=== PATIENT | female | born 1975 | race Caucasian/White ===

== ENCOUNTER 2020-02-28 08:18 | Emergency (ER) | payer MEDICARE, SELFPAY ==
[2020-02-28 08:28] VITALS: BP 135/80; PULSE 86; RESP 18; TEMP 36.6; O2SAT 100; BMI 31.0
--- NOTE | 2020-02-28 09:02 | XR_ITS ---
EXAMINATION: XR CHEST CLINICAL INFORMATION: Chest pain COMPARISON: None TECHNIQUE: Portable upright AP view of the chest was obtained. FINDINGS: There is no pneumothorax or pleural reaction. No airspace consolidation or groundglass opacity or effusion. The heart is normal in size. The costophrenic sulci are clear. The hilar and mediastinal contours are normal. No acute bony abnormality demonstrated. XR/XR chest 1V IMPRESSION: Unremarkable examination.
--- NOTE | 2020-02-28 09:02 | ECG_ITS ---
Test Reason : CHEST PAIN Blood Pressure : / mmHG Vent. Rate : 078 BPM Atrial Rate : 078 BPM P-R Int : 136 ms QRS Dur : 072 ms QT Int : 380 ms P-R-T Axes : 054 003 016 degrees QTc Int : 433 ms Normal sinus rhythm Nonspecific T wave abnormality Abnormal ECG When compared with ECG of 24-FEB-2017 15:04, No significant change was found Referred By: Rose Jordan Electronically Signed By:DREA XAVIER MD
--- NOTE | 2020-02-28 09:03 | ED_ITS ---
HPI - Chest Pain General Chief Complaint: Chest Pain Stated Complaint: SHOULDER PAIN, LEFT ARM NUMBNESS Time Seen by Provider: 02/28/20 09:01 Source: patient Mode of arrival: ambulatory Limitations: no limitations History of Present Illness HPI narrative: 44 y/o female with history of DM on insulin, depression who p resents with acute onset of sharp left sided chest pain that woke her from sleep at 3am. She states it is intermittent, worse with deep breaths, and has now improved to 7/10 from 02/01. She denies cardiac history in herself or her family. She denies nausea, SOB, diaphoresis. She states the pain radiates to her left anterior shoulder and she has some slight tingling in her left arm which is improving. MD complaint: chest pain Pertinent past history: asthma Onset (ago): hour(s) (6) Timing of current episode: episodic and still present Prior episodes: Yes Onset: during rest Pain location: left chest Pain radiation: left shoulder Severity: moderate Quality: sharp Relieving factors: rest Exacerbating factors: inspiration Treatment prior to arrival: none Risk Factors Coronary artery disease risk factors: diabetes Thoracic aortic dissection risk factors: none Related Data On Oral Contraceptives: No Previous Rx's Medication Instructions Recorded naproxen 500 mg PO BID PRN #20 tab 02/28/20 Allergies Allergy/AdvReac Type Severity Reaction Status Date / Time No Known Allergies Allergy Verified 02/28/20 08:34 metformin AdvReac Unknown diarrhea Uncoded 01/02/14 00:00 Review of Systems Review of Systems: Constitutional: No Fever, No Chills ENT/Mouth: No sore throat, No Rhinorrhea, No Swallowing Difficulty Eyes: No Eye Pain, No Swelling, No Redness Cardiovascular: + Chest Pain, No SOB, No Orthopnea, No Edema Respiratory: No Cough, No Sputum, No Wheezing, No dyspnea Gastrointestinal: No Nausea, No Vomiting, No Diarrhea, No abdominal Pain, No Hematochezia, No Melena Genitourinary: No Dysuria, No Urinary Frequency, No Hematuria Musculoskeletal: + joint pain, No Myalgias Skin: No Skin Lesions, No rash Neuro: No Weakness, + tingling/numbness, No Dizziness, No Headache Psych: No Anxiety/Panic, No Depression Heme/Lymph: No Bruising, No Lymphadenopathy Endocrine: No Polyuria, No Polydipsia PMFSH Past Medical History Attestation statement: The following information was validated with the patient. Medical History Diabetes Surgical History History of hysterectomy Social History Social History Advance Directives: Yes Advance Directives Information Provided: Yes Advance Directives on File: No Physical Exam Vital Signs: Vital Signs: Vital Signs Temp Pulse Resp BP Pulse Ox 02/28/20 08:28 98 F 86 18 135/80 100 Body Mass Index 31.0 Appearance: Alert. Oriented X3. No acute distress. Non-toxic appearing. Eyes: Pupils equal, round and reactive to light. ENT: Pharynx normal. Neck: Normal inspection. Neck supple. No JVD. CVS: Normal heart rate and rhythm. No murmur appreciapted Pulses normal. Respiratory: No respiratory distress. Slight expiratory wheeze at left base. No rhonchi or rales. Abdomen: Soft and non-tender. +BS x4 Skin: Skin warm and dry. Normal skin color. Normal skin turgor. No rashes. Extremities: No lower extremity edema. Negative Camilo's sign. Neuro: Oriented X 3. No motor deficit. No sensory deficit. Course Course Course Narrative: 44 y/o female with hx DM presenting with intermittent left sided chest pain that radiates to left shoulder. Need to r/o ACS, PE. EKG, labs, IVF and aspirin ordered. Dispo pending results and improvement. Reevaluation(s) Reevaluation #1: Pain continues to improve but it still present with deep inspiration. Lab workup is very reassuring with normal DDIMER, negative troponin, BNP. CXR normal. EKG did not show ischemic changes. Results were discussed with patient. Etiology of her pain is possibly costochondtitis vs atypical chest pain. She is stable for discharge at this time with plan to follow up with PCP. Strict return precautions discussed and patient expressed understanding. MDM - Chest Pain MDM Narrative Medical decision making narrative: possible pneumonia, asthma exercabation, ACS, PE Differential Diagnosis Differential diagnosis: Likely pneumothorax, stable angina, unstable angina pectoris, atypical chest pain, st elevation myocardial infarction, costochondritis, chest pain and biliary colic Medical Records Data Attestation: I reviewed the patient's medical records. Lab Data Attestation: I reviewed the patient's lab results. Result diagrams: 02/28/20 09:13 02/28/20 09:13 Labs: Lab Results 02/28/20 02/28/20 02/28/20 Range/Units 09:13 09:13 09:13 WBC 6.7 (4.8-10.8) X10*3/uL RBC 5.22 (4.20-5.50) X10*6/uL Hgb 15.8 (12.0-16.0) g/dl Hct 46.4 (37-47) % MCV 88.9 (80-98) fL MCH 30.3 (27.0-33.0) pg MCHC 34.1 (31.0-35.0) g/dl RDW 11.9 (11.0-16.0) % Plt Count 268 (160-400) X10*3/uL MPV 10.4 (9.4-12.3) fL Immature Gran % (Auto) 0.3 (0.0-0.4) % Neut % (Auto) 56.3 (45-73) % Lymph % (Auto) 33.7 (20-40) % [place] % (Auto) 7.7 (2-11) % Eos % (Auto) 1.4 (0-4) % Baso % (Auto) 0.6 (0-2) % Lymph # (Auto) 2.2 (1.2-4.9) X10*3/uL [place] # (Auto) 0.5 (0.1-1.2) X10*3/uL Eos # (Auto) 0.1 (0.0-0.4) X10*3/uL Baso # (Auto) 0.0 (0.0-0.2) X10*3/uL Abs Immat Gran (auto) 0.02 (0.00-0.03) X10*3/uL Absolute Neuts (auto) 3.8 (2.0-8.3) X10*3/uL Absolute Nucleated RBC 0.000 (0.0-0.012) X10*3/uL Nucleated RBC % (auto) 0.0 (0.0-0.2) /100WBC D-Dimer 207 NG/ML Sodium 140 (135-145) mmol/L Potassium 4.8 (3.3-5.1) mmol/l Chloride 105 (96-108) mmol/L Carbon Dioxide 25 (22-29) mmol/L Anion Gap 15 (12-20) BUN 9 (9-16) mg/dL Creatinine 0.70 (0.5-1.4) mg/dL Estim Creat Clear Calc 105.1 Estimated GFR > 60 Random Glucose 146 H (60-115) mg/dL Calcium 8.9 (8.4-10.2) mg/dL Magnesium 1.9 (1.6-2.6) mg/dL Troponin I High Sens (<3.5-17.0) ng/L B-Natriuretic Peptide (<100) pg/mL 02/28/20 Range/Units 09:13 WBC (4.8-10.8) X10*3/uL RBC (4.20-5.50) X10*6/uL Hgb (12.0-16.0) g/dl Hct (37-47) % MCV (80-98) fL MCH (27.0-33.0) pg MCHC (31.0-35.0) g/dl RDW (11.0-16.0) % Plt Count (160-400) X10*3/uL MPV (9.4-12.3) fL Immature Gran % (Auto) (0.0-0.4) % Neut % (Auto) (45-73) % Lymph % (Auto) (20-40) % [place] % (Auto) (2-11) % Eos % (Auto) (0-4) % Baso % (Auto) (0-2) % Lymph # (Auto) (1.2-4.9) X10*3/uL [place] # (Auto) (0.1-1.2) X10*3/uL Eos # (Auto) (0.0-0.4) X10*3/uL Baso # (Auto) (0.0-0.2) X10*3/uL Abs Immat Gran (auto) (0.00-0.03) X10*3/uL Absolute Neuts (auto) (2.0-8.3) X10*3/uL Absolute Nucleated RBC (0.0-0.012) X10*3/uL Nucleated RBC % (auto) (0.0-0.2) /100WBC D-Dimer NG/ML Sodium (135-145) mmol/L Potassium (3.3-5.1) mmol/l Chloride (96-108) mmol/L Carbon Dioxide (22-29) mmol/L Anion Gap (12-20) BUN (9-16) mg/dL Creatinine (0.5-1.4) mg/dL Estim Creat Clear Calc Estimated GFR Random Glucose (60-115) mg/dL Calcium (8.4-10.2) mg/dL Magnesium (1.6-2.6) mg/dL Troponin I High Sens < 3.5 (<3.5-17.0) ng/L B-Natriuretic Peptide < 10 (<100) pg/mL ECG Data ECG #1: Attestation: I personally reviewed and interpreted this ECG as follows: ECG interpretation date: 02/28/20 ECG interpretation time: 08:36 Interpretation: normal sinus rhythm, HR 78 bpm, normal WI interval. no ischemic changes Discharge Plan Discharge Clinical Impression: Atypical chest pain Patient Disposition: Home, Self-Care Instructions: Chest Pain (ED), Costochondritis (ED) Additional Instructions: You lab workup today was unremarkable. Life-threatening causes of chest pain were ruled out. It is possible your pain is from inflammation of the muscle between your ribs - we will start you on an anti-inflammatory medication for this. If you have return of worsening chest pain or if you develop change in chest pain or shortness of breath call 911 or come back to the ER for further evaluation. Follow up with your Primary Care doctor next week. Prescriptions: New naproxen 500 mg tablet 500 mg PO BID PRN (Reason: pain) Qty: 20 RF: 0
[2020-02-28] MEDS: 0.9 % Sodium Chloride 1,000 ML 999 ML IVCONT (09:10)
[2020-02-28 09:17] LABS: MANUAL DIFF FLAG NO
[2020-02-28 09:19] LABS: Hematocrit 46.4 % (37-47); Hemoglobin 15.8 g/dl (12.0-16.0); Mean Corpuscular HGB Conc 34.1 g/dl (31.0-35.0); Mean Corpuscular Hemoglobin 30.3 pg (27.0-33.0); Mean Corpuscular Volume 88.9 fL (80-98); Red Blood Count 5.22 X10*6/uL (4.20-5.50); White Blood Count 6.7 X10*3/uL (4.8-10.8)
[2020-02-28 09:20] LABS: Basophils Percent Auto 0.6 % (0-2); Eosinophils Absolute Auto 0.1 X10*3/uL (0.0-0.4); Eosinophils Percent Auto 1.4 % (0-4); Imm Gran Abs Auto 0.02 X10*3/uL (0.00-0.03); Imm Gran Pct Auto 0.3 % (0.0-0.4); Lymphocytes Absolute Auto 2.2 X10*3/uL (1.2-4.9); Lymphocytes Percent Auto 33.7 % (20-40); Mean Platelet Volume 10.4 fL (9.4-12.3); Monocytes Absolute Auto 0.5 X10*3/uL (0.1-1.2); Monocytes Percent Auto 7.7 % (2-11); Neutrophils Absolute Auto 3.8 X10*3/uL (2.0-8.3); Neutrophils Percent Auto 56.3 % (45-73); Platelet Count 268 X10*3/uL (160-400); Red Cell Distribution Width 11.9 % (11.0-16.0)
[2020-02-28] MEDS: Aspirin 325 MG TABLET PO (09:22)
[2020-02-28 09:30] LABS: D Dimer 207 NG/ML
[2020-02-28 09:59] LABS: B Type Natriuretic Peptide < 10 pg/mL (<100); Troponin-I High Sensitivity < 3.5 ng/L (<3.5-17.0)
[2020-02-28 10:00] LABS: Anion Gap 15 (12-20); Blood Urea Nitrogen 9 mg/dL (9-16); Calcium 8.9 mg/dL (8.4-10.2); Carbon Dioxide 25 mmol/L (22-29); Chloride 105 mmol/L (96-108); Creatinine Clr Calc Pharmacy 105.1; Estimated Glomerular Filt Rate > 60; Glucose Random 146 mg/dL (60-115); Magnesium 1.9 mg/dL (1.6-2.6); Potassium 4.8 mmol/l (3.3-5.1); Sodium 140 mmol/L (135-145)
[2020-02-28 11:10] VITALS: BP 130/79; PULSE 81; RESP 18; O2SAT 98
== END 2020-02-28 11:13 | disposition home or self-care (01) ==
PROVIDERS: Physician Assistant; Emergency Provider Emergency Medicine; PCP Internal Medicine
DX: R07.89 Other chest pain (principal); M25.512 Pain in left shoulder; E11.9 Type 2 diabetes mellitus without complications; J45.909 Unspecified asthma, uncomplicated; Z79.4 Long term (current) use of insulin; Z79.899 Other long term (current) drug therapy
CPT/HCPCS: 36415; 71045; 80048; 83735; 83880; 84484; 85025; 85379; 93005; 96360; 99284

== ENCOUNTER 2020-06-20 10:06 | Outpatient (REF) | payer MEDICARE, SELFPAY ==
--- NOTE | ~2020-06-20 | MM_ITS ---
EXAMINATION: MM SCREENING DIGITAL BREAST TOMOSYNTHESIS, BILATERAL CLINICAL INFORMATION: Screening. Asymptomatic. The lifetime risk of breast cancer based on the Tyrer-Cuzick Model is 8%. COMPARISON: Mammography: 10/01/2016, outside exam 08/08/2015 ([facility]). TECHNIQUE: Digital breast tomosynthesis is performed in both the craniocaudal and mediolateral oblique views along with computer-aided detection (CAD). Synthesized 2D images are generated from the tomosynthesis. FINDINGS: There are scattered areas of fibroglandular density (ACR BI-RADS breast composition Category b). There are no significant masses, abnormal calcifications, or other abnormalities. Parenchymal pattern is similar to prior studies. There is no developing density or architectural abnormality. There are scattered benign round and dermal calcifications again seen. No significant changes. MM/MM tomosynthesis screening BI IMPRESSION: No mammographic evidence of malignancy. ASSESSMENT: BI-RADS 2: Benign RECOMMENDATION: Routine annual mammography screening. This patient's information was entered into a reminder system with a target due date for their next mammogram.
== END 2020-06-20 10:07 | disposition home or self-care (01) ==
LOC: HO.MAMMO 10:06
PROVIDERS: Visit Provider Internal Medicine
DX: Z12.31 Encounter for screening mammogram for malignant neoplasm of breast (principal)
CPT/HCPCS: 77063; 77067

== ENCOUNTER 2020-07-07 09:43 | Outpatient (REF) | payer MEDICARE, SELFPAY ==
--- NOTE | ~2020-07-07 | US_ITS ---
EXAMINATION: US ABDOMEN COMPLETE CLINICAL INFORMATION: Abnormal findings of blood chemistry. COMPARISON: CT abdomen pelvis 11/30/2008. TECHNIQUE: Real-time imaging of the abdominal viscera. FINDINGS: PANCREAS: The head and body the pancreas are normal. Tail obscured by gas. ABDOMINAL AORTA: The proximal, mid, and distal segments are normal in caliber. INFERIOR VENA CAVA: Visualized portions are normal. LIVER: Liver echotexture is increased. The liver is normal in size. The liver contour is normal. No focal hepatic lesion. There is no intrahepatic biliary duct dilatation seen. GALLBLADDER: The gallbladder is physiologically distended. There is a 6 mm echogenic density adjacent to the gallbladder wall that does not move or shadow probably representing a polyp. No definite gallstones are seen. The gallbladder wall is otherwise normal. COMMON BILE DUCT: Normal in caliber measuring 0.45 cm in diameter. RIGHT KIDNEY: Normal. No hydronephrosis. No renal calculi or focal parenchymal lesions. The kidney measures 12.4 cm in maximum dimension. LEFT KIDNEY: There is a peripelvic cyst in the midpole that measures 1.5 x 1.3 x 1.5 cm. No hydronephrosis or renal calculi. The kidney measures 11.6 cm in maximum dimension. SPLEEN: Normal. The spleen measures 10.1 cm in maximum dimension. FREE FLUID: None. US/US abdomen complete IMPRESSION: Echogenic liver probably representing fatty infiltration. Probable 6 mm gallbladder wall polyp. Small left renal cyst. Limited visualization of the tail the pancreas.
--- NOTE | ~2020-07-07 | US_ITS ---
EXAMINATION: US THYROID CLINICAL INFORMATION: Nontoxic multinodular goiter. COMPARISON: CT neck with intravenous contrast dated 07/05/2019. Ultrasound soft tissue head/neck thyroid dated 01/15/2014. TECHNIQUE: Linear transducer grayscale and color Doppler examination with attention to the region of the thyroid. FINDINGS: SIZE: Measurements of the thyroid lobes and nodules are given in sagittal, anteroposterior and transverse dimensions respectively. Right Thyroid Lobe: 5.3 x 2.2 x 2.5 cm, volume 15.2 mL. Previously 3.7 x 1.6 x 2.6 cm, volume 8.0 mL. Parenchyma: The gland echotexture is homogeneous. Thyroid vascularity is normal. Left Thyroid Lobe: 4.6 x 1.1 x 1.7 cm, volume 4.5 mL. Previously 3.8 x 1.2 x 1.7 cm, volume 3.5 mL. Parenchyma: The gland echotexture is homogeneous. Thyroid vascularity is normal. Isthmus: 0.9 cm in maximum AP dimension. Previously 0.3 cm. Estimated total number of nodules greater than or equal to 1 cm: 4. News Commentator nodules are described as follows: 1. Location: Right. Size: 2.7 x 2.0 x 2.0 cm, volume 5.6 mL. Previously: 1.9 x 1.9 x 1.8 cm, volume 3.4 mL. Nodule characteristics: Composition: Mixed cystic and solid (1). Echogenicity: Isoechoic (1). Shape: Not taller than wide (0). Margins: Smooth (0). Echogenic Foci: Punctate echogenic foci (3). ACR TI-RADS total points: 5 Previous: n/a ACR TI-RADS category: 4 Previous: n/a Significant change in size (>/= 20% in 2 dimensions and minimal increase of 2 mm or 50% or greater increase in volume): Mild increase in the size of the nodule Change in features: None Change in ACR TI-RADS risk category: n/a 2. Location: Right. Size: 1.2 x 1.1 x 1.5 cm, volume 1.0 mL. Previously: 1.6 x 1.3 x 1.4 cm, volume 1.5 mL. Nodule characteristics: Composition: Solid (2). Echogenicity: Hyperechoic (1). Shape: Not taller than wide (0). Margins: Ill-defined (0). Echogenic Foci: None (0). ACR TI-RADS total points: 3 Previous: n/a ACR TI-RADS category: 3 Previous: n/a Significant change in size (>/= 20% in 2 dimensions and minimal increase of 2 mm or 50% or greater increase in volume): No change in the volume. Change in features: None. Change in ACR TI-RADS risk category: n/a 3. Location: Isthmus. Size: 3.2 x 1.4 x 1.6 cm, volume 3.7 mL. Previously: 1.7 x 0.9 x 1.6 cm, volume 1.3 mL. Nodule characteristics: Composition: Solid/almost completely solid (2). Echogenicity: Hyperechoic (1). Shape: Not taller than wide (0). Margins: Smooth (0). Echogenic Foci: Punctate echogenic foci (3). ACR TI-RADS total points: 6 Previous: n/a ACR TI-RADS category: 4 Previous: n/a Significant change in size (>/= 20% in 2 dimensions and minimal increase of 2 mm or 50% or greater increase in volume): Increase in volume. Change in features: None. Change in ACR TI-RADS risk category: n/a 4. Location: Left. Size: 1.2 x 1.0 x 1.1 cm, volume 0.7 mL. Previously: 1.0 x 1.0 x 1.0 cm, volume 0.5 mL. Nodule characteristics: Composition: Solid (2). Echogenicity: Isoechoic (1). Shape: Not taller than wide (0). Margins: Smooth (0). Echogenic Foci: Peripheral calcifications (2). ACR TI-RADS total points: 5 Previous: n/a ACR TI-RADS category: 4 Previous: n/a Significant change in size (>/= 20% in 2 dimensions and minimal increase of 2 mm or 50% or greater increase in volume): None Change in features: None Change in ACR TI-RADS risk category: n/a 5. Location: Left. Size: 0.5 x 0.5 x 0.6 cm, volume 0.08 mL. Previously: 0.6 x 0.8 x 0.5 cm, volume 0.13 mL. Nodule characteristics: Composition: Solid (2). Echogenicity: Cannot be determined (1). Shape: Not taller than wide (0). Margins: Smooth (0). Echogenic Foci: Peripheral calcifications (2). ACR TI-RADS total points: 5 Previous: n/a ACR TI-RADS category: 4 Previous: n/a Significant change in size (>/= 20% in 2 dimensions and minimal increase of 2 mm or 50% or greater increase in volume): None. Change in features: None. Change in ACR TI-RADS risk category: n/a NODES: No lymphadenopathy is seen in the tissue surrounding the thyroid gland. US/US thyroid IMPRESSION: Recommend fine-needle aspiration biopsy of isthmus nodule and solid and cystic lesion right thyroid nodule measuring 2.7 x 2.0 x 2.0 cm. ACR TI-RADS RECOMMENDATION REFERENCE: Ultrasound-guided fine-needle aspiration, followup ultrasound, no further follow up. * TR1 (0 point) and TR 2 (2 points): No FNA or follow up * TR3 (3 points): FNA if more than or equal to 2.5 cm in maximum dimension, followup ultrasound in 1, 3 and 5 years if 1.5 to 2.4 cm in maximum dimension. * TR4 (4-6 points): FNA if more than or equal to 1.5 cm in maximum dimension, followup ultrasound in 1, 2, 3 and 5 years if 1 to 1.4 cm in maximum dimension. * TR5 (more than or equal to 7 points): FNA if more than or equal to 1 cm in maximum dimension, followup ultrasound every year for 5 years if 0.5 to 0.9 cm in maximum dimension. * TR3, TR4 or TR5 nodules that are below the size threshold for follow up receive no follow up.
== END 2020-07-07 09:44 | disposition home or self-care (01) ==
LOC: HO.US 09:43
PROVIDERS: Visit Provider Internal Medicine
DX: E04.2 Nontoxic multinodular goiter (principal); R79.89 Other specified abnormal findings of blood chemistry
CPT/HCPCS: 76536; 76700

== ENCOUNTER 2020-09-11 14:20 | Outpatient (REF) | payer MEDICARE, SELFPAY ==
[2020-09-11 16:17] LABS: Free T4 (Free Thyroxine) 0.84 ng/dL (0.71-1.85); Thyroid Stimulating Hormone 0.59 uIU/mL (0.32-4.0)
[2020-09-12 15:26] LABS: Thyroglobulin Antibodies <1 IU/mL (< or = 1); Thyroid Peroxidase Antibodies 1 IU/mL (<9)
== END 2020-09-11 14:21 | disposition home or self-care (01) ==
LOC: HO.LAB 14:20
PROVIDERS: PCP Internal Medicine; Visit Provider Internal Medicine Endocrinology, Diabetes & Metabolism
DX: E04.2 Nontoxic multinodular goiter (principal); R13.10 Dysphagia, unspecified
CPT/HCPCS: 36415; 84439; 84443; 86376; 86800; 99202

== ENCOUNTER 2020-09-25 09:32 | Outpatient (REF) | payer MEDICARE, SELFPAY ==
--- NOTE | 2020-09-25 10:14 | PM.OP ---
Brief Operative Note Date of Service: 09/25/20 Pre-op diagnosis: NON TOXIC MULTINODULAR GOITER Post-op diagnosis: same Procedure: This procedure was explained to the patient. Alternatives, risks and benefits were discussed. Written consent was obtained. After sterile preparation of the skin, fine-needle aspiration biopsy of Isthmic thyroid nodule size 3.2 x 1.4 x 1.6 cm was performed under direct ultrasound guidance to confirm accurate needle placement. Three passes were performed with 27 gauge needles. Sample was submitted to cytology, initial cytology reading was adequate. Two passes were dedicated for [employer] genomic sequencing laser beam color scanner operator test. Second fine-needle aspiration biopsy of right mid pole large thyroid nodule cyst 2.7 c 2.0 x 2.0 cm was performed under direct ultrasound guidance to confirm accurate needle placement. First pass was an aspiration with a 25 gauge needle, 4 ml of clear red fluid was aspirated. Three extra passes were performed with 27 gauge needles. Sample was submitted to cytology, initial cytology reading was adequate. Two passes were dedicated for [employer] genomic sequencing laser beam color scanner operator test. Third fine-needle aspiration biopsy of Right lower pole thyroid nodule size 1.5 x 1. 2 x 1.1 cm was performed under direct ultrasound guidance to confirm accurate needle placement. Two passes were performed with 27 gauge needles. Sample was submitted to cytology, initial cytology reading was adequate. One pass was dedicated for [employer] genomic sequencing laser beam color scanner operator test. Patient tolerated procedure well. Aftercare instructions were provided. Impression: uncomplicated fine-needle aspiration biopsy of isthmic, right mid pole and right lower pole thyroid nodules under direct ultrasound guidance. Surgeon: Pau Bartholomew MD FACE Anesthesia: local (Lidocaine 1 %, 2 ml) Was an Ceo [employer] used for this Procedure?: No Estimated blood loss (mL): 0 Condition: stable Disposition: same day
[2020-09-25] MEDS: Lidocaine HCl 1 % MPF 5 ML VIAL SUBCUT (10:23)
== END 2020-09-25 09:33 | disposition home or self-care (01) ==
LOC: HO.US 09:32
PROVIDERS: Visit Provider Internal Medicine Endocrinology, Diabetes & Metabolism
DX: E04.2 Nontoxic multinodular goiter (principal)
CPT/HCPCS: 10005; 10006; 88172; 88173; 88177; 88305

== ENCOUNTER → 2020-10-14 14:31 | Outpatient (BNVA) | payer MEDICARE, SELFPAY | PROVIDERS: PCP Internal Medicine; Visit Provider Internal Medicine Endocrinology, Diabetes & Metabolism | DX: E04.2 Nontoxic multinodular goiter (principal); R89.9 Unspecified abnormal finding in specimens from other organs, systems and tissues | CPT/HCPCS: 99212 ==

== ENCOUNTER → 2021-02-12 14:54 | Outpatient (BNVA) | payer MEDICARE, SELFPAY | PROVIDERS: PCP Internal Medicine; Visit Provider Internal Medicine | DX: C73 Malignant neoplasm of thyroid gland (principal); E04.2 Nontoxic multinodular goiter; E89.0 Postprocedural hypothyroidism; E11.9 Type 2 diabetes mellitus without complications; E55.9 Vitamin D deficiency, unspecified; Z88.8 Allergy status to other drugs, medicaments and biological substances | CPT/HCPCS: 99212 ==

== ENCOUNTER 2021-02-17 18:23 | Emergency (ER) | payer MEDICARE, SELFPAY ==
[2021-02-17 19:02] VITALS: BP 143/81; PULSE 82; RESP 16; TEMP 37; O2SAT 97; BMI 32.2
[2021-02-17 19:56] LABS: Anion Gap 14 (12-20); Blood Urea Nitrogen 9 mg/dL (9-16); Calcium 9.1 mg/dL (8.4-10.2); Carbon Dioxide 21 mmol/L (22-29); Chloride 105 mmol/L (96-108); Creatinine Clr Calc Pharmacy 90.5; Estimated Glomerular Filt Rate > 60; Glucose Random 255 mg/dL (60-115); Sodium 136 mmol/L (135-145)
[2021-02-17 20:03] LABS: MANUAL DIFF FLAG NO
[2021-02-17 20:04] LABS: Basophils Percent Auto 0.4 % (0-2); Eosinophils Absolute Auto 0.2 X10*3/uL (0.0-0.4); Eosinophils Percent Auto 1.7 % (0-4); Hematocrit 41.2 % (37-47); Hemoglobin 14.3 g/dl (12.0-16.0); Imm Gran Abs Auto 0.01 X10*3/uL (0.00-0.03); Imm Gran Pct Auto 0.1 % (0.0-0.4); Lymphocytes Absolute Auto 4.1 X10*3/uL (1.2-4.9); Lymphocytes Percent Auto 42.3 % (20-40); Mean Corpuscular HGB Conc 34.7 g/dl (31.0-35.0); Mean Corpuscular Hemoglobin 30.6 pg (27.0-33.0); Mean Platelet Volume 10.9 fL (9.4-12.3); Monocytes Absolute Auto 0.7 X10*3/uL (0.1-1.2); Monocytes Percent Auto 7.2 % (2-11); Neutrophils Absolute Auto 4.7 X10*3/uL (2.0-8.3); Neutrophils Percent Auto 48.3 % (45-73); Platelet Count 250 X10*3/uL (160-400); Red Blood Count 4.68 X10*6/uL (4.20-5.50); Red Cell Distribution Width 12.3 % (11.0-16.0); White Blood Count 9.6 X10*3/uL (4.8-10.8)
[2021-02-17 20:14] LABS: Lactic Acid 3.3 mmol/L (0.5-2.0)
--- NOTE | 2021-02-17 20:57 | ED.SKABFB ---
HPI - Skin/Abscess/Foreign Bdy General Chief complaint: Skin/Abscess/Foreign Body Stated complaint: Abscess Time Seen by Provider: 02/17/21 20:53 Source: patient Mode of arrival: ambulatory Limitations: no limitations History of Present Illness MD complaint: abscess/boil Onset (ago): day(s) (10) Tetanus up to date: yes Location: generalized (abddomen) Severity: mild Quality: aching Pain Consistency: constant Relieving factors: none Exacerbating factors: palpation Context: other (hx of boils int he pat) Associated symptoms: chills and nausea Treatments prior to arrival: attempted to drain pus at home Related Data Home Medications Medication Instructions Recorded Confirmed alcohol swabs pad TOPICAL BID 09/11/20 10/14/20 gabapentin 300 mg capsule 300 mg PO TID 09/11/20 10/14/20 glipizide 10 mg tablet, extended 10 mg PO DAILY 09/11/20 10/14/20 release 24 hr metformin 1,000 mg tablet 1,000 mg PO 09/11/20 10/14/20 pen needle, diabetic 32 gauge x #50 ea 09/11/20 10/14/20 levothyroxine 125 mcg tablet 125 mcg PO DAILY 02/12/21 Previous Rx's Medication Instructions Recorded hydrocortisone 2.5 % topical cream 1 applic TOPICAL TID PRN #20 g 02/28/20 cephalexin 500 mg capsule 500 mg PO TID 7 Days #21 cap 02/17/21 doxycycline hyclate 100 mg capsule 100 mg PO BID 7 Days #14 cap 02/17/21 ondansetron 4 mg disintegrating 4 mg PO Q8H PRN #20 tab 02/17/21 tablet Allergies Allergy/AdvReac Type Severity Reaction Status Date / Time No Known Allergies Allergy Verified 02/17/21 19:01 metformin AdvReac Unknown diarrhea Uncoded 01/02/14 00:00 Review of Systems Review of Systems: Constitutional : No Fever, pos Chills ENT/Mouth : No sore throat, No Rhinorrhea Eyes: No Eye Pain, No Swelling, No Redness Cardiovascular : No Chest Pain, No SOB Respiratory : No Cough, No Sputum Gastrointestinal : pos Nausea, No Vomiting, No Diarrhea, No abdominal Pain Genitourinary : No Dysuria, No Hematuria Musculoskeletal : No joint pain, No Myalgias, No Joint Swelling Skin : No Skin Lesions, positive skin rash Neuro : No Weakness, No Numbness, No Headache Psych : No Anxiety, No Depression Heme/Lymph: No Bruising, No Bleeding,No Lymphadenopathy Endocrine : No Polyuria, No Polydipsia All other systems reviewed and are negative [facility] Past Medical History Attestation statement: The following information was validated with the patient. Medical History Abnormal thyroid biopsy Diabetes Non-toxic multinodular goiter Postoperative hypothyroidism Thyroid cancer Vitamin D deficiency Surgical History History of hysterectomy Hx of thyroidectomy Family History Family History Father No problems noted. Mother Diabetes mellitus Depression Social History Social History Alcohol intake: current Alcohol intake frequency: does not drink Patient Tobacco Use Status: Never used Tobacco Advance Directives: No Physical Exam Vital Signs: Vital Signs: Last Vital Signs Temp 98.7 F 02/17/21 21:07 Pulse 71 02/17/21 21:07 Resp 18 02/17/21 21:07 BP 133/78 02/17/21 21:07 Pulse Ox 99 02/17/21 21:07 Body Mass Index 32.2 Appearance: Alert. Oriented X3. No acute distress. Eyes: Pupils equal, round and reactive to light. ENT: Pharynx normal. Neck: Normal inspection. Neck supple. CVS: Normal heart rate and rhythm. Pulses normal. Respiratory: No respiratory distress. Breath sounds normal. Abdomen: Soft and nontender. LLQ small 2cm boil with 3 heads and drainage noted, it is very superficial mild surrounding erythema no extension Skin: Skin warm and dry. Normal skin color. Normal skin turgor. Extremities: No lower extremity edema. No calf ttp Neuro: Oriented X 3. No motor deficit. No sensory deficit. Course Course Course Narrative: lactic acidosis due to metformin use and not infection or severe sepsis lactic acid clearing without intervention MDM - Skin/Abscess/Foreign Bdy MDM Narrative Medical decision making narrative: 45 yo female with DM recent parathyroids surgery (calcium normal) here with c/o boil to LLQ x 10 days, she is not toxic appearing it is not large no extending cellulitis - at this time will attempt to drain more here as well as start on dual abx and wound recheck - dispo per results and findings Lab Data Result diagrams: 02/17/21 19:47 02/17/21 19:38 Labs: Lab Results 02/17/21 02/17/21 02/17/21 Range/Units 19:38 19:47 19:47 WBC 9.6 (4.8-10.8) X10*3/uL RBC 4.68 (4.20-5.50) X10*6/uL Hgb 14.3 (12.0-16.0) g/dl Hct 41.2 (37-47) % MCV 88.0 (80-98) fL MCH 30.6 (27.0-33.0) pg MCHC 34.7 (31.0-35.0) g/dl RDW 12.3 (11.0-16.0) % Plt Count 250 (160-400) X10*3/uL MPV 10.9 (9.4-12.3) fL Immature Gran % (Auto) 0.1 (0.0-0.4) % Neut % (Auto) 48.3 (45-73) % Lymph % (Auto) 42.3 H (20-40) % [place] % (Auto) 7.2 (2-11) % Eos % (Auto) 1.7 (0-4) % Baso % (Auto) 0.4 (0-2) % Lymph # (Auto) 4.1 (1.2-4.9) X10*3/uL [place] # (Auto) 0.7 (0.1-1.2) X10*3/uL Eos # (Auto) 0.2 (0.0-0.4) X10*3/uL Baso # (Auto) 0.0 (0.0-0.2) X10*3/uL Abs Immat Gran (auto) 0.01 (0.00-0.03) X10*3/uL Absolute Neuts (auto) 4.7 (2.0-8.3) X10*3/uL Absolute Nucleated RBC 0.000 (0.0-0.012) X10*3/uL Nucleated RBC % (auto) 0.0 (0.0-0.2) /100WBC Sodium 136 (135-145) mmol/L Potassium 4.0 (3.3-5.1) mmol/L Chloride 105 (96-108) mmol/L Carbon Dioxide 21 L (22-29) mmol/L Anion Gap 14 (12-20) BUN 9 (9-16) mg/dL Creatinine 0.82 (0.5-1.4) mg/dL Estim Creat Clear Calc 90.5 Estimated GFR > 60 Random Glucose 255 H (60-115) mg/dL Lactic Acid 3.3 H* (0.5-2.0) mmol/L Calcium 9.1 (8.4-10.2) mg/dL 02/17/21 Range/Units 21:30 WBC (4.8-10.8) X10*3/uL RBC (4.20-5.50) X10*6/uL Hgb (12.0-16.0) g/dl Hct (37-47) % MCV (80-98) fL MCH (27.0-33.0) pg MCHC (31.0-35.0) g/dl RDW (11.0-16.0) % Plt Count (160-400) X10*3/uL MPV (9.4-12.3) fL Immature Gran % (Auto) (0.0-0.4) % Neut % (Auto) (45-73) % Lymph % (Auto) (20-40) % [place] % (Auto) (2-11) % Eos % (Auto) (0-4) % Baso % (Auto) (0-2) % Lymph # (Auto) (1.2-4.9) X10*3/uL [place] # (Auto) (0.1-1.2) X10*3/uL Eos # (Auto) (0.0-0.4) X10*3/uL Baso # (Auto) (0.0-0.2) X10*3/uL Abs Immat Gran (auto) (0.00-0.03) X10*3/uL Absolute Neuts (auto) (2.0-8.3) X10*3/uL Absolute Nucleated RBC (0.0-0.012) X10*3/uL Nucleated RBC % (auto) (0.0-0.2) /100WBC Sodium (135-145) mmol/L Potassium (3.3-5.1) mmol/L Chloride (96-108) mmol/L Carbon Dioxide (22-29) mmol/L Anion Gap (12-20) BUN (9-16) mg/dL Creatinine (0.5-1.4) mg/dL Estim Creat Clear Calc Estimated GFR Random Glucose (60-115) mg/dL Lactic Acid 2.9 H* (0.5-2.0) mmol/L Calcium (8.4-10.2) mg/dL Procedures Abscess I/D Site: abdomen Side (if applicable): left Local Anesthetic: other anesthetic (LET) Amount of anesthesia used (mL): 3 Technique: needle aspiration Sent for culture/gram staining?: No Irrigation: Yes Packing used?: none Discharge Plan Discharge Clinical Impression: Abscess of skin or subcutaneous tissue Qualifiers: Site of cutaneous abscess: trunk Site of cutaneous abscess of trunk: abdominal wall Qualified Code(s): L02.211 - Cutaneous abscess of abdominal wall Patient Disposition: Home, Self-Care Instructions: Abscess (ED) Additional Instructions: return to ED for any worsening symptoms or concerns keep clean dry and covered, allow it to drain Prescriptions: New doxycycline hyclate 100 mg capsule 100 mg PO BID 7 Days Qty: 14 RF: 0 cephalexin 500 mg capsule 500 mg PO TID 7 Days Qty: 21 RF: 0 ondansetron 4 mg tablet,disintegrating 4 mg PO Q8H PRN (Reason: nausea and vomiting) Qty: 20 RF: 0 No Action hydrocortisone 2.5 % cream 1 applic topical TID PRN (Reason: itching) Qty: 20 RF: 0 metformin 1,000 mg tablet 1,000 mg PO RF: 0 glipizide 10 mg tablet extended release 24hr 10 mg PO DAILY RF: 0 gabapentin 300 mg capsule 300 mg PO TID RF: 0 (DME) pen needle, diabetic 32 gauge x 5/32 needle See Rx Instructions ea .ROUTE DAILY Qty: 50 RF: 0 alcohol swabs Pads, Medicated topical BID RF: 0 levothyroxine 125 mcg tablet 125 mcg PO DAILY RF: 0 Stand Alone Forms: Work/School Release
[2021-02-17 21:07] VITALS: BP 133/78; PULSE 71; RESP 18; TEMP 37.1; O2SAT 99
[2021-02-17] MEDS: HYDROcodone Bit/Acetam 5/325 TABLET 1 TAB PO (21:33)
[2021-02-17] MEDS: Ondansetron ODT 4 MG TAB.RAPDIS TRANSLINGU (21:33)
[2021-02-17] MEDS: cephALEXin 500 MG CAPSULE PO (21:33)
[2021-02-17] MEDS: Lidocaine/Epineph/Tetracaine 3 ML GEL.PF.APP TOPICAL (21:34)
[2021-02-17 21:50] LABS: Reflex Lactate? Lactic Acid Added
[2021-02-17 21:58] LABS: Lactic Acid 2.9 mmol/L (0.5-2.0)
== END 2021-02-17 22:18 | disposition home or self-care (01) ==
PROVIDERS: Emergency Provider Emergency Medicine; PCP Internal Medicine
DX: L02.211 Cutaneous abscess of abdominal wall (principal); E11.9 Type 2 diabetes mellitus without complications; Z85.850 Personal history of malignant neoplasm of thyroid
CPT/HCPCS: 10060; 36415; 80048; 83605; 85025; 87040; 99284

== ENCOUNTER 2021-03-23 08:23 | Outpatient (REF) | payer MEDICARE, SELFPAY ==
[2021-03-23 09:13] LABS: Phosphorus 3.3 mg/dL (2.7-4.5)
[2021-03-23 09:39] LABS: Free T4 (Free Thyroxine) 1.56 ng/dL (0.71-1.85); Thyroid Stimulating Hormone 0.06 uIU/mL (0.32-4.0); Vitamin D 25-OH Total 19.4 ng/mL (>30)
[2021-03-24 11:07] LABS: Thyroglobulin 0.1 ng/mL; Thyroglobulin Antibodies <1 IU/mL (< or = 1)
[2021-03-24 14:51] LABS: Calcium (PTHI) 9.3 mg/dL (8.6-10.2); PTHI 53 pg/mL (14-64)
== END 2021-03-23 08:24 | disposition home or self-care (01) ==
LOC: HO.LAB 08:23
PROVIDERS: PCP Internal Medicine; Visit Provider Internal Medicine
DX: C73 Malignant neoplasm of thyroid gland (principal); E55.9 Vitamin D deficiency, unspecified
CPT/HCPCS: 36415; 82306; 83970; 84100; 84432; 84439; 84443; 86800

== ENCOUNTER → 2021-03-30 10:58 | Outpatient (BNVA) | payer MEDICARE, SELFPAY | PROVIDERS: PCP Internal Medicine; Visit Provider Internal Medicine | DX: E89.0 Postprocedural hypothyroidism (principal); E55.9 Vitamin D deficiency, unspecified; Z85.850 Personal history of malignant neoplasm of thyroid | CPT/HCPCS: 99212 ==

== ENCOUNTER 2021-07-07 08:40 | Outpatient (REF) | payer OTHER, SELFPAY ==
[2021-07-07 10:01] LABS: HCG Quantitative < 2 mIU/mL
== END 2021-07-07 08:41 | disposition home or self-care (01) ==
LOC: HO.LAB 08:40
PROVIDERS: PCP Internal Medicine; Visit Provider Internal Medicine
DX: Z85.850 Personal history of malignant neoplasm of thyroid (principal)
CPT/HCPCS: 36415; 84702

== ENCOUNTER 2021-07-08 08:42 | Outpatient (REF) | payer OTHER, SELFPAY ==
[2021-07-08 10:30] LABS: Thyroid Stimulating Hormone 0.53 uIU/mL (0.32-4.0)
[2021-07-09 09:41] LABS: Thyroglobulin 0.1 ng/mL; Thyroglobulin Antibodies <1 IU/mL (< or = 1)
== END 2021-07-08 08:43 | disposition home or self-care (01) ==
LOC: HO.LAB 08:42
PROVIDERS: PCP Internal Medicine; Visit Provider Internal Medicine
DX: Z85.850 Personal history of malignant neoplasm of thyroid (principal)
CPT/HCPCS: 36415; 84432; 84443; 86800

== ENCOUNTER → 2021-07-09 13:08 | Outpatient (BNVA) | payer OTHER, SELFPAY | PROVIDERS: PCP Internal Medicine; Visit Provider Internal Medicine | DX: E89.0 Postprocedural hypothyroidism (principal); E55.9 Vitamin D deficiency, unspecified; Z85.850 Personal history of malignant neoplasm of thyroid | CPT/HCPCS: 99212 ==

== ENCOUNTER → 2021-07-13 10:42 | Outpatient (BNVA) | payer OTHER, SELFPAY | PROVIDERS: PCP Internal Medicine; Referring Provider Internal Medicine; Visit Provider Nurse Practitioner Family | DX: Z12.11 Encounter for screening for malignant neoplasm of colon (principal) | CPT/HCPCS: 99202 ==

== ENCOUNTER 2021-08-04 08:46 | Outpatient (REF) | payer OTHER, SELFPAY ==
[2021-08-04 10:36] LABS: HCG Quantitative < 2 mIU/mL; Thyroid Stimulating Hormone 27.69 uIU/mL (0.32-4.0)
[2021-08-05 21:26] LABS: Thyroglobulin 1.3 ng/mL; Thyroglobulin Antibodies <1 IU/mL (< or = 1)
== END 2021-08-04 08:47 | disposition home or self-care (01) ==
LOC: HO.LAB 08:46
PROVIDERS: PCP Internal Medicine; Visit Provider Internal Medicine
DX: C73 Malignant neoplasm of thyroid gland (principal); Z85.850 Personal history of malignant neoplasm of thyroid
CPT/HCPCS: 36415; 84432; 84443; 84702; 86800

== ENCOUNTER → 2021-08-19 09:54 | Outpatient (BNVA) | payer OTHER, SELFPAY | PROVIDERS: PCP Internal Medicine; Visit Provider Internal Medicine | DX: E89.0 Postprocedural hypothyroidism (principal); E55.9 Vitamin D deficiency, unspecified; Z85.850 Personal history of malignant neoplasm of thyroid | CPT/HCPCS: Q3014 ==

== ENCOUNTER → 2021-08-25 10:39 | Day surgery (SDC) | payer OTHER, SELFPAY ==
[2021-08-20 11:01] VITALS: BMI 32.1
--- NOTE | 2021-08-24 12:01 | HO.ANESPROP2 ---
HPI - Anesthesia Eval Consult details Narrative: 46yo F for Colonoscopy PMFSH Active Problems Active Problems: All Active Problems (Updated 08/20/21 @ 09:39 by Brandy Bhat RN) History of thyroid cancer (Acute) Vitamin D deficiency (Acute) Postoperative hypothyroidism (Acute) Thyroid cancer (Acute) Abnormal thyroid biopsy (Acute) Non-toxic multinodular goiter (Acute) Past Medical History Medical History Abnormal thyroid biopsy Diabetes History of thyroid cancer Non-toxic multinodular goiter Postoperative hypothyroidism Thyroid cancer Vitamin D deficiency Family History Family History Father No problems noted. Mother Diabetes mellitus Depression Surgical History Surgical History History of hysterectomy Hx of thyroidectomy Social History Social History Alcohol intake: current Alcohol intake frequency: does not drink Patient Tobacco Use Status: Never used Tobacco Meds Allergies Allergy/AdvReac Type Severity Reaction Status Date / Time metformin AdvReac Intermediate Diarrhea Verified 08/20/21 11:04 (adverse reaction but is taking metformin) Home Medications Medication Instructions Recorded Confirmed Last Taken Type alcohol swabs pad TOPICAL BID 09/11/20 08/19/21 Unknown History glipizide 10 mg tablet, extended 10 mg PO DAILY 09/11/20 08/20/21 Unknown History release 24 hr pen needle, diabetic 32 gauge x #50 ea 09/11/20 08/19/21 Unknown History glipizide 2.5 mg tablet, extended 2.5 mg PO DAILY 03/30/21 08/20/21 Unknown History release 24 hr insulin glargine 100 unit/mL (3 11 unit SUBCUT QPM 03/30/21 08/20/21 Unknown History mL) subcutaneous pen (Lantus Solostar U-100 Insulin) metformin 1,000 mg tablet 1,000 mg PO BID tab 03/30/21 08/20/21 Unknown History pioglitazone 15 mg tablet 1 tab PO DAILY 08/20/21 08/20/21 Unknown History Exam Exam Date and Time: August 24, 2021 1201 Height,Weight and Vital Signs: Height 5 ft 4 in Weight 84.822 kg Pertinent Lab Results Pertinent Lab Results: Laboratory Tests 02/17/21 02/17/21 19:38 19:47 WBC 9.6 Hgb 14.3 Hct 41.2 Plt Count 250 Sodium 136 Potassium 4.0 Chloride 105 Carbon Dioxide 21 L BUN 9 Creatinine 0.82 Assessment and Plan Assessment Anesthesia Assessment: Chart Reviewed
[2021-08-25 10:58] VITALS: BP 122/86; PULSE 73; RESP 18; TEMP 36.8; O2SAT 100
--- NOTE | 2021-08-25 10:58 | MHC.SHP ---
Pre-Procedural Eval Section A Date of Service: 08/25/21 Section B Chief Complaint: screening Relevant Family History (Specify if Yes): No Relevant Social History: None Present Medications: see Short Stay Collaborative assessment Medical History: Significant History (Abnormal thyroid biopsy Diabetes History of thyroid cancer Non-toxic multinodular goiter Postoperative hypothyroidism Thyroid cancer Vitamin D deficiency) History of Previous Operations: Relevant previous surgery/procedure and date(s) (thyroidectomy, ) Allergies: Allergies Allergy/AdvReac Type Severity Reaction Status Date / Time metformin AdvReac Intermediate Diarrhea Verified 08/20/21 11:04 (adverse reaction but is taking metformin) Review of Systems Sugical H&P ROS: Negative: Constitution, Cardiovascular, Respiratory, Neurological, Psychiatric, Hem-Onc, Allergic/Immunologic, Gastrointestinal, Genitourinary, Musculoskeletal, Integumentary, Endocrine and Eyes/Ears/Nose/Throat Exam Surgical H&P Exam: Normal: HEENT, Normal: Heart, Normal: Lungs, Normal: Extremities, Normal: Abdomen, Normal: Skin and Normal: Neurological Plan Diagnosis/Plan: Unchanged I have reviewed the history and physical and performed a pertinent physical examination on my patient. No changes have occurred unless specified.
[2021-08-25] MEDS: Sodium Phosphate,Mono-Dibasic 133 ML ENEMA PR (11:10)
[2021-08-25 11:12] LABS: Glucose, Whole Blood 178 mg/dL (60-115)
== END ==
PROVIDERS: PCP Internal Medicine; Visit Provider Internal Medicine Gastroenterology
DX: Z12.11 Encounter for screening for malignant neoplasm of colon (principal); Z53.8 Procedure and treatment not carried out for other reasons; E11.9 Type 2 diabetes mellitus without complications; Z79.84 Long term (current) use of oral hypoglycemic drugs; Z85.850 Personal history of malignant neoplasm of thyroid
CPT/HCPCS: 82947

== ENCOUNTER 2021-09-23 12:36 | Outpatient (REF) | payer OTHER, SELFPAY ==
[2021-09-23 14:15] LABS: Free T4 (Free Thyroxine) 0.96 ng/dL (0.71-1.85); Thyroid Stimulating Hormone 6.27 uIU/mL (0.32-4.0)
[2021-09-29 15:41] LABS: Thyroglobulin 0.2 ng/mL
[2021-09-30 12:52] LABS: Thyroglobulin Antibodies <1 IU/mL (< or = 1)
== END 2021-09-23 12:37 | disposition home or self-care (01) ==
LOC: HO.LAB 12:36
PROVIDERS: PCP Internal Medicine; Visit Provider Internal Medicine
DX: Z85.850 Personal history of malignant neoplasm of thyroid (principal)
CPT/HCPCS: 36415; 84432; 84439; 84443; 86800

== ENCOUNTER 2021-10-22 12:38 | Outpatient (REF) | payer OTHER, SELFPAY ==
--- NOTE | ~2021-10-22 | US_ITS ---
EXAMINATION: US SOFT TISSUE HEAD/NECK CLINICAL INFORMATION: Personal history of malignant neoplasm of thyroid. COMPARISON: US thyroid 07/07/2020 and 01/15/2014. TECHNIQUE: Ultrasound of the neck soft tissues is performed with high- frequency salter-scale imaging and color Doppler. FINDINGS: THYROID BED: Prior thyroidectomy. There is a hypoechoic area in left thyroid bed, question residual tissue. Measures 1.0 x 0.5 x 0.3 cm. RIGHT NECK SOFT TISSUES: Scattered architecturally normal nodes are present. The nodes show normal fatty hilus, normal cortical thickness, and no cystic change or calcification. No abnormal color flow. The largest nodes are as follows: Level IB: 0.4 x 0.4 x 0.4 cm. Normal deonte architecture. Level 1B: 1.0 x 1.2 x 0.4 cm. Normal deonte architecture. LEFT NECK SOFT TISSUES: Scattered architecturally normal nodes are present. The nodes show normal fatty hilus, normal cortical thickness, and no cystic change or calcification. No abnormal color flow. The largest nodes are as follows: Level 1B: 0.9 x 0.9 x 0.8 cm. Normal deonte architecture. Level 2: 1.7 x 1.1 x 0.7 cm. Abnormal deonte architecture. Level 2: 1.2 x 1.1 x 0.7 cm. Normal deonte architecture. Level 2: 1.0 x 0.9 x 0.8 cm. Normal deonte architecture. US/US soft tiss head and/or neck IMPRESSION: 1. There is residual thyroid tissue visualized in the left thyroid bed, measuring 1.0 cm. 2. There are bilateral neck lymph nodes which have normal architecture except for level 2 left lymph node measuring 1.7 cm and having abnormal architecture. If clinically indicated this can be biopsied with ultrasound.
== END 2021-10-22 12:39 | disposition home or self-care (01) ==
LOC: HO.US 12:38
PROVIDERS: PCP Internal Medicine; Visit Provider Internal Medicine
DX: Z85.850 Personal history of malignant neoplasm of thyroid (principal)
CPT/HCPCS: 76536

== ENCOUNTER → 2021-11-05 13:21 | Outpatient (BNVA) | payer OTHER, SELFPAY | PROVIDERS: PCP Internal Medicine; Visit Provider Internal Medicine | DX: E89.0 Postprocedural hypothyroidism (principal); E55.9 Vitamin D deficiency, unspecified; Z85.850 Personal history of malignant neoplasm of thyroid; Z79.899 Other long term (current) drug therapy | CPT/HCPCS: Q3014 ==

== ENCOUNTER 2021-11-06 12:15 | Outpatient (REF) | payer OTHER, SELFPAY ==
[2021-11-06 13:36] LABS: Free T4 (Free Thyroxine) 1.23 ng/dL (0.71-1.85); Thyroid Stimulating Hormone 2.02 uIU/mL (0.32-4.0)
[2021-11-09 17:36] LABS: Thyroglobulin <0.1 ng/mL
[2021-11-09 17:42] LABS: Thyroglobulin Antibodies <1 IU/mL (< or = 1)
== END 2021-11-06 12:16 | disposition home or self-care (01) ==
LOC: HO.LAB 12:15
PROVIDERS: PCP Internal Medicine; Visit Provider Internal Medicine
DX: Z85.850 Personal history of malignant neoplasm of thyroid (principal)
CPT/HCPCS: 36415; 84432; 84439; 84443; 86800

== ENCOUNTER 2021-12-29 09:47 | Day surgery (SDC) | payer OTHER, SELFPAY ==
--- NOTE | 2021-12-25 12:35 | HO.ANESPROP2 ---
Documented by User: Kassandra Pimentel NP 12/25/21 12:38 HPI - Anesthesia Eval Consult details Narrative: 46yo F for Colonoscopy PMFSH Active Problems Active Problems: All Active Problems (Updated 08/20/21 @ 09:39 by Brandy Bhat, YULI) History of thyroid cancer (Acute) Vitamin D deficiency (Acute) Postoperative hypothyroidism (Acute) Thyroid cancer (Acute) Abnormal thyroid biopsy (Acute) Non-toxic multinodular goiter (Acute) Past Medical History Medical History Abnormal thyroid biopsy Diabetes History of thyroid cancer Non-toxic multinodular goiter Postoperative hypothyroidism hemorrhage Vitamin D deficiency Family History Family History Father No problems noted. Mother Diabetes mellitus Depression Surgical History Surgical History History of hysterectomy Hx of thyroidectomy Social History Social History Alcohol intake: current Alcohol intake frequency: does not drink Patient Tobacco Use Status: Never used Tobacco Use of substances other than those prescribed or required for medical reasons: No Are you DNR?: No Advance Directives: No Advance Directives Information Provided: Yes Meds Allergies Allergy/AdvReac Type Severity Reaction Status Date / Time metformin AdvReac Intermediate Diarrhea Verified 11/05/21 13:26 (adverse reaction but is taking metformin) Home Medications Medication Instructions Recorded Confirmed Last Taken Type alcohol swabs pad topical BID 09/11/20 11/05/21 Unknown History glipizide 10 mg tablet, extended 10 mg PO DAILY 09/11/20 12/23/21 Unknown History release 24 hr pen needle, diabetic 32 gauge x #50 ea 09/11/20 11/05/21 Unknown History glipizide 2.5 mg tablet, extended 2.5 mg PO DAILY 03/30/21 12/23/21 Unknown History release 24 hr insulin glargine 100 unit/mL (3 11 unit subcut QPM 03/30/21 12/23/21 Unknown History mL) subcutaneous pen (Lantus Solostar U-100 Insulin) metformin 1,000 mg tablet 1,000 mg PO BID 03/30/21 12/23/21 Unknown History pioglitazone 15 mg tablet 1 tab PO DAILY 08/20/21 12/23/21 Unknown History Exam Exam Date and Time: December 25, 2021 1235 Assessment and Plan Assessment Anesthesia Assessment: Chart Reviewed Documented by User: Edgar Gavin MD 12/29/21 10:59 [facility] Past Medical History Medical History Abnormal thyroid biopsy Diabetes History of thyroid cancer Non-toxic multinodular goiter Postoperative hypothyroidism hemorrhage Vitamin D deficiency Patient : No Family History Family History Father No problems noted. Mother Diabetes mellitus Depression Family history of problems with anesthesia: No Surgical History Surgical History History of hysterectomy Hx of thyroidectomy History of Problems with Anesthesia: No Social History Social History Alcohol intake: current Alcohol intake frequency: does not drink Patient Tobacco Use Status: Never used Tobacco Use of substances other than those prescribed or required for medical reasons: No Are you DNR?: No Advance Directives: No Advance Directives Information Provided: Yes Meds Allergies Allergy/AdvReac Type Severity Reaction Status Date / Time metformin AdvReac Intermediate Diarrhea Verified 11/05/21 13:26 (adverse reaction but is taking metformin) Home Medications Medication Instructions Recorded Confirmed Last Taken Type alcohol swabs pad topical BID 09/11/20 11/05/21 Unknown History glipizide 10 mg tablet, extended 10 mg PO DAILY 09/11/20 12/23/21 Unknown History release 24 hr pen needle, diabetic 32 gauge x #50 ea 09/11/20 11/05/21 Unknown History glipizide 2.5 mg tablet, extended 2.5 mg PO DAILY 03/30/21 12/23/21 Unknown History release 24 hr insulin glargine 100 unit/mL (3 11 unit subcut QPM 03/30/21 12/23/21 Unknown History mL) subcutaneous pen (Lantus Solostar U-100 Insulin) metformin 1,000 mg tablet 1,000 mg PO BID 03/30/21 12/23/21 Unknown History pioglitazone 15 mg tablet 1 tab PO DAILY 08/20/21 12/23/21 Unknown History Exam Airway Mallampati Class: II TM Dist: >3cm Neck ROM: Full Loose/Missing/Broken Teeth: No Heart: rrr Lungs: clear Assessment and Plan Final Anesthetic Review Family History of Problems with Anesthesia: No History of Problems with Anesthesia: No NPO: Yes ASA Class: II Final Preanesthetic Review: No Changes in Pt Med Stat, Meds/Allgs Chart Reviewed, Consent Obtained/Reviewed and Anes Risks/Benef Reviewed Patient Risk: Intermediate Procedure Risk: Low Anesthetic Plan Anesthetic Plan: MAC: Disposition: Standard PACU
--- NOTE | 2021-12-29 10:04 | P.HPSUR_ITS ---
Pre-Procedural Eval Section A Date of Service: 12/29/21 Section B Chief Complaint: screening Relevant Family History (Specify if Yes): No Relevant Social History: None Present Medications: see Short Stay Collaborative assessment Medical History: Significant History (Abnormal thyroid biopsy Diabetes History of thyroid cancer Non-toxic multinodular goiter Postoperative hypothyroidism Thyroid cancer Vitamin D deficiency) History of Previous Operations: Relevant previous surgery/procedure and date(s) (History of hysterectomy Hx of thyroidectomy) Allergies: Allergies Allergy/AdvReac Type Severity Reaction Status Date / Time metformin AdvReac Intermediate Diarrhea Verified 11/05/21 13:26 (adverse reaction but is taking metformin) Review of Systems Sugical H&P ROS: Negative: Constitution, Cardiovascular, Respiratory, Neurologi kerri, Psychiatric, Hem-Onc, Allergic/Immunologic, Gastrointestinal, Genitourinary, Musculoskeletal, Integumentary, Endocrine and Eyes/Ears/Nose/Throat Exam Surgical H&P Exam: Normal: HEENT, Normal: Heart, Normal: Lungs, Normal: Extremities, Normal: Abdomen, Normal: Skin and Normal: Neurological Plan Diagnosis/Plan: Unchanged I have reviewed the history and physical and performed a pertinent physical examination on my patient. No changes have occurred unless specified.
[2021-12-29 10:17] VITALS: BP 132/81; PULSE 71; RESP 18; TEMP 36.4; O2SAT 99; BMI 31.9
[2021-12-29] MEDS: Lactated Ringers 1,000 ML 100 ML IVCONT (10:55)
[2021-12-29 11:05] LABS: Glucose, Whole Blood 136 mg/dL (60-115)
--- NOTE | 2021-12-29 11:05 | P.OP_ITS ---
Operative Note Operative Note Date of Service: 12/29/21 Narrative: Operative Information Procedure Description: Colonoscopy Indication: screening Anesthesia: MAC COLONOSCOPY Instrument: Olympus variable stiffness pediatric scope 190L Colonoscopy Monitoring: Vital signs and clinical assessment, continuous EKG monitoring, Pulse oximetry, Carbon Dioxide monitoring and blood pressure monitoring were done throughout the procedure. Colon withdrawal time was 13 minutes. Procedure: The patient was placed in the left lateral decubitis position and pre-procedure medications were administered. After a digital rectal examination of the ano-rectum, the video colonoscope was inserted into the rectum and advanced through the colon to the cecum/TI. The colonoscope was slowly withdrawn in a retrograde panoramic fashion and the colon mucosa was carefully examined including a retroflexed view of the rectum. Findings and interventions are described below. Procedure Difficulty: easy Findings: Terminal Ileum-normal Cecum: 4-5 mm sessile polyp removed with cold forceps Ascending Colon: 6-8 mm sessile polyp removed with cold forceps Transverse Colon -normal Descending Colon: 13-15 mm pedunculated polyp removed with cold snare and x 1 clip applied for hemostasis Sigmoid Colon: normal Rectum: Retroflexion with large internal hemorrhoids, grade II with skin tag Anorectum - normal Colon preparation: [place] Bowel Preparation Scale Right colon; 2 Transverse colon: 3 Left colon; 3 (0 = Unprepared colon segment with mucosa not seen due to solid stool that cannot be cleared. 1 = Portion of mucosa of the colon segment seen, but other areas of the colon segment not well seen due to staining, residual stool and/or opaque liquid. 2 = Minor amount of residual staining, small fragments of stool and/or opaque liquid, but mucosa of colon segment seen well. 3 = Entire mucosa of colon segment seen well with no residual staining, small fragments of stool or opaque liquid) Impression and Post Procedure Diagnosis: polyps internal hemorrhoids Plan: High fiber diet leaflet Avoid straining at stool, epsom salts and sitz bath, anusol supps or cream Repeat Colonoscopy in 1-2 years due to polyps or earlier if clinically indicated Above findings were reviewed with the patient and relevant handouts were provided if indicated.
[2021-12-29 11:38] VITALS: BP 108/52; PULSE 70; RESP 16; TEMP 36.2; O2SAT 97
[2021-12-29 11:53] VITALS: BP 119/62; PULSE 72; RESP 16; O2SAT 99
[2021-12-29 12:08] VITALS: BP 129/80; PULSE 66; RESP 16; O2SAT 99
[2021-12-29 12:23] VITALS: BP 128/71; PULSE 66; RESP 16; TEMP 36.2; O2SAT 98
== END 2021-12-29 12:30 | disposition home or self-care (01) ==
PROVIDERS: PCP Internal Medicine; Visit Provider Internal Medicine Gastroenterology
PROC: 0DJD8ZZ Inspection of Lower Intestinal Tract, Via Natural or Artificial Opening Endoscopic (ICD-10-PCS; CPT 45378; principal; 2021-12-29 11:20)
DX: Z12.11 Encounter for screening for malignant neoplasm of colon (principal); D12.4 Benign neoplasm of descending colon; K63.5 Polyp of colon; K64.1 Second degree hemorrhoids; E89.0 Postprocedural hypothyroidism; E04.2 Nontoxic multinodular goiter; Z85.850 Personal history of malignant neoplasm of thyroid; E55.9 Vitamin D deficiency, unspecified; E11.9 Type 2 diabetes mellitus without complications; Z79.4 Long term (current) use of insulin; Z79.899 Other long term (current) drug therapy; Z88.8 Allergy status to other drugs, medicaments and biological substances
CPT/HCPCS: 45385; 45380; 82947; 88305

== ENCOUNTER 2022-03-08 08:15 | Outpatient (REF) | payer OTHER, SELFPAY ==
[2022-03-08 09:40] LABS: Free T4 (Free Thyroxine) 1.31 ng/dL (0.71-1.85); Thyroid Stimulating Hormone 0.52 uIU/mL (0.32-4.0)
[2022-03-09 09:37] LABS: Thyroglobulin <0.1 ng/mL; Thyroglobulin Antibodies <1 IU/mL (< or = 1)
== END 2022-03-08 08:16 | disposition home or self-care (01) ==
LOC: HO.LAB 08:15
PROVIDERS: PCP Internal Medicine; Visit Provider Internal Medicine
DX: E89.0 Postprocedural hypothyroidism (principal)
CPT/HCPCS: 36415; 84432; 84439; 84443; 86800

== ENCOUNTER → 2022-05-05 10:43 | Outpatient (BNVA) | payer OTHER, SELFPAY | PROVIDERS: PCP Internal Medicine; Visit Provider Internal Medicine | DX: E89.0 Postprocedural hypothyroidism (principal); E55.9 Vitamin D deficiency, unspecified; Z85.850 Personal history of malignant neoplasm of thyroid | CPT/HCPCS: 99212 ==

== ENCOUNTER 2022-05-05 11:39 | Outpatient (REF) | payer OTHER, SELFPAY ==
[2022-05-05 14:48] LABS: Free T4 (Free Thyroxine) 1.18 ng/dL (0.71-1.85)
[2022-05-10 06:38] LABS: Thyroglobulin Antibody <1 IU/mL (<=1); Thyroglobulin Level <0.1 ng/mL
== END 2022-05-05 11:40 | disposition home or self-care (01) ==
LOC: HO.10HDL 11:39
PROVIDERS: Visit Provider Internal Medicine
DX: Z85.850 Personal history of malignant neoplasm of thyroid (principal)
CPT/HCPCS: 36415; 84432; 84439; 84443; 86800

== ENCOUNTER 2022-05-26 16:29 | Outpatient (REF) | payer OTHER, SELFPAY ==
--- NOTE | ~2022-05-26 | US_ITS ---
EXAMINATION: US SOFT TISSUE NECK CLINICAL INFORMATION: Personal history of malignant neoplasm thyroid. COMPARISON: Ultrasound soft tissue head/neck 10/22/2021. Ultrasound soft tissue head/neck thyroid dated 07/07/2020. CT neck 07/05/2019. TECHNIQUE: Ultrasound of the neck soft tissues is performed with high- frequency salter-scale imaging and color Doppler. FINDINGS: THYROID BED: Prior thyroidectomy. No residual thyroid tissue demonstrated in the thyroid bed. No cystic or solid nodules demonstrated in the thyroid bed. RIGHT NECK SOFT TISSUES: Scattered architecturally normal nodes are present. The nodes show normal fatty hilus, normal cortical thickness, and no cystic change or calcification. No abnormal color flow. The largest nodes are as follows: Level 1B: 0.5 x 0.6 x 0.6 cm. Prior: 0.4 x 0.4 x 0.4 cm. Normal deonte architecture. Level 1B: 0.9 x 0.5 x 1.3 cm. Prior: 1.0 x 1.2 x 0.4 cm. Normal deonte architecture. Level 3: 3.7 x 0.7 x 1.6 cm. Prior: Not seen. Normal deonte architecture. LEFT NECK SOFT TISSUES: Scattered architecturally normal nodes are present. The nodes show normal fatty hilus, normal cortical thickness, and no cystic change or calcification. No abnormal color flow. The largest nodes are as follows: Level 1B: 0.7 x 0.8 x 0.7 cm. Prior: 0.9 x 0.9 x 0.8 cm. Normal deonte architecture. Level 2: 0.8 x 0.7 x 1.1 cm. Prior: 0.9 x 0.9 x 0.8 cm. Normal deonte architecture. Level 2: 1.7 x 0.7 x 1.1 cm. Prior: 1.7 x 1.1 x 0.7 cm. There is focal cortical thickening to 4 mm. Level 2: 1.5 x 0.4 x 0.7 cm. Prior: 1.2 x 1.1 x 0.7 cm. Normal deonte architecture. US/US soft tiss head and/or neck IMPRESSION: 1. Multiple bilateral cervical lymph nodes are redemonstrated, as detailed. Several are mildly enlarged. A 1.7 x 0.7 x 1.1 cm left cervical level 2 lymph node shows focal cortical thickening to 4 mm. As well, a 3.7 x 0.7 x 1.6 cm lymph node with normal architectural features is newly appreciated in right cervical level 3. These are nonspecific and should be managed on a clinical basis. Further work-up may be indicated. 2. If clinically indicated further evaluation of the neck soft tissues and nodes may be performed with CT soft tissue neck with intravenous contrast.
== END 2022-05-26 16:30 | disposition home or self-care (01) ==
LOC: HO.US 16:29
PROVIDERS: Visit Provider Internal Medicine
DX: Z85.850 Personal history of malignant neoplasm of thyroid (principal)
CPT/HCPCS: 76536

== ENCOUNTER → 2022-06-23 08:46 | Outpatient (BNVA) | payer OTHER, SELFPAY | PROVIDERS: PCP Internal Medicine; Visit Provider Internal Medicine | DX: E55.9 Vitamin D deficiency, unspecified (principal); E89.0 Postprocedural hypothyroidism; Z85.850 Personal history of malignant neoplasm of thyroid | CPT/HCPCS: 99212 ==

== ENCOUNTER 2022-07-27 08:43 | Outpatient (REF) | payer OTHER, SELFPAY ==
[2022-07-27 10:11] LABS: Thyroid Stimulating Hormone 18.65 uIU/mL (0.32-4.0)
[2022-07-31 06:44] LABS: Thyroglobulin Antibody <1 IU/mL (<=1); Thyroglobulin Level 0.1 ng/mL
== END 2022-07-27 08:44 | disposition home or self-care (01) ==
LOC: HO.LAB 08:43
PROVIDERS: PCP Internal Medicine; Visit Provider Internal Medicine
DX: Z85.850 Personal history of malignant neoplasm of thyroid (principal)
CPT/HCPCS: 36415; 84432; 84443; 86800

== ENCOUNTER 2022-08-03 09:01 | Outpatient (REF) | payer OTHER, SELFPAY ==
[2022-08-03 11:40] LABS: Free T4 (Free Thyroxine) < 0.42 ng/dL (0.71-1.85); HCG Quantitative < 2 mIU/mL; Thyroid Stimulating Hormone 34.12 uIU/mL (0.32-4.0)
[2022-08-08 06:08] LABS: Thyroglobulin Antibody <1 IU/mL (<=1); Thyroglobulin Level 0.1 ng/mL
== END 2022-08-03 09:02 | disposition home or self-care (01) ==
LOC: HO.LAB 09:01
PROVIDERS: PCP Internal Medicine; Visit Provider Internal Medicine
DX: C73 Malignant neoplasm of thyroid gland (principal)
CPT/HCPCS: 84432; 84439; 84443; 84702; 86800

== ENCOUNTER → 2022-08-17 12:42 | Outpatient (BNVA) | payer OTHER, SELFPAY | PROVIDERS: PCP Internal Medicine; Visit Provider Orthopaedic Surgery | DX: M65.321 Trigger finger, right index finger (principal); M65.332 Trigger finger, left middle finger; M72.0 Palmar fascial fibromatosis [Dupuytren]; R20.0 Anesthesia of skin | CPT/HCPCS: 20550; 99202; J1100 ==

== ENCOUNTER → 2022-09-15 12:28 | Outpatient (BNVA) | payer OTHER, SELFPAY | PROVIDERS: PCP Internal Medicine; Visit Provider Orthopaedic Surgery | DX: M65.321 Trigger finger, right index finger (principal); M65.332 Trigger finger, left middle finger; R20.0 Anesthesia of skin; R20.2 Paresthesia of skin; M72.0 Palmar fascial fibromatosis [Dupuytren] | CPT/HCPCS: 99212; J1100 ==

== ENCOUNTER 2022-09-30 09:26 | Outpatient (REF) | payer OTHER, SELFPAY ==
--- NOTE | 2022-09-30 09:29 | EMG_ITS ---
Bilateral median and ulnar motor and sensory studies were performed. Bilateral radial sensory study was performed and paraspinal muscles were tested with a needle. IMPRESSION: 1. [id number] left and mild right median neuropathy across carpal tunnel. 2. Mild left ulnar neuropathy across cubital tunnel. MD NEHEMIAH Miller/FORTUNATO / [id number]
== END 2022-09-30 09:27 | disposition home or self-care (01) ==
LOC: HO.NEURO 09:26
PROVIDERS: PCP Internal Medicine; Visit Provider Orthopaedic Surgery
DX: R20.0 Anesthesia of skin (principal); R20.2 Paresthesia of skin
CPT/HCPCS: 95886; 95911

== ENCOUNTER 2022-11-02 09:55 | Outpatient (REF) | payer OTHER, SELFPAY ==
[2022-11-02 13:28] LABS: Free T4 (Free Thyroxine) 0.82 ng/dL (0.71-1.85); Thyroid Stimulating Hormone 16.25 uIU/mL (0.32-4.0)
== END 2022-11-02 09:56 | disposition home or self-care (01) ==
LOC: HO.LAB 09:55
PROVIDERS: PCP Internal Medicine; Visit Provider Internal Medicine
DX: Z85.850 Personal history of malignant neoplasm of thyroid (principal)
CPT/HCPCS: 36415; 84439; 84443

== ENCOUNTER 2022-11-08 08:17 | Outpatient (AMB) | payer OTHER, SELFPAY ==
--- NOTE | 2022-11-08 08:17 | MHC.OFFVIS ---
Intake Intake Visit Reasons: F/U Thyroid Cancer, DM2 Allergies metformin Adverse Reaction (Intermediate, Verified 11/08/22 08:53) Diarrhea (adverse reaction but is taking metformin) Medication List - Last Reconciled 11/08/22 by Tiffany Ashford, DO alcohol swabs pad topical BID bisacodyl (Dulcolax (bisacodyl)) 10 mg (2 x 5 mg) PO ONCE 1 day cholecalciferol (vitamin D3) 50 mcg PO DAILY 30 days glipizide ER 10 mg PO DAILY glipizide ER 2.5 mg PO DAILY hydrocortisone 2.5% 1 appl topical TID PRN insulin glargine (Lantus Solostar U-100 Insulin) 11 units subcut QPM levothyroxine 137 mcg PO DAILY 30 days liothyronine (Cytomel) 25 mcg PO DAILY 14 days menthol-zinc oxide 0.44-20.6 % (Calmoseptine) 1 appl topical QID PRN metformin 1,000 mg PO BID ondansetron 4 mg PO Q8H PRN pen needle, diabetic As directed pioglitazone 1 tab PO DAILY polyethylene glycol 3350 (Miralax) 238 grams PO ONCE HPI HPI Comments History of Present Illness Details 47 YO Female who is seen in F/U for Thyroid Cancer. She was previously followed by Dr. العراقي. She had fine-needle aspiration on 09/25/2020 of isthmic nodule, right mid pole nodule, both were benign follicular nodules [place] category 2. She also had a biopsy of right lower pole nodule, cytology was consistent with atypia of undetermined significance, [place] category 3. Afirma is suspicious for malignancy.? The risk of malignancy is 50%. She underwent a total thyroidectomy by Dr. Mendez 01/26/2021. 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 There was no extrathyroidal extension. No angioinvasion. No lymphatic invasion, and margins were uninvolved. 0 lymph nodes were examined. This was pT2pNx. Postoperatively she was started on levothryoxine, now taking 137 mcg PO daily. She then underwent I131 ablation with 29.9 mCi I-131 08/05/2021. Labs 08/04/2021 TSH was 27.69 at that time, with TG 1.3, TGAB <1. Post-treatment WBS revealed faint uptake in the left thyroid bed, and avid uptake superior, which on SPECT-CT localizes to the thyroid cartilage. This finding was thought to be nonspecific and may indicate residual thyroid tissue, vs lymph node vs ectopic thyroid. She then had US head and neck 10/22/2021 that revealed a question of residual tissue within the L thyroid bed measuring 1 cm. She was asked to repeat her thyroid US in 3 months but failed to do so. Labs 03/08/2022 with TSH 0.52, TG <0.1 and TGAB <1. US was repeated 05/26/2022 with no significant abnormalities found, though 1 lymph node did reveal cortical thickening. She then underwent a repeat WBS 08/06/2022, which was completed via thyroid hormone withdrawal. Labs 08/03/2022 TSH 34.12, TG 0.1 and TG antibodies negative. WBS 08/06/2022 revealed a faint focus of uptake to the right of midline, decreased from prior. This was located anterolateral to the thyroid cartilage. There was no CT correlate on SPECT CT. This was thought to likely represent trace reisdual tissue along the thyroglossal duct. She does report feeling well today, and has no complaints. US Head and Neck: 05/26/2022 THYROID BED: Prior thyroidectomy. No residual thyroid tissue demonstrated in the thyroid bed. No cystic or solid nodules demonstrated in the thyroid bed. RIGHT NECK SOFT TISSUES: Scattered architecturally normal nodes are present. The nodes show normal fatty hilus, normal cortical thickness, and no cystic change or calcification. No abnormal color flow. The largest nodes are as follows: Level 1B: 0.5 x 0.6 x 0.6 cm. Prior: 0.4 x 0.4 x 0.4 cm. Normal deonte architecture. Level 1B: 0.9 x 0.5 x 1.3 cm. Prior: 1.0 x 1.2 x 0.4 cm. Normal deonte architecture. Level 3: 3.7 x 0.7 x 1.6 cm. Prior: Not seen. Normal deonte architecture. LEFT NECK SOFT TISSUES: Scattered architecturally normal nodes are present. The nodes show normal fatty hilus, normal cortical thickness, and no cystic change or calcification. No abnormal color flow. The largest nodes are as follows: Level 1B: 0.7 x 0.8 x 0.7 cm. Prior: 0.9 x 0.9 x 0.8 cm. Normal deonte architecture. Level 2: 0.8 x 0.7 x 1.1 cm. Prior: 0.9 x 0.9 x 0.8 cm. Normal deonte architecture. Level 2: 1.7 x 0.7 x 1.1 cm. Prior: 1.7 x 1.1 x 0.7 cm. There is focal cortical thickening to 4 mm. Level 2: 1.5 x 0.4 x 0.7 cm. Prior: 1.2 x 1.1 x 0.7 cm. Normal deonte architecture. Labs: Laboratory Tests 08/03/22 08/03/22 11/02/22 09:17 09:17 Unknown TSH 34.12 H 16.25 H Thyroglobulin 0.1 H Thyroglobulin Anti body <1 PFSH Medical History Abnormal thyroid biopsy Diabetes History of thyroid cancer Non-toxic multinodular goiter Postoperative hypothyroidism hemorrhage Vitamin D deficiency Surgical History History of hysterectomy Hx of colonoscopy Hx of thyroidectomy Family History Father No problems noted. 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 She is seen in F/U today. She underwent I131 ablation with 29.9 mCi 08/05/2021. Post-treatment scan did reveal residual uptake in the thyroid bed and possibly the thyroid cartilage. Repeat US Head and neck revealed no abnormal tissue within the thyroid bed. She then underwent a repeat WBS which revealed persistent focus of increased uptake in the thyroid bed to the R of midline. There was no CT correlate. Stimulated TG was 0.1, which is reassuring. We reviewed this in detail today. We reviewed that there may be a microscopic or small focus of tissue remaining within the thyroid bed. We reviewed that this may represent thyroid cancer, or normal thyroid tissue. If this represents thyroid cancer there is a chance that this may grow and spread within her body, which can lead to significant morbidity and mortality. She verbalizes understanding. We did review that this focus is unable to be seen on CT scan, and the proper course of action at this time is to continue to monitor her tumor marker levels as well as serial US of the neck. If any growth or change in this area is seen we can complete FNA biopsy of the area, or send for repeat surgical exploration. She verbalizes understanding. Plan is to increase her levothyroxine to 150 mcg PO daily and repeat labs in 6 weeks time. Goal TSH is 0.1-0.5. We will also repeat an US head and neck in 3 months time. She will F/U thereafter. She will repeat a WBS in 1 years time to follow this area and will also repeat stimulated TG levels at that time as well. All of her questions were answered. She is in agreement with this plan of care. I spent 30 minutes in reviewing the record, seeing the patient and documenting in the medical record, including 8 minutes on the phone with the Patient. (2) Postoperative hypothyroidism: Code(s): E89.0 - Postprocedural hypothyroidism Plan: Management as per above. (3) Vitamin D deficiency: Code(s): E55.9 - Vitamin D deficiency, unspecified Plan: Remains on Vitamin D 2000 IU daily. Will continue. Orders: Orders Free T4 (Free Thyroxine) 6 Weeks E89.0 - Postprocedural hypothyroidism Thyroid Stimulating Hormone 6 Weeks E89.0 - Postprocedural hypothyroidism Thyroglobulin Tumor Marker 6 Weeks E89.0 - Postprocedural hypothyroidism Medications: New levothyroxine 150 mcg PO DAILY 30 days 30 tabs 3RF E89.0 - Postprocedural hypothyroidism Discontinued liothyronine (Cytomel) Discontinued Reason: Doctor's Order 25 mcg PO DAILY 14 days 14 tabs 0RF Z85.850 - Personal history of malignant neoplasm of thyroid levothyroxine Discontinued Reason: Doctor's Order 137 mcg PO DAILY 30 days 30 tabs 11RF Telehealth Telehealth Location of provider rendering services: practice address Location of patient: address on file Patient Identification confirmed using: Name, : Yes Telehealth method: voice only Patient verbally consented to treatment: Yes Patient verbally consented to billing insurance company: Yes Patient informed of any privacy concerns related to visit: Yes Coding Level of Care Code Tele Est Pt Level 3 (23136) Diagnoses History of thyroid cancer Z85.850 Postoperative hypothyroidism E89.0 Vitamin D deficiency E55.9
== END 2022-11-08 16:45 | disposition home or self-care (01) ==
LOC: HO.ENCR 08:17
PROVIDERS: PCP Internal Medicine; Visit Provider Internal Medicine
DX: E89.0 Postprocedural hypothyroidism (principal); Z85.850 Personal history of malignant neoplasm of thyroid; E55.9 Vitamin D deficiency, unspecified
CPT/HCPCS: 99443

== ENCOUNTER → 2022-11-08 08:17 | Outpatient (BNVA) | payer OTHER, SELFPAY | PROVIDERS: PCP Internal Medicine; Visit Provider Internal Medicine ==

== ENCOUNTER 2023-02-08 12:06 | Outpatient (REF) | payer OTHER, SELFPAY ==
--- NOTE | ~2023-02-08 | US_ITS ---
EXAMINATION: US SOFT TISSUE NECK CLINICAL INFORMATION: Status post thyroidectomy for malignancy. COMPARISON: Prior ultrasound examinations, most recently 05/26/2022. TECHNIQUE: Ultrasound of the neck soft tissues is performed with high- frequency salter-scale imaging and color Doppler. FINDINGS: THYROID BED: Prior thyroidectomy. Within the left thyroid bed, a 1.0 x 0.3 x 0.3 cm soft tissue density is seen. This was seen on the ultrasound dated 10/22/2021, measuring 1.0 x 0.5 x 0.3 cm. No cystic or solid nodules demonstrated in the thyroid bed. RIGHT NECK SOFT TISSUES: Scattered architecturally normal nodes are present. The nodes show normal fatty hilus, normal cortical thickness, and no cystic change or calcification. No abnormal color flow. The largest nodes are as follows: Level 1B: 1.2 x 0.4 x 0.5 cm. Prior: 1.2 x 0.9 x 0.5 cm. Normal deonte architecture. Level 3: 1.1 x 0.4 x 0.4 cm. Prior: 2.7 x 1.6 x 0.7 cm. Normal deonte architecture. Level 4: 1.1 x 0.4 x 0.5 cm. Prior: Not seen. There are irregular margins. Level 5A: 0.7 x 0.2 x 0.2 cm. Prior: Not seen. Normal deonte architecture. Level 5A: 0.7 x 0.2 x 0.2 cm. Prior: Not seen. Normal deotne architecture. LEFT NECK SOFT TISSUES: Scattered architecturally normal nodes are present. The nodes show normal fatty hilus, normal cortical thickness, and no cystic change or calcification. No abnormal color flow. The largest nodes are as follows: Level 1B: 0.7 x 0.8 x 0.7 cm. Prior: 0.7 x 0.8 x 0.7 cm. Normal deonte architecture. Level 1B: 1.9 x 0.9 x 1.9 cm. Prior: Newly seen. There is focal cortical thickening. Level 2: 0.8 x 0.7 x 1.1 cm. Prior: 0.9 x 0.6 x 0.6 cm. Normal deonte architecture. Level 5A: 0.6 x 0.4 x 0.6 cm. Prior: Newly seen. Normal deonte architecture. Level 5B: 0.9 x 0.1 x 0.1 cm. Prior: Newly seen. Normal deonte architecture. US/US soft tiss head and/or neck IMPRESSION: 1. Question residual left thyroid tissue again seen measuring 1.0 x 0.3 x 0.3 cm. The interim stability from 10/22/2021 is reassuring. This could be further evaluated with contrast-enhanced CT, if clinically indicated. 2. Multiple bilateral cervical lymph nodes are seen, as detailed. The most concerning of these is a new 1.9 cm in transverse diameter lymph node with focal cortical thickening seen at left level 1B. Further work-up may be indicated.
[2023-02-08 13:32] LABS: Free T4 (Free Thyroxine) 1.41 ng/dL (0.71-1.85); Thyroid Stimulating Hormone 0.05 uIU/mL (0.32-4.0)
[2023-02-11 05:22] LABS: Thyroglobulin Antibody <1 IU/mL (<=1); Thyroglobulin Level <0.1 ng/mL
== END 2023-02-08 12:07 | disposition home or self-care (01) ==
LOC: HO.LAB 12:06
PROVIDERS: Visit Provider Internal Medicine
DX: E89.0 Postprocedural hypothyroidism (principal); Z85.850 Personal history of malignant neoplasm of thyroid
CPT/HCPCS: 36415; 76536; 84432; 84439; 84443; 86800

== ENCOUNTER 2023-02-08 12:34 | Outpatient (REF) | payer OTHER, SELFPAY | END 2023-02-08 12:35 | disposition home or self-care (01) | LOC: HO.US 12:34 | PROVIDERS: PCP Internal Medicine; Visit Provider Internal Medicine | DX: Z13.89 Encounter for screening for other disorder (principal) ==

== ENCOUNTER 2023-02-16 12:40 | Outpatient (AMB) | payer OTHER, SELFPAY ==
[2023-02-16 13:00] VITALS: PULSE 76; BMI 32.0
--- NOTE | 2023-02-16 13:00 | A.OFFVIS_ITS ---
Intake Vital Signs 02/16/23 13:00 Height 5 ft 4 in Weight 186 lb 4.65 oz BMI 32.0 Blood Pressure Location Lt brachial Position Sitting Pulse 76 Pulse Source Pulse Oximeter Intake Visit Reasons: F/U Thyroid Cancer, DM2 Intake Note: Patient present for Thyroid Cancer follow up visit. Previously followed by Dr. Parker. 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 She was previously followed by Dr. العراقي. The patient last saw Dr. Parker on 11/08/2022 She had fine-needle aspiration on 09/25/2020 of isthmic nodule, right mid pole nodule, both were benign follicular nodules [place] category 2. She also had a biopsy of right lower pole nodule, cytology was consistent with atypia of undetermined significance, [place] category 3. Afirma is suspicious for malignancy.? The risk of malignancy is 50%. She underwent a total thyroidectomy by Dr. Mendez 01/26/2021. 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 There was no extrathyroidal extension. No angioinvasion. No lymphatic invasion, and margins were uninvolved. 0 lymph nodes were examined. This was pT2pNx. Postoperatively she was started on levothryoxine, now taking 137 mcg PO daily. She then underwent I131 ablation with 29.9 mCi I-131 08/05/2021. Labs 08/04/2021 TSH was 27.69 at that time, with TG 1.3, TGAB <1. Post-treatment WBS revealed faint uptake in the left thyroid bed, and avid uptake superior, which on SPECT-CT localizes to the thyroid cartilage. This finding was thought to be nonspecific and may indicate residual thyroid tissue, vs lymph node vs ectopic thyroid. She then had US head and neck 10/22/2021 that revealed a question of residual tissue within the L thyroid bed measuring 1 cm. She was asked to repeat her thyroid US in 3 months but failed to do so. Labs 03/08/2022 with TSH 0.52, TG <0.1 and TGAB <1. US was repeated 05/26/2022 with no significant abnormalities found, though 1 lymph node did reveal cortical thickening. She then underwent a repeat WBS 08/06/2022, which was completed via thyroid hormone withdrawal. Labs 08/03/2022 TSH 34.12, TG 0.1 and TG antibodies negative. WBS 08/06/2022 revealed a faint focus of uptake to the right of midline, decreased from prior. This was located anterolateral to the thyroid cartilage. There was no CT correlate on SPECT CT. This was thought to likely represent trace reisdual tissue along the thyroglossal duct. She does report feeling well today, and has no complaints. US Head and Neck: 05/26/2022 THYROID BED: Prior thyroidectomy. No residual thyroid tissue demonstrated in the thyroid bed. No cystic or solid nodules demonstrated in the thyroid bed. RIGHT NECK SOFT TISSUES: Scattered architecturally normal nodes are present. The nodes show normal fatty hilus, normal cortical thickness, and no cystic change or calcification. No abnormal color flow. The largest nodes are as follows: Level 1B: 0.5 x 0.6 x 0.6 cm. Prior: 0.4 x 0.4 x 0.4 cm. Normal deonte architecture. Level 1B: 0.9 x 0.5 x 1.3 cm. Prior: 1.0 x 1.2 x 0.4 cm. Normal deonte architecture. Level 3: 3.7 x 0.7 x 1.6 cm. Prior: Not seen. Normal deonte architecture. LEFT NECK SOFT TISSUES: Scattered architecturally normal nodes are present. The nodes show normal fatty hilus, normal cortical thickness, and no cystic change or calcification. No abnormal color flow. The largest nodes are as follows: Level 1B: 0.7 x 0.8 x 0.7 cm. Prior: 0.9 x 0.9 x 0.8 cm. Normal deonte architecture. Level 2: 0.8 x 0.7 x 1.1 cm. Prior: 0.9 x 0.9 x 0.8 cm. Normal deonte architecture. Level 2: 1.7 x 0.7 x 1.1 cm. Prior: 1.7 x 1.1 x 0.7 cm. There is focal cortical thickening to 4 mm. Level 2: 1.5 x 0.4 x 0.7 cm. Prior: 1.2 x 1.1 x 0.7 cm. Normal deonte architecture. Prior thyroidectomy. Within the left thyroid bed, a 1.0 x 0.3 x 0.3 cm soft tissue density is seen. This was seen on the ultrasound dated 10/22/2021, measuring 1.0 x 0.5 x 0.3 cm . No cystic or solid nodules demonstrated in the thyroid bed. 02/08/2023 RIGHT NECK SOFT TISSUES: Scattered architecturally normal nodes are present. The nodes show normal fatty hilus, normal cortical thickness, and no cystic change or calcification. No abnormal color flow. The largest nodes are as follows: Level 1B: 1.2 x 0.4 x 0.5 cm. Prior: 1.2 x 0.9 x 0.5 cm. Normal deonte architecture. Level 3: 1.1 x 0.4 x 0.4 cm. Prior: 2.7 x 1.6 x 0.7 cm. Normal deonte architecture. Level 4: 1.1 x 0.4 x 0.5 cm. Prior: Not seen. There are irregular margins. Level 5A: 0.7 x 0.2 x 0.2 cm. Prior: Not seen. Normal deonte architecture. Level 5A: 0.7 x 0.2 x 0.2 cm. Prior: Not seen. Normal deonte architecture. LEFT NECK SOFT TISSUES: Scattered architecturally normal nodes are present. The nodes show normal fatty hilus, normal cortical thickness, and no cystic change or calcification. No abnormal color flow. The largest nodes are as follows: Level 1B: 0.7 x 0.8 x 0.7 cm. Prior: 0.7 x 0.8 x 0.7 cm. Normal deonte architecture. Level 1B: 1.9 x 0.9 x 1.9 cm. Prior: Newly seen. There is focal cortical thickening. Level 2: 0.8 x 0.7 x 1.1 cm. Prior: 0.9 x 0.6 x 0.6 cm. Normal deonte architecture. Level 5A: 0.6 x 0.4 x 0.6 cm. Prior: Newly seen. Normal deonte architecture. Level 5B: 0.9 x 0.1 x 0.1 cm. Prior: Newly seen. Normal deonte architecture. US/US soft tiss head and/or neck IMPRESSION: 1. Question residual left thyroid tissue again seen measuring 1.0 x 0.3 x 0.3 cm. The interim stability from 10/22/2021 is reassuring. This could be further evaluated with contrast-enhanced CT, if clinically indicated. 2. Multiple bilateral cervical lymph nod es are seen, as detailed. The most concerning of these is a new 1.9 cm in transverse diameter lymph node with focal cortical thickening seen at left level 1B. Further work-up may be indicated. Laboratory Tests 08/03/22 08/03/22 11/02/22 09:17 09:17 Unknown TSH 34.12 H 16.25 H Thyroglobulin 0.1 H Thyroglobulin Anti body <1 PFSH Medical History Abnormal thyroid biopsy Diabetes History of thyroid cancer Non-toxic multinodular goiter Postoperative hypothyroidism hemorrhage Vitamin D deficiency Surgical History History of hysterectomy Hx of colonoscopy Hx of thyroidectomy Family History Father No problems noted. 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 There is no cervical adenopathy palpated Assessment & Plan Assessment & Plan (1) Thyroid cancer: Code(s): C73 - Malignant neoplasm of thyroid gland Plan: This is a 47-year-old female with a history of 3.0 cm focus of follicular carcinoma within the R lobe, and a 0.6 cm focus of Follicular variant of PTC within the left lobe. There was no extrathyroidal extension. No angioinvasion. No lymphatic invasion, and margins were uninvolved. 0 lymph nodes were examined. This was pT2. Status post total thyroidectomy with iodine 131 ablation 30 mCi.Repeat WBS which revealed persistent focus of increased uptake in the thyroid bed to the R of midline. There was no CT correlate. There is questionable residual left thyroid tissue as well as possible abnormal lymph nodes. However Tg is undetectable Plan is to talk to the patient about sending her for 2nd opinion to Dr. Victoria Lee at [facility] will perform her own neck ultrasound and biopsy any abnormal lymph nodes. This summer reassuring that thyroglobulin is undetected. Would keep her TSH on low side of normal and will reassess TSH in 6 weeks time on 137 mcg levothyroxine Orders: Referrals Endocrinology Referral C73 - Malignant neoplasm of thyroid gland Coding Level of Care Code Est Pt Level 3 (73673) Diagnoses Thyroid cancer C73
== END 2023-02-16 13:33 | disposition home or self-care (01) ==
PROVIDERS: PCP Internal Medicine; Visit Provider Internal Medicine Endocrinology, Diabetes & Metabolism
DX: C73 Malignant neoplasm of thyroid gland (principal)
CPT/HCPCS: 99213

== ENCOUNTER → 2023-02-16 12:40 | Outpatient (BNVA) | payer OTHER, SELFPAY | PROVIDERS: PCP Internal Medicine; Visit Provider Internal Medicine Endocrinology, Diabetes & Metabolism | DX: C73 Malignant neoplasm of thyroid gland (principal) | CPT/HCPCS: 99212 ==

== ENCOUNTER 2023-03-03 13:23 | Outpatient (AMB) | payer OTHER, SELFPAY ==
--- NOTE | 2023-03-03 13:26 | MHC.OFFVIS ---
Intake Vital Signs 03/03/23 13:28 Height 5 ft 4 in Weight 191 lb BMI 32.8 BP 103/53 L Blood Pressure Location Rt brachial Position Sitting Pulse 71 Intake Visit Reasons: Hemorrhoids Intake Note: This patient presents for an assessment for hemorrhoids. Patient c/o; reports bleeding with bowel movements, reports constipation, reports straining with bowel movements, reports rectal pain, reports using OTC cream which are not effective. 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 Accompanied by: Other Relationship Allergies No Known Drug Allergies Allergy (Verified 03/03/23 13:37) None metformin Adverse Reaction (Intermediate, Verified 03/03/23 13:32) Diarrhea (adverse reaction but is taking metformin) Medication List - Last Reconciled 03/03/23 by Ulises Jack MD alcohol swabs pad topical BID bisacodyl (Dulcolax (bisacodyl)) 10 mg (2 x 5 mg) PO ONCE 1 day cholecalciferol (vitamin D3) 50 mcg PO DAILY 30 days glipizide ER 10 mg PO DAILY glipizide ER 2.5 mg PO DAILY insulin glargine (Lantus Solostar U-100 Insulin) 11 units subcut QPM levothyroxine 137 mcg PO DAILY metformin 1,000 mg PO BID pen needle, diabetic As directed pioglitazone 1 tab PO DAILY HPI Hemorrhoids HPI Details 47 year female referred for hemorrhoids. She says that she started to have hemorrhoid issues after she was about 10 years ago. Since that time, she would notice periodic bleeding as well as pain and swelling of her hemorrhoids. Over the years, the seemed to have been worsening. She says that each time she has a bowel movement, she would notice a lot of bleeding which bothers her. She says that these hemorrhoids would frequently swell up as well. She denies being constipated. She does take Metamucil and Dulcolax every day. She does state that she had hemorrhoid surgery about 5 years ago in [place]. [facility] Medical History (Updated 03/03/23 @ 13:47 by Ulises Jack MD) Bleeding hemorrhoids hemorrhage History of thyroid cancer Vitamin D deficiency Postoperative hypothyroidism Abnormal thyroid biopsy Non-toxic multinodular goiter Diabetes Surgical History Hx of colonoscopy Hx of thyroidectomy History of hysterectomy Family History Father No problems noted. 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 Review of Systems Const Denies chills and Denies fever(s) Card Denies chest pain, Denies dyspnea and Denies dyspnea on exertion Resp Denies cough, Denies dyspnea and Denies dyspnea on exertion GI Reports hematochezia and Denies change in bowel habits Denies hematuria Musc Denies back pain and Denies limited range of motion Neuro Denies focal weakness and Denies convulsions Psych Denies depression and Denies mood swings Physical Exam Const General: comfortable and no acute distress Orientation/consciousness: patient oriented x3 Neck Neck: Yes no lymphadenopathy Resp Auscultation: clear to auscultation bilaterally Cardio Rhythm: regular rhythm GI Other: rectal exam shows large hemorrhoidal columns, mix of external with prolapse of internal component on both the left and right side Palpation (GI): Soft to palpation, nontender and no guarding Neuro General: patient oriented x3 Office Procedures Anoscopy She was in randall-knife position. The anoscope was gently inserted. A full examination of the entire anal canal was done. There was note of 3 large hemorrhoidal columns, mix of internal external, anterior, posterior as well as on the right side. No other lesions. There was no bleeding. There was no fissure or induration. She has good sphincter tone. [id number] Assessment & Plan Assessment & Plan (1) Bleeding hemorrhoids: Code(s): K64.9 - Unspecified hemorrhoids Plan: She has significant bleeding as well as frequent swelling of her hemorrhoids. She wants to proceed with hemorrhoidectomy. I explained to the technique of exam under anesthesia, hemorrhoidectomy. I reviewed the risks including but not limited to bleeding, infections, postop pain, as well as the benefits and alternatives. I explained to her what to expect postoperatively. She understands and wants to proceed . She has large hemorrhoidal columns. I also told her therefore that we may not be able to remove all hemorrhoidal columns in one setting due to the risk of stenosis. Coding Level of Care Code New Pt Level 3 (18990) Diagnoses Bleeding hemorrhoids K64.9 CPT Codes Details - CPT: 29395-[id number] ([id number])
[2023-03-03 13:28] VITALS: BP 103/53; PULSE 71; BMI 32.8
== END 2023-03-03 13:52 | disposition home or self-care (01) ==
PROVIDERS: PCP Internal Medicine; Referring Provider Internal Medicine; Visit Provider Surgery
DX: K64.9 Unspecified hemorrhoids (principal)
CPT/HCPCS: 46600; 99203

== ENCOUNTER → 2023-03-03 13:23 | Outpatient (BNVA) | payer OTHER, SELFPAY | PROVIDERS: PCP Internal Medicine; Referring Provider Internal Medicine; Visit Provider Surgery | DX: K64.9 Unspecified hemorrhoids (principal) | CPT/HCPCS: 46600; 99202 ==

== ENCOUNTER 2023-04-01 08:02 | Day surgery (SDC) | payer OTHER, SELFPAY ==
--- NOTE | 2023-03-30 14:06 | HO.ANESPROP2 ---
HPI - Anesthesia Eval Consult details Narrative: 47yo F for EUA,Hemorrhoidectomy PMFSH Active Problems Active Problems: All Active Problems (Updated 03/03/23 @ 13:47 by Ulises Jack MD) Bleeding hemorrhoids (Acute) Dupuytren's disease of palm with nodules without contracture (Acute) Bilateral hand numbness (Acute) Trigger finger, left middle finger (Acute) Trigger finger, right index finger (Acute) Thyroid cancer (Acute) History of thyroid cancer (Acute) Vitamin D deficiency (Acute) Postoperative hypothyroidism (Acute) Abnormal thyroid biopsy (Acute) Non-toxic multinodular goiter (Acute) Past Medical History Medical History (Updated 03/03/23 @ 13:47 by Ulises Jack MD) Bleeding hemorrhoids hemorrhage History of thyroid cancer Vitamin D deficiency Postoperative hypothyroidism Abnormal thyroid biopsy Non-toxic multinodular goiter Diabetes Family History Family History Father No problems noted. 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 Meds Allergies Allergy/AdvReac Type Severity Reaction Status Date / Time metformin AdvReac Intermediate Diarrhea Verified 03/03/23 13:32 (adverse reaction but is taking metformin) Home Medications Medication Instructions Recorded Confirmed Last Taken Type alcohol swabs pad topical BID 09/11/20 03/03/23 Unknown History glipizide 10 mg tablet, extended 10 mg PO DAILY 09/11/20 03/23/23 Unknown History release 24 hr pen needle, diabetic 32 gauge x #50 ea 09/11/20 03/03/23 Unknown History glipizide 2.5 mg tablet, extended 2.5 mg PO DAILY 03/30/21 03/23/23 Unknown History release 24 hr insulin glargine 100 unit/mL (3 11 unit subcut QPM 03/30/21 03/23/23 Unknown History mL) subcutaneous pen (Lantus Solostar U-100 Insulin) metformin 1,000 mg tablet 1,000 mg PO BID 03/30/21 03/23/23 Unknown History pioglitazone 15 mg tablet 1 tab PO DAILY 08/20/21 03/23/23 Unknown History Assessment and Plan Assessment Anesthesia Assessment: Chart Reviewed Final Anesthetic Review Family History of Problems with Anesthesia: No History of Problems with Anesthesia: No
[2023-04-01] VITALS (16 sets, daily range): BP systolic 133–158; BP diastolic 76–93; PULSE 70–92; RESP 12–18; TEMP 36.1–36.5; O2SAT 94–100; BMI 32.0
--- NOTE | 2023-04-01 08:27 | HO.ANESPROP2 ---
[facility] Active Problems Active Problems: All Active Problems (Updated 03/03/23 @ 13:47 by Ulises Jack MD) Bleeding hemorrhoids (Acute) Dupuytren's disease of palm with nodules without contracture (Acute) Bilateral hand numbness (Acute) Trigger finger, left middle finger (Acute) Trigger finger, right index finger (Acute) Thyroid cancer (Acute) History of thyroid cancer (Acute) Vitamin D deficiency (Acute) Postoperative hypothyroidism (Acute) Abnormal thyroid biopsy (Acute) Non-toxic multinodular goiter (Acute) Past Medical History Medical History (Updated 03/03/23 @ 13:47 by Ulises Jack MD) Bleeding hemorrhoids hemorrhage History of thyroid cancer Vitamin D deficiency Postoperative hypothyroidism Abnormal thyroid biopsy Non-toxic multinodular goiter Diabetes Functional capacity: independent ambulation Patient : No Family History Family History Father No problems noted. 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 Meds Allergies Allergy/AdvReac Type Severity Reaction Status Date / Time No Known Allergies Allergy Verified 04/01/23 09:49 Home Medications Medication Instructions Recorded Confirmed Last Taken Type alcohol swabs pad topical BID 09/11/20 03/03/23 Unknown History glipizide 10 mg tablet, extended 10 mg PO DAILY 09/11/20 03/23/23 Unknown History release 24 hr pen needle, diabetic 32 gauge x #50 ea 09/11/20 03/03/23 Unknown History glipizide 2.5 mg tablet, extended 2.5 mg PO DAILY 03/30/21 03/23/23 Unknown History release 24 hr insulin glargine 100 unit/mL (3 11 unit subcut QPM 03/30/21 03/23/23 Unknown History mL) subcutaneous pen (Lantus Solostar U-100 Insulin) metformin 1,000 mg tablet 1,000 mg PO BID 03/30/21 03/23/23 Unknown History pioglitazone 15 mg tablet 1 tab PO DAILY 08/20/21 03/23/23 Unknown History Exam Airway Mallampati Class: III TM Dist: >3cm Neck ROM: Full Heart: RRR Lungs: CTA Assessment and Plan Assessment Anesthesia Assessment: Anesthesia Plan Discussed Final Anesthetic Review Family History of Problems with Anesthesia: No History of Problems with Anesthesia: No NPO: Yes ASA Class: III Final Preanesthetic Review: Meds/Allgs Chart Reviewed, Consent Obtained/Reviewed and Anes Risks/Benef Reviewed Patient Risk: Intermediate Procedure Risk: Low Anesthetic Plan Anesthetic Plan: GA Disposition: Standard PACU
[2023-04-01 09:47] LABS: Glucose, Whole Blood 269 mg/dL (60-115)
[2023-04-01] MEDS: Lactated Ringers 1,000 ML 100 ML IVCONT (10:01)
--- NOTE | 2023-04-01 10:05 | MHC.SHP ---
Pre-Procedural Eval Section A Date of Service: 04/01/23 The patient is an INPATIENT: No Changes since office visit: No Cold of Flu in the past 2 weeks, No New Medical Problems, No Changes in Medication and No Patient answered all questions The History & Physical has been completed within 30 days and I have reviewed it.: Yes Section B Chief Complaint: Unspecified hemorrhoids Allergies: Allergies Allergy/AdvReac Type Severity Reaction Status Date / Time No Known Allergies Allergy Verified 04/01/23 09:49 Plan I have reviewed the history and physical and performed a pertinent physical examination on my patient. No changes have occurred unless specified. Time Spent With Patient Time: Total time managing care of this patient today ____ minutes.
[2023-04-01] MEDS: Insulin Regular, Human 100 UNIT/ML 3 ML VIAL IVPUSH (10:16)
--- NOTE | 2023-04-01 11:43 | W.PM.OPN ---
Operative Note Operative Note Date of Service: 04/01/23 Narrative: preop diagnosis: Bleeding hemorrhoids Postop diagnosis: Bleeding hemorrhoids, internal external Procedure: Exam under anesthesia, had ectomy x2 columns Surgeon: Ulises Jack MD the patient is a 47 year female with a long history of bleeding and prolapse of hemorrhoids. She wanted to proceed with hemorrhoidectomy. She understood the technique of the procedure as well as the risks, benefits, and alternatives She was brought to the operating room. She was placed in prone randall-knife position under general seizure via endotracheal tube. The buttocks were retracted with wide tape laterally. The perianal area was prepped day. A sterile fashion. A surgical time-out was done. The patient received Cefotan 2 g IV preoperatively Examination of the anal orifice revealed bulky hemorrhoidal columns on the left and right side and another 1 more posteriorly. I inserted abuse better tractor. I examined the anal canal circumferentially. Examination of the anal canal revealed this mixed hemorrhoidal columns on both sides as well as posteriorly. There were no other lesions I applied a Acosta grasper at the hemorrhoidal column on the left. I made a [id number] stitch at the pedicle using a chromic 3-0. I made an incision around this hemorrhoidal column the perianal skin with a blade 15. I excised this hemorrhoidal column above the plane the sphincters along this incision using Metzenbaum scissors. I closed this incision with a running chromic 3-0 stitch. Additional hemostatic sutures with [id number] chromic 3-0 were placed The same procedure was duplicated on the bulky hemorrhoidal column the right. This was retracted with a Acosta grasper. I made a figure of 8 stitch at the pedicle. I made an incision around this column to the perianal skin using blade 15. I excised this above the plane of sphincters using scissors. I closed the incision with full-thickness nylon chromic 3-0 stitch with additional [id number] hemostatic sutures placed I left the posterior hemorrhoidal column in place because of the risk of stenosis I observed for was stasis. Once hemostasis was confirmed, I infiltrated the perianal area with Marcaine 0.5% for postop low TALIB The procedure was completed The patient tolerated procedure well. There were no immediate complications. Initial final counts of sponges and instruments were correct. Estimated blood loss about 25 cc The patient was extubated without difficulty and transferred to the recovery room with stable vital signs.
[2023-04-01 11:58] LABS: Glucose, Whole Blood 172 mg/dL (60-115)
--- NOTE | 2023-04-01 11:59 | HO.POSTANES ---
Post Anesthesia Evaluation Post Anesthesia Evaluation Date of Service: 04/01/23 Vital Signs: Vital Signs Temp Pulse Resp BP Pulse Ox O2 Del Method 04/01/23 09:59 97.7 F 70 16 136/76 95 Room Air Anesthesia: General Endotracheal-GETA Mental Status: Awake Pain Control: Satisfactory Nausea/Vomiting: None Hydration: Adequate Anesthesia-Related Issues: No Anes. Related Issues
[2023-04-01] MEDS: ondansetron HCL 4 MG/2 ML VIAL IVPUSH (12:39)
[2023-04-01] MEDS: oxyCODONE HCl Immed Release 5 MG TABLET PO (13:07)
[2023-04-01] MEDS: fentaNYL citrate/PF 100 MCG/2 ML VIAL 25 MCG IVPUSH ×2 (13:10→13:20)
== END 2023-04-01 15:00 | disposition home or self-care (01) ==
PROVIDERS: Visit Provider Surgery
PROC: (CPT 46260; principal; 2023-04-01 10:40)
DX: K64.8 Other hemorrhoids (principal); K64.4 Residual hemorrhoidal skin tags; E89.0 Postprocedural hypothyroidism; Z85.850 Personal history of malignant neoplasm of thyroid; E04.2 Nontoxic multinodular goiter; E55.9 Vitamin D deficiency, unspecified; E11.9 Type 2 diabetes mellitus without complications; Z79.4 Long term (current) use of insulin; Z79.84 Long term (current) use of oral hypoglycemic drugs
CPT/HCPCS: 46260; 82947; 88304; J0665; J1100; J2250; J2405; J2550; J2704; J3010

== ENCOUNTER → 2023-04-01 08:02 | Outpatient (BNV) | payer OTHER, SELFPAY | PROVIDERS: Visit Provider Surgery | DX: K64.8 Other hemorrhoids (principal) | CPT/HCPCS: 46260 ==

== ENCOUNTER 2023-04-14 10:08 | Outpatient (AMB) | payer OTHER, SELFPAY ==
--- NOTE | 2023-04-14 10:09 | MHC.OFFVIS ---
Intake Vital Signs 04/14/23 10:21 Weight 176 lb BP 127/77 Blood Pressure Location Rt brachial Position Sitting Pulse 92 Intake Visit Reasons: S/p hemorrhoidectomy Intake Note: This patient presents for a post-op assessment status post hemorrhoidectomy. Patient c/o; reports foul odor, reports pain. 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 She tolerated procedure well. He had complained of significant constipation for several days. She was prescribed stool softeners but she finally had good BMs after doing Fleet enemas. She still has some pain on the hemorrhoidectomy site although this seems to be improving. [facility] Medical History Bleeding hemorrhoids hemorrhage History of thyroid cancer Vitamin D deficiency Postoperative hypothyroidism Abnormal thyroid biopsy Non-toxic multinodular goiter Diabetes Surgical History History of hemorrhoidectomy Hx of colonoscopy Hx of thyroidectomy History of hysterectomy Family History Father No problems noted. 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 Her incisions are actually healing well. Her constipation postop have improved I will prescribe her Calmoseptine for her perianal skin irritation. I have instructed her to continue to do warm soaks. I will see her for another wound check in about a month. Coding Level of Care Code Global (62742) Diagnoses Bleeding hemorrhoids K64.9
[2023-04-14 10:21] VITALS: BP 127/77; PULSE 92
== END 2023-04-14 10:24 | disposition home or self-care (01) ==
PROVIDERS: Visit Provider Surgery
DX: K64.9 Unspecified hemorrhoids (principal)
CPT/HCPCS: 99024

== ENCOUNTER → 2023-04-14 10:08 | Outpatient (BNVA) | payer OTHER, SELFPAY | PROVIDERS: Visit Provider Surgery | DX: Z48.815 Encounter for surgical aftercare following surgery on the digestive system (principal); Z98.890 Other specified postprocedural states | CPT/HCPCS: 99212 ==

== ENCOUNTER 2023-05-12 10:45 | Outpatient (AMB) | payer OTHER, SELFPAY ==
--- NOTE | 2023-05-12 11:03 | MHC.OFFVIS ---
Intake Vital Signs 05/12/23 11:08 Weight 179 lb BP 130/77 Blood Pressure Location Rt brachial Position Sitting Pulse 73 Intake Visit Reasons: S/p hemorrhoidectomy Intake Note: This patient presents for a follow-up post-up assessment status post EUA, hemorrhoidectomy x2 columns. Patient c/o; reports constipation, reports straining with bowel movements, reports notices blood in stool when strains with bowel movements. Syrup Filterer Required: No Accompanied by: Self / Same As Patient Allergies No Known Allergies Allergy (Verified 05/12/23 11:09) HPI S/p hemorrhoidectomy HPI Details She is here for follow-up after hemorrhoidectomy last March,. I had seen her last April 14 for postop visit and she had complaints with regards to pruritus. I had prescribed her Calmoseptine at that time. She says that this has helped. Her itching has improved significantly. She denies any significant pain. [facility] Medical History Bleeding hemorrhoids hemorrhage History of thyroid cancer Vitamin D deficiency Postoperative hypothyroidism Abnormal thyroid biopsy Non-toxic multinodular goiter Diabetes Surgical History History of hemorrhoidectomy (~04/01/23) Hx of colonoscopy Hx of thyroidectomy History of hysterectomy Family History Father No problems noted. 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 She says that her bleeding has improved significantly. Her pruritus seems to be much better controlled I advised her to avoid any straining and constipation as much as possible. She seems to be doing much better after hemorrhoidectomy. She can therefore follow up on a p.r.n. basis. Coding Level of Care Code Global (67658) Diagnoses Bleeding hemorrhoids K64.9
[2023-05-12 11:08] VITALS: BP 130/77; PULSE 73
== END 2023-05-12 11:17 | disposition home or self-care (01) ==
PROVIDERS: Visit Provider Surgery
DX: K64.9 Unspecified hemorrhoids (principal)
CPT/HCPCS: 99024

== ENCOUNTER → 2023-05-12 10:45 | Outpatient (BNVA) | payer OTHER, SELFPAY | PROVIDERS: Visit Provider Surgery | DX: K64.9 Unspecified hemorrhoids (principal) | CPT/HCPCS: 99212 ==

== ENCOUNTER 2023-06-14 11:06 | Outpatient (REF) | payer OTHER, SELFPAY | END 2023-06-14 11:07 | disposition home or self-care (01) | LOC: HO.MAMMO 11:06 | PROVIDERS: PCP Internal Medicine; Visit Provider Internal Medicine | DX: Z12.31 Encounter for screening mammogram for malignant neoplasm of breast (principal) | CPT/HCPCS: 77063; 77067 ==

== ENCOUNTER → 2023-06-14 11:15 | Outpatient (BNV) | payer OTHER, SELFPAY | PROVIDERS: PCP Internal Medicine; Visit Provider Radiology Diagnostic Radiology | DX: Z12.31 Encounter for screening mammogram for malignant neoplasm of breast (principal) | CPT/HCPCS: 77063; 77067 ==

== ENCOUNTER 2023-07-27 09:27 | Outpatient (REF) | payer OTHER, SELFPAY ==
[2023-07-27 11:25] LABS: Thyroid Stimulating Hormone 7.34 uIU/mL (0.32-4.0)
== END 2023-07-27 09:28 | disposition home or self-care (01) ==
LOC: HO.10HDL 09:27
PROVIDERS: Visit Provider Internal Medicine Endocrinology, Diabetes & Metabolism
DX: Z85.850 Personal history of malignant neoplasm of thyroid (principal)
CPT/HCPCS: 36415; 84439; 84443

== ENCOUNTER 2023-08-16 08:42 | Outpatient (REF) | payer OTHER, SELFPAY ==
[2023-08-16 12:24] LABS: Free T4 (Free Thyroxine) 1.08 ng/dL (0.71-1.85); Thyroid Stimulating Hormone 1.38 uIU/mL (0.32-4.0)
[2023-08-19 06:09] LABS: Thyroglobulin Antibody <1 IU/mL (<=1); Thyroglobulin Level <0.1 ng/mL
== END 2023-08-16 08:43 | disposition home or self-care (01) ==
LOC: HO.10HDL 08:42
PROVIDERS: Visit Provider Internal Medicine Endocrinology, Diabetes & Metabolism
DX: Z85.850 Personal history of malignant neoplasm of thyroid (principal)
CPT/HCPCS: 36415; 84432; 84439; 84443; 86800

== ENCOUNTER 2023-08-18 12:35 | Outpatient (AMB) | payer OTHER, SELFPAY ==
--- NOTE | 2023-08-18 12:54 | MHC.OFFVIS ---
Vital Signs 08/18/23 12:55 Height 5 ft 4 in Weight 185 lb 3.013 oz BMI 31.8 BP 118/72 Blood Pressure Location Lt brachial Position Sitting Pulse 75 Pulse Source Pulse Oximeter Intake Visit Reasons: F/U Thyroid Cancer-confirmed Intake Note: Patient presents today for Thyroid cancer follow up. Branch Specialist Required: No Accompanied by: Spouse Allergies No Known Allergies Allergy (Verified 08/18/23 13:05) HPI Comments Details: 48 YO Female who is seen in F/U for Thyroid Cancer. She was previously followed by Dr. العراقي. The patient last saw Dr. Parker on 11/08/2022 She had fine-needle aspiration on 09/25/2020 of isthmic nodule, right mid pole nodule, both were benign follicular nodules [place] category 2. She also had a biopsy of right lower pole nodule, cytology was consistent with atypia of undetermined significance, [place] category 3. Afirma is suspicious for malignancy.? The risk of malignancy is 50%. She underwent a total thyroidectomy by Dr. Mendez 01/26/2021. 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 There was no extrathyroidal extension. No angioinvasion. No lymphatic invasion, and margins were uninvolved. 0 lymph nodes were examined. This was pT2pNx. Postoperatively she was started on levothryoxine, now taking 137 mcg PO daily. She then underwent I131 ablation with 29.9 mCi I-131 08/05/2021. Labs 08/04/2021 TSH was 27.69 at that time, with TG 1.3, TGAB <1. Post-treatment WBS revealed faint uptake in the left thyroid bed, and avid uptake superior, which on SPECT-CT localizes to the thyroid cartilage. This finding was thought to be nonspecific and may indicate residual thyroid tissue, vs lymph node vs ectopic thyroid. She then had US head and neck 10/22/2021 that revealed a question of residual tissue within the L thyroid bed measuring 1 cm. She was asked to repeat her thyroid US in 3 months but failed to do so. Labs 03/08/2022 with TSH 0.52, TG <0.1 and TGAB <1. US was repeated 05/26/2022 with no significant abnormalities found, though 1 lymph node did reveal cortical thickening. She then underwent a repeat WBS 08/06/2022, which was completed via thyroid hormone withdrawal. Labs 08/03/2022 TSH 34.12, TG 0.1 and TG antibodies negative. WBS 08/06/2022 revealed a faint focus of uptake to the right of midline, decreased from prior. This was located anterolateral to the thyroid cartilage. There was no CT correlate on SPECT CT. This was thought to likely represent trace reisdual tissue along the thyroglossal duct. She does report feeling well today, and has no complaints. US Head and Neck: 05/26/2022 THYROID BED: Prior thyroidectomy. No residual thyroid tissue demonstrated in the thyroid bed. No cystic or solid nodules demonstrated in the thyroid bed. RIGHT NECK SOFT TISSUES: Scattered architecturally normal nodes are present. The nodes show normal fatty hilus, normal cortical thickness, and no cystic change or calcification. No abnormal color flow. The largest nodes are as follows: Level 1B: 0.5 x 0.6 x 0.6 cm. Prior: 0.4 x 0.4 x 0.4 cm. Normal deonte architecture. Level 1B: 0.9 x 0.5 x 1.3 cm. Prior: 1.0 x 1.2 x 0.4 cm. Normal deonte architecture. Level 3: 3.7 x 0.7 x 1.6 cm. Prior: Not seen. Normal deonte architecture. LEFT NECK SOFT TISSUES: Scattered architecturally normal nodes are present. The nodes show normal fatty hilus, normal cortical thickness, and no cystic change or calcification. No abnormal color flow. The largest nodes are as follows: Level 1B: 0.7 x 0.8 x 0.7 cm. Prior: 0.9 x 0.9 x 0.8 cm. Normal deonte architecture. Level 2: 0.8 x 0.7 x 1.1 cm. Prior: 0.9 x 0.9 x 0.8 cm. Normal deonte architecture. Level 2: 1.7 x 0.7 x 1.1 cm. Prior: 1.7 x 1.1 x 0.7 cm. There is focal cortical thickening to 4 mm. Level 2: 1.5 x 0.4 x 0.7 cm. Prior: 1.2 x 1.1 x 0.7 cm. Normal deonte architecture. Prior thyroidectomy. Within the left thyroid bed, a 1.0 x 0.3 x 0.3 cm soft tissue density is seen. This was seen on the ultrasound dated 10/22/2021, measuring 1.0 x 0.5 x 0.3 cm. No cystic or solid nodules demonstrated in the thyroid bed. 02/08/2023 RIGHT NECK SOFT TISSUES: Scattered architecturally normal nodes are present. The nodes show normal fatty hilus, normal cortical thickness, and no cystic change or calcification. No abnormal color flow. The largest nodes are as follows: Level 1B: 1.2 x 0.4 x 0.5 cm. Prior: 1.2 x 0.9 x 0.5 cm. Normal deonte architecture. Level 3: 1.1 x 0.4 x 0.4 cm. Prior: 2.7 x 1.6 x 0.7 cm. Normal deonte architecture. Level 4: 1.1 x 0.4 x 0.5 cm. Prior: Not seen. There are irregular margins. Level 5A: 0.7 x 0.2 x 0.2 cm. Prior: Not seen. Normal deonte architecture. Level 5A: 0.7 x 0.2 x 0.2 cm. Prior: Not seen. Normal deonte architecture. LEFT NECK SOFT TISSUES: Scattered architecturally normal nodes are present. The nodes show normal fatty hilus, normal cortical thickness, and no cystic change or calcification. No abnormal color flow. The largest nodes are as follows: Level 1B: 0.7 x 0.8 x 0.7 cm. Prior: 0.7 x 0.8 x 0.7 cm. Normal deonte architecture. Level 1B: 1.9 x 0.9 x 1.9 cm. Prior: Newly seen. There is focal cortical thickening. Level 2: 0.8 x 0.7 x 1.1 cm. Prior: 0.9 x 0.6 x 0.6 cm. Normal deonte architecture. Level 5A: 0.6 x 0.4 x 0.6 cm. Prior: Newly seen. Normal deonte architecture. Level 5B: 0.9 x 0.1 x 0.1 cm. Prior: Newly seen. Normal deonte architecture. US/US soft tiss head and/or neck IMPRESSION: 1. Question residual left thyroid tissue again seen measuring 1.0 x 0.3 x 0.3 cm. The interim stability from 10/22/2021 is reassuring. This could be further evaluated with contrast-enhanced CT, if clinically indicated. 2. Multiple bilateral cervical lymph nodes are seen, as detailed. The most concerning of these is a new 1.9 cm in transverse diameter lymph node with focal cortical thickening seen at left level 1B. Further work-up may be indicated. Laboratory Tests 08/03/22 08/03/22 11/02/22 09:17 09:17 Unknown TSH 34.12 H 16.25 H Thyroglobulin 0.1 H Thyroglobulin Antibody <1 Currently on levothyroxine 137 mcg. No symptoms of hypothyroidism or hyperthyroidism. Has abnormal lymph nodes on ultrasound [facility] Medical History Bleeding hemorrhoids hemorrhage History of thyroid cancer Vitamin D deficiency Postoperative hypothyroidism Abnormal thyroid biopsy Non-toxic multinodular goiter Diabetes Surgical History History of hemorrhoidectomy (~04/01/23) Hx of colonoscopy Hx of thyroidectomy History of hysterectomy Family History Father No problems noted. 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 There was no extrathyroidal extension. No angioinvasion. No lymphatic invasion, and margins were uninvolved. 0 lymph nodes were examined. This was pT2. Status post total thyroidectomy with iodine 131 ablation 30 mCi.Repeat WBS which revealed persistent focus of increased uptake in the thyroid bed to the R of midline. There was no CT correlate. There is questionable residual left thyroid tissue as well as possible abnormal lymph nodes. However Tg is undetectable. She is clinically and biochemically euthyroid on levothyroxine 137 mcg. Thyroglobulin level is pending Plan is to talk to the patient about sending her for 2nd opinion to Dr. Victoria Lee at [facility] will perform her own neck ultrasound and biopsy any abnormal lymph nodes. It is somewhat reassuring that thyroglobulin is undetected. We did talk about the necessity of further evaluating these abnormal lymph nodes and she is trying to arrange for insurance coverage to get a 2nd opinion with . Coding Level of Care Code Est Pt Level 3 (91112) Diagnoses Thyroid cancer C73
[2023-08-18 12:55] VITALS: BP 118/72; PULSE 75; BMI 31.8
[2023-08-18 13:12] LABS: Glucose, Whole Blood 188 mg/dL (60-115)
== END 2023-08-18 13:19 | disposition home or self-care (01) ==
PROVIDERS: PCP Internal Medicine; Visit Provider Internal Medicine Endocrinology, Diabetes & Metabolism
DX: C73 Malignant neoplasm of thyroid gland (principal)
CPT/HCPCS: 99213

== ENCOUNTER → 2023-08-18 12:35 | Outpatient (BNVA) | payer OTHER, SELFPAY | PROVIDERS: PCP Internal Medicine; Visit Provider Internal Medicine Endocrinology, Diabetes & Metabolism | DX: C73 Malignant neoplasm of thyroid gland (principal); E11.9 Type 2 diabetes mellitus without complications | CPT/HCPCS: 82947; 99212 ==

== ENCOUNTER 2023-11-25 11:59 | Outpatient (REF) | payer OTHER, SELFPAY ==
[2023-11-25 13:34] LABS: Cholesterol 207 mg/dL (<200); HDL Cholesterol 58 mg/dL (>40); LDL Cholesterol Calculated 122 mg/dL (<100); Triglycerides 139 mg/dL (<150)
[2023-11-25 14:16] LABS: Reflex LDLD? No
[2023-11-25 14:42] LABS: Creatinine Urine 160.13 mg/dL; Microalbum/Creatinine Ratio Ur 11.2 ug/mg cr (<30)
== END 2023-11-25 12:00 | disposition home or self-care (01) ==
LOC: HO.HHCL 11:59
PROVIDERS: Visit Provider Internal Medicine
DX: E11.65 Type 2 diabetes mellitus with hyperglycemia (principal); Z79.4 Long term (current) use of insulin
CPT/HCPCS: 36415; 80061; 82043; 82570

== ENCOUNTER 2024-02-23 13:45 | Outpatient (AMB) | payer OTHER, SELFPAY ==
[2024-02-23 13:52] VITALS: BP 124/78; PULSE 70; BMI 33.5
--- NOTE | 2024-02-23 13:52 | A.OFFVIS_ITS ---
Vital Signs 3 02/23/24 13:52 Height 5 ft 4 in Weight 195 lb 5.273 oz BMI 33.5 BP 124/78 Blood Pressure Location Lt brachial Position Sitting Pulse 70 Pulse Source Pulse Oximeter Intake Visit Reasons: f/u thyroid cancer-conf Intake Note: Patient present today for thyroid cancer follow up visit. 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 Accompanied by: Spouse Allergies No Known Allergies Allergy (Verified 02/23/24 13:56) Medication List - Last Reconciled 02/23/24 by Rahel Keys MD alcohol swabs pad topical BID bisacodyl (Dulcolax (bisacodyl)) 10 mg (2 x 5 mg) PO ONCE 1 day cholecalciferol (vitamin D3) 50 mcg PO DAILY 30 days docusate sodium (Colace) 100 mg PO BID glipizide ER 10 mg PO DAILY glipizide ER 2.5 mg PO DAILY ibuprofen 600 mg PO Q6H PRN insulin glargine (Lantus Solostar U-100 Insulin) 11 units subcut QPM levothyroxine 137 mcg PO DAILY menthol-zinc oxide 0.44-20.6 % (Calmoseptine) 1 appl topical QID PRN metformin 1,000 mg PO BID pen needle, diabetic As directed pioglitazone 1 tab PO DAILY polyethylene glycol 3350 (Miralax) 17 grams PO DAILY HPI Comments Details: 48 YO Female who is seen in F/U for Thyroid Cancer status post total thyroidectomy in January 2021 with 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 She is currently classified as JAMA indeterminate response to therapy based on suspicious lymph nodes on ultrasound. HPI of thyroid cancer 09/25/2020 : FNA of isthmic nodule, right mid pole nodule, both were benign follicular nodules [place] category 2. She also had a biopsy of right lower pole nodule, cytology was consistent with atypia of undetermined significance, [place] category 3. Afirma is suspicious for malignancy.? The risk of malignancy is 50%. 01/26/2021: underwent a total thyroidectomy by Dr. Jabiev Official surgical path revealed a 3.0 cm focus of follicular carcinoma within the R lobe, and a 0.6 cm focus of Follicular variant of PTC within the left lobe. There was no extrathyroidal extension. No angioinvasion. No lymphatic invasion, and margins were uninvolved. 0 lymph nodes were examined. This was pT2pNx. Postoperatively she was started on levothryoxine. 08/05/2021: underwent I131 ablation with 29.9 mCi I-131 08/04/2021 : labs TSH was 27.69 at that time, with TG 1.3, TGAB <1. Post-treatment WBS revealed faint uptake in the left thyroid bed, and avid uptake superior, which on SPECT-CT localizes to the thyroid cartilage. This finding was thought to be nonspecific and may indicate residual thyroid tissue, vs lymph node vs ectopic thyroid. 10/22/2021: Ultrasound neck normal-appearing right-sided lymph nodes, on the left side, level 2, 1.7 cm of normal-appearing lymph node reported. Other normal-appearing lymph nodes noted. Residual thyroid tissue visualized in the left thyroid bed measuring 1 cm 03/08/2022 labs with TSH 0.52, TG <0.1 and TGAB <1. 05/26/2022: Ultrasound of the neck showed normal-appearing right-sided lymph nodes. One of them was enlarged up to 3.7 cm at level 3 not seen previously. However this has normal deonte architecture. Again on the left side normal- appearing lymph node seed but a abnormal lymph node at level 2 measuring 1.7 cm with focal cortical thickening noted. 08/06/2022: WBS , which was completed via thyroid hormone withdrawal. revealed a faint focus of uptake to the right of midline, decreased from prior. This was located anterolateral to the thyroid cartilage. There was no CT correlate on SPECT CT. This was thought to likely represent trace reisdual tissue along the thyroglossal duct. 08/03/2022 labs TSH 34.12, TG 0.1 and TG antibodies negative. 02/08/2023: Ultrasound of the neck showed normal right-sided lymph nodes. On the left side 1.9 cm lymph node this time labeled at level 1B noted with cortical thickening. Residual left thyroid tissue measuring 1 cm noted. Interval history Patient denies any compressive symptoms. She remains on levothyroxine 137 mcg daily but for the past 2 weeks she has been out of her refills. She has been feeling tired, fatigued, agitated. Sleep is disturbed. She is complaining of weight gain. Complaining of cold intolerance as well as constipation. Last set of blood work was from July 2023 when her TSH was 1.38, free T4 1.08, thyroglobulin less than 0.1, thyroglobulin antibody less than 1 Physical exam General: sitting comfortably in no acute distress HEENT: normocephalic/atraumatic, EOM intact, moist oral mucosa Neck: supple, symmetrical, no palpable masses , no dorsocervical or supraclavicular fat pads Cardiac: normal heart sounds Pulm: normal breath sounds B/L, no added breath sounds Abd: not distended, no tenderness Extremities: no edema, no signs of myxedema Neuro: AAO x3, Speech: normal, no facial droop, moving all 4 extremities Laboratory Tests 09/11/20 03/23/21 07/08/21 15:18 08:38 09:12 TSH 0.59 0.06 L 0.53 Free T4 Thyroglobulin 0.1 L 0.1 L Thyroglobulin Antibody <1 <1 <1 08/04/21 09/23/21 11/06/21 09:05 13:05 12:26 TSH 27.69 H 6.27 H 2.02 Free T4 1.23 Thyroglobulin 1.3 L 0.2 L <0.1 L Thyroglobulin Antibody <1 <1 <1 03/08/22 05/05/22 07/27/22 08:26 11:45 08:57 TSH 0.52 0.20 L 18.65 H Free T4 1.31 1.18 Thyroglobulin <0.1 L <0.1 0.1 H Thyroglobulin Antibody <1 <1 <1 08/03/22 11/02/22 02/08/23 09:17 Unknown 12:30 TSH 34.12 H 16.25 H 0.05 L Free T4 < 0.42 L 0.82 1.41 Thyroglobulin 0.1 H <0.1 Thyroglobulin Antibody <1 <1 07/27/23 08/16/23 09:30 08:45 TSH 7.34 H 1.38 Free T4 0.90 1.08 Thyroglobulin <0.1 Thyroglobulin Antibody <1 Imaging US SOFT TISSUE NECK 02/14 CLINICAL INFORMATION: Status post thyroidectomy for malignancy. COMPARISON: Prior ultrasound examinations, most recently 05/26/2022. TECHNIQUE: Ultrasound of the neck soft tissues is performed with high- frequency salter-scale imaging and color Doppler. FINDINGS: THYROID BED: Prior thyroidectomy. Within the left thyroid bed, a 1.0 x 0.3 x 0.3 cm soft tissue density is seen. This was seen on the ultrasound dated 10/22/2021, measuring 1.0 x 0.5 x 0.3 cm. No cystic or solid nodules demonstrated in the thyroid bed. RIGHT NECK SOFT TISSUES: Scattered architecturally normal nodes are present. The nodes show normal fatty hilus, normal cortical thickness, and no cystic change or calcification. No abnormal color flow. The largest nodes are as follows: Level 1B: 1.2 x 0.4 x 0.5 cm. Prior: 1.2 x 0.9 x 0.5 cm. Normal deonte architecture. Level 3: 1.1 x 0.4 x 0.4 cm. Prior: 2.7 x 1.6 x 0.7 cm. Normal deonte architecture. Level 4: 1.1 x 0.4 x 0.5 cm. Prior: Not seen. There are irregular margins. Level 5A: 0.7 x 0.2 x 0.2 cm. Prior: Not seen. Normal deonte architecture. Level 5A: 0.7 x 0.2 x 0.2 cm. Prior: Not seen. Normal deonte architecture. LEFT NECK SOFT TISSUES: Scattered architecturally normal nodes are present. The nodes show normal fatty hilus, normal cortical thickness, and no cystic change or calcification. No abnormal color flow. The largest nodes are as follows: Level 1B: 0.7 x 0.8 x 0.7 cm. Prior: 0.7 x 0.8 x 0.7 cm. Normal deonte architecture. Level 1B: 1.9 x 0.9 x 1.9 cm. Prior: Newly seen. There is focal cortical thickening. Level 2: 0.8 x 0.7 x 1.1 cm. Prior: 0.9 x 0.6 x 0.6 cm. Normal deonte architecture. Level 5A: 0.6 x 0.4 x 0.6 cm. Prior: Newly seen. Normal deonte architecture. Level 5B: 0.9 x 0.1 x 0.1 cm. Prior: Newly seen. Normal deonte architecture. US/US soft tiss head and/or neck IMPRESSION: 1. Question residual left thyroid tissue again seen measuring 1.0 x 0.3 x 0.3 cm. The interim stability from 10/22/2021 is reassuring. This could be further evaluated with contrast-enhanced CT, if clinically indicated. 2. Multiple bilateral cervical lymph nodes are seen, as detailed. The most concerning of these is a new 1.9 cm in transverse diameter lymph node with focal cortical thickening seen at left level 1B. Further work-up may be indicated. US Head and Neck: 05/26/2022 THYROID BED: Prior thyroidectomy. No residual thyroid tissue demonstrated in the thyroid bed. No cystic or solid nodules demonstrated in the thyroid bed. RIGHT NECK SOFT TISSUES: Scattered architecturally normal nodes are present. The nodes show normal fatty hilus, normal cortical thickness, and no cystic change or calcification. No abnormal color flow. The largest nodes are as follows: Level 1B: 0.5 x 0.6 x 0.6 cm. Prior: 0.4 x 0.4 x 0.4 cm. Normal deonte architecture. Level 1B: 0.9 x 0.5 x 1.3 cm. Prior: 1.0 x 1.2 x 0.4 cm. Normal deonte architecture. Level 3: 3.7 x 0.7 x 1.6 cm. Prior: Not seen. Normal deonte architecture. LEFT NECK SOFT TISSUES: Scattered architecturally normal nodes are present. The nodes show normal fatty hilus, normal cortical thickness, and no cystic change or calcification. No abnormal color flow. The largest nodes are as follows: Level 1B: 0.7 x 0.8 x 0.7 cm. Prior: 0.9 x 0.9 x 0.8 cm. Normal deonte architecture. Level 2: 0.8 x 0.7 x 1.1 cm. Prior: 0.9 x 0.9 x 0.8 cm. Normal deonte architecture. Level 2: 1.7 x 0.7 x 1.1 cm. Prior: 1.7 x 1.1 x 0.7 cm. There is focal cortical thickening to 4 mm. Level 2: 1.5 x 0.4 x 0.7 cm. Prior: 1.2 x 1.1 x 0.7 cm. Normal deonte architecture. Prior thyroidectomy. Within the left thyroid bed, a 1.0 x 0.3 x 0.3 cm soft tissue density is seen. This was seen on the ultrasound dated 10/22/2021, measuring 1.0 x 0.5 x 0.3 cm. No cystic or solid nodules demonstrated in the thyroid bed. 02/08/2023 RIGHT NECK SOFT TISSUES: Scattered architecturally normal nodes are present. The nodes show normal fatty hilus, normal cortical thickness, and no cystic change or calcification. No abnormal color flow. The largest nodes are as follows: Level 1B: 1.2 x 0.4 x 0.5 cm. Prior: 1.2 x 0.9 x 0.5 cm. Normal deonte architecture. Level 3: 1.1 x 0.4 x 0.4 cm. Prior: 2.7 x 1.6 x 0.7 cm. Normal deonte architecture. Level 4: 1.1 x 0.4 x 0.5 cm. Prior: Not seen. There are irregular margins. Level 5A: 0.7 x 0.2 x 0.2 cm. Prior: Not seen. Normal deonte architecture. Level 5A: 0.7 x 0.2 x 0.2 cm. Prior: Not seen. Normal deonte architecture. LEFT NECK SOFT TISSUES: Scattered architecturally normal nodes are present. The nodes show normal fatty hilus, normal cortical thickness, and no cystic change or calcification. No abnormal color flow. The largest nodes are as follows: Level 1B: 0.7 x 0.8 x 0.7 cm. Prior: 0.7 x 0.8 x 0.7 cm. Normal deonte architecture. Level 1B: 1.9 x 0.9 x 1.9 cm. Prior: Newly seen. There is focal cortical thickening. Level 2: 0.8 x 0.7 x 1.1 cm. Prior: 0.9 x 0.6 x 0.6 cm. Normal deonte architecture. Level 5A: 0.6 x 0.4 x 0.6 cm. Prior: Newly seen. Normal deonte architecture. Level 5B: 0.9 x 0.1 x 0.1 cm. Prior: Newly seen. Normal deonte architecture. US/US soft tiss head and/or neck IMPRESSION: 1. Question residual left thyroid tissue again seen measuring 1.0 x 0.3 x 0.3 cm. The interim stability from 10/22/2021 is reassuring. This could be further evaluated with contrast-enhanced CT, if clinically indicated. 2. Multiple bilateral cervical lymph nodes are seen, as detailed. The most concerning of these is a new 1.9 cm in transverse diameter lymph node with focal cortical thickening seen at left level 1B. Further work-up may be indicated. US SOFT TISSUE HEAD/ [facility] [place] CLINICAL INFORMATION: Personal history of malignant neoplasm of thyroid. COMPARISON: US thyroid 07/07/2020 and 01/15/2014. TECHNIQUE: Ultrasound of the neck soft tissues is performed with high- frequency salter-scale imaging and color Doppler. FINDINGS: THYROID BED: Prior thyroidectomy. There is a hypoechoic area in left thyroid bed, question residual tissue. Measures 1.0 x 0.5 x 0.3 cm. RIGHT NECK SOFT TISSUES: Scattered architecturally normal nodes are present. The nodes show normal fatty hilus, normal cortical thickness, and no cystic change or calcification. No abnormal color flow. The largest nodes are as follows: Level IB: 0.4 x 0.4 x 0.4 cm. Normal deonte architecture. Level 1B: 1.0 x 1.2 x 0.4 cm. Normal deonte architecture. LEFT NECK SOFT TISSUES: Scattered architecturally normal nodes are present. The nodes show normal fatty hilus, normal cortical thickness, and no cystic change or calcification. No abnormal color flow. The largest nodes are as follows: Level 1B: 0.9 x 0.9 x 0.8 cm. Normal deonte architecture. Level 2: 1.7 x 1.1 x 0.7 cm. Abnormal deonte architecture. Level 2: 1.2 x 1.1 x 0.7 cm. Normal deonte architecture. Level 2: 1.0 x 0.9 x 0.8 cm. Normal deonte architecture. US/US soft tiss head and/or neck IMPRESSION: 1. There is residual thyroid tissue visualized in the left thyroid bed, measuring 1.0 cm. 2. There are bilateral neck lymph nodes which have normal architecture except for level 2 left lymph node measuring 1.7 cm and having abnormal architecture. If clinically indicated this can be biopsied with ultrasound. [facility] Medical History Bleeding hemorrhoids hemorrhage History of thyroid cancer Vitamin D deficiency Postoperative hypothyroidism Abnormal thyroid biopsy Non-toxic multinodular goiter Diabetes Surgical History History of hemorrhoidectomy (~04/01/23) Hx of colonoscopy Hx of thyroidectomy History of hysterectomy Family History Father No problems noted. 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 Physical Exam Vital Signs: Last Vital Signs Pulse 70 02/23/24 13:52 BP 124/78 02/23/24 13:52 BMI result Body Mass Index 33.5 Assessment & Plan Assessment & Plan (1) History of thyroid cancer: Code(s): Z85.850 - Personal history of malignant neoplasm of thyroid Category: Medical Plan: 48-year-old female seen today for follow up of thyroid cancer status post total thyroidectomy in January 2021 with 3 cm focus follicular carcinoma within the right lobe and 0.6 cm focus of follicular variant PTC within the left lobe with a no ETE/AI/LI, margins were negative, AJCC stage 1 (pT2 pNX), JAMA intermediate risk of recurrence based on type of thyroid cancer, status post QUINTERO I 131 remnant ablation with 29.9 mCi in July 2021. She has had ultrasounds over the last few years that have shown suspicious lymph nodes most recently her last ultrasound was from January 2023 which showed a left level 1B, 1.9 cm lymph node with cortical thickening. Previously she was noted to have a 1.7 cm level 2 lymph node that was of normal-appearing. Her non stimulated TG levels have remained less than 0.1, and stimulated TG levels has been 1.3 in July 2021 after remnant ablation dose, and then in July 2022 stimulated TG level came down to 0.1. These are very reassuring. However given prior suspicious looking lymph nodes, I will repeat an ultrasound myself to look for any abnormal lymph nodes. Based on these lymph nodes from her past ultrasound she is currently JAMA indeterminate response to therapy. In indeterminate response, 15% to 20% we will have structural disease identified during follow-up, however in the remainder of the nonspecific changes are either stable or resolved, less than 1% have disease specific Given indeterminate response to therapy her TSH goal as 0.1-0.5. Currently she has been off levothyroxine 137 mcg daily for the past 2 weeks due to being out of refills. I have refilled this today and I asked her to started immediately from tomorrow. We will also draw blood work today given that her TSH might be high, it is a good time to check her TG markers as well. She will also need read repeat labs in 6 weeks. Plan: -schedule ultrasound of the neck with me at the next available opening -continue levothyroxine 137 mcg daily -check TSH, free T4, thyroglobulin markers -we will need repeat TSH, free T4 to be done in 6 weeks which would be around 04/05/2024 (2) Postoperative hypothyroidism: Code(s): E89.0 - Postprocedural hypothyroidism Category: Medical Plan: Given indeterminate response to therapy her TSH goal as 0.1-0.5. Currently she has been off levothyroxine 137 mcg daily for the past 2 weeks due to being out of refills. I have refilled this today and I asked her to started immediately from tomorrow. We will also draw blood work today given that her TSH might be high, it is a good time to check her TG markers as well. She will also need read repeat labs in 6 weeks. Plan: -continue levothyroxine 137 mcg daily -check TSH, free T4, thyroglobulin markers -we will need repeat TSH, free T4 to be done in 6 weeks which would be around 04/05/2024 Plan I spent 45 minutes in reviewing the record, seeing the patient and documenting in the medical record. Orders: Orders 2 Thyroglobulin Today C73 - Malignant neoplasm of thyroid gland, E89.0 - Postprocedural hypothyroidism, Z85.850 - Personal history of malignant neoplasm of thyroid Thyroglobulin Antibodies Today C73 - Malignant neoplasm of thyroid gland, E89.0 - Postprocedural hypothyroidism, Z85.850 - Personal history of malignant neoplasm of thyroid Thyroid Stimulating Hormone Today C73 - Malignant neoplasm of thyroid gland, E89.0 - Postprocedural hypothyroidism, Z85.850 - Personal history of malignant neoplasm of thyroid Free T4 (Free Thyroxine) Today C73 - Malignant neoplasm of thyroid gland, E89.0 - Postprocedural hypothyroidism, Z85.850 - Personal history of malignant neoplasm of thyroid Thyroglobulin Tumor Marker Today C73 - Malignant neoplasm of thyroid gland, E89.0 - Postprocedural hypothyroidism, Z85.850 - Personal history of malignant neoplasm of thyroid US soft tiss head and/or neck 03/07/24 Z85.850 - Personal history of malignant neoplasm of thyroid Medications: Refilled 2 levothyroxine 137 mcg PO DAILY 30 tabs 7RF Coding Level of Care Code Est Pt Level 5 (70675) Complex EM visit Add On G2211 Diagnoses History of thyroid cancer Z85.850 Postoperative hypothyroidism E89.0 Time Spent (min) 45
== END 2024-02-23 14:47 | disposition home or self-care (01) ==
LOC: HO.ENCR 13:46
PROVIDERS: PCP Internal Medicine; Visit Provider Student in an Organized Health Care Education/Training Program
DX: E89.0 Postprocedural hypothyroidism (principal); Z85.850 Personal history of malignant neoplasm of thyroid
CPT/HCPCS: 99215; G2211

== ENCOUNTER 2024-02-23 13:45 | Outpatient (REF) | payer OTHER, SELFPAY ==
[2024-02-23 16:32] LABS: Free T4 (Free Thyroxine) < 0.42 ng/dL (0.71-1.85); Thyroid Stimulating Hormone 43.32 uIU/mL (0.32-4.0)
[2024-02-24 08:03] LABS: Thyroglobulin 0.2 ng/mL; Thyroglobulin Antibodies <1 IU/mL (< or = 1)
[2024-03-04 22:33] LABS: Thyroglobulin Antibody 3 IU/mL (<=1); Thyroglobulin LC/MS/MS <0.4 ng/mL (Athyrotic: <0)
== END 2024-02-23 13:46 | disposition home or self-care (01) ==
LOC: HO.LAB 13:45
PROVIDERS: PCP Internal Medicine; Visit Provider Student in an Organized Health Care Education/Training Program
DX: C73 Malignant neoplasm of thyroid gland (principal); Z85.850 Personal history of malignant neoplasm of thyroid; E89.0 Postprocedural hypothyroidism; Z79.890 Hormone replacement therapy
CPT/HCPCS: 36415; 84432; 84439; 84443; 86800; 99212

== ENCOUNTER 2024-03-07 09:40 | Outpatient (REF) | payer OTHER, SELFPAY ==
--- NOTE | 2024-03-07 10:29 | PM.PROC ---
Brief Operative Note Date of procedure: 03/07/24 Pre-op diagnosis: history of malignant neoplasm of thyroid Procedure: EXAMINATION: US SOFT TISSUE NECK CLINICAL INFORMATION: Personal history of malignant neoplasm of thyroid COMPARISON: Ultrasound soft tissue head/neck thyroid dated 02/08/23 TECHNIQUE: Ultrasound of the neck soft tissues is performed with high- frequency salter-scale imaging and color Doppler. All measurements are given as sagittal X AP X transverse. FINDINGS: Within the left thyroid bed, a 0.7 X 0.5 X 0.7 cm soft tissue density seen. This was seen on the ultrasound dated 02/08/2023, measuring 1.0 X 0.3 X 0.3 cm. No cystic or solid nodules demonstrated in the thyroid bed. RIGHT NECK SOFT TISSUES: Scattered architecturally normal nodes are present. The nodes show normal fatty hilus, normal cortical thickness, and no cystic change or calcification. No abnormal color flow. The largest nodes are as follows: Level 1B: 1.8 X 0.3 X 1.2 cm. Prior: Not seen. Normal deonte architecture. LEFT NECK SOFT TISSUES: Scattered architecturally normal nodes are present. The nodes show normal fatty hilus, normal cortical thickness, and no cystic change or calcification. No abnormal color flow. The largest nodes are as follows: Level 1B: 1.3 X 0.5 X 0.8 cm, prior: Not seen. Normal deonte architecture. Level 5A: 1.6 X 0.7 X 1.1 cm, prior: Not seen. Normal deonte architecture. IMPRESSION: 1. Question residual left thyroid tissue again seen measuring 0.7 X 0.5 X 0.7 cm. The interim stability from 02/08/23 is reassuring. 2. Bilateral normal-appearing oval lymph nodes seen as detailed above. The concerning 1.9 cm in transverse diameter left level 1B lymph node with focal cortical thickening seen on ultrasound dated 02/08/2023 is not seen on my ultrasound today. Rahel Keys MD Endocrinology Attending
== END 2024-03-07 09:41 | disposition home or self-care (01) ==
LOC: HO.US 09:40
PROVIDERS: PCP Internal Medicine; Visit Provider Student in an Organized Health Care Education/Training Program
DX: Z85.850 Personal history of malignant neoplasm of thyroid (principal)
CPT/HCPCS: 76536

== ENCOUNTER → 2024-03-07 09:40 | Outpatient (BNV) | payer OTHER, SELFPAY | PROVIDERS: PCP Internal Medicine; Visit Provider Student in an Organized Health Care Education/Training Program | DX: E04.2 Nontoxic multinodular goiter (principal); Z85.850 Personal history of malignant neoplasm of thyroid | CPT/HCPCS: 76536 ==

== ENCOUNTER → 2024-03-21 13:37 | Outpatient (AMB) | payer OTHER, SELFPAY ==
--- NOTE | 2024-03-21 13:39 | A.OFFVIS_ITS ---
Vital Signs 3 03/21/24 13:43 Height 5 ft 4 in Weight 186 lb 11.704 oz BMI 32.0 BP 126/74 Blood Pressure Location Lt brachial Position Sitting Pulse 64 Pulse Source Pulse Oximeter Intake Visit Reasons: Biopsy f/u-confirmed Intake Note: Patient present today for biopsy follow up visit. 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 She is now classified as JAMA excellent response to therapy. HPI of thyroid cancer 09/25/2020 : FNA of isthmic nodule, right mid pole nodule, both were benign follicular nodules [place] category 2. She also had a biopsy of right lower pole nodule, cytology was consistent with atypia of undetermined significance, [place] category 3. Afirma is suspicious for malignancy.? The risk of malignancy is 50%. 01/26/2021: underwent a total thyroidectomy by Dr. Mendez Official surgical path revealed a 3.0 cm focus of follicular carcinoma within the R lobe, and a 0.6 cm focus of Follicular variant of PTC within the left lobe. There was no extrathyroidal extension. No angioinvasion. No lymphatic invasion, and margins were uninvolved. 0 lymph nodes were examined. This was pT2pNx. Postoperatively she was started on levothryoxine. 08/05/2021: underwent I131 ablation with 29.9 mCi I-131 08/04/2021 : labs TSH was 27.69 at that time, with TG 1.3, TGAB <1. Post-treatment WBS revealed faint uptake in the left thyroid bed, and avid uptake superior, which on SPECT-CT localizes to the thyroid cartilage. This finding was thought to be nonspecific and may indicate residual thyroid tissue, vs lymph node vs ectopic thyroid. 10/22/2021: Ultrasound neck normal-appearing right-sided lymph nodes, on the left side, level 2, 1.7 cm of normal-appearing lymph node reported. Other normal-appearing lymph nodes noted. Residual thyroid tissue visualized in the left thyroid bed measuring 1 cm 03/08/2022 labs with TSH 0.52, TG <0.1 and TGAB <1. 05/26/2022: Ultrasound of the neck showed normal-appearing right-sided lymph nodes. One of them was enlarged up to 3.7 cm at level 3 not seen previously. However this has normal deonte architecture. Again on the left side normal- appearing lymph node seed but a abnormal lymph node at level 2 measuring 1.7 cm with focal cortical thickening noted. 08/06/2022: WBS , which was completed via thyroid hormone withdrawal. revealed a faint focus of uptake to the right of midline, decreased from prior. This was located anterolateral to the thyroid cartilage. There was no CT correlate on SPECT CT. This was thought to likely represent trace reisdual tissue along the thyroglossal duct. 08/03/2022 labs TSH 34.12, TG 0.1 and TG antibodies negative. 02/08/2023: Ultrasound of the neck showed normal right-sided lymph nodes. On the left side 1.9 cm lymph node this time labeled at level 1B noted with cortical thickening. Residual left thyroid tissue measuring 1 cm noted. 07/2023 when her TSH was 1.38, free T4 1.08, thyroglobulin less than 0.1, thyroglobulin antibody less than 1 Interval history 03/07/2024: Ultrasound neck done by myself did not show any abnormal lymph nodes. Showed normal-appearing lymph nodes. 02/23/2024: Labs TSH 43.32, she had run out of refills on the levothyroxine, free T4 less than 0.42, thyroglobulin 0.2, TG antibody 3 Patient denies any compressive symptoms. She has restarted taking the levothyroxine 137 mcg daily. now that she have her refills. fatigue has improved. Physical exam General: sitting comfortably in no acute distress HEENT: normocephalic/atraumatic, moist oral mucosa Neck: supple, symmetrical, no palpable masses , no dorsocervical or supraclavicular fat pads Cardiac: normal heart sounds Pulm: normal breath sounds B/L, no added breath sounds Abd: not distended, no tenderness Extremities: no edema, no signs of myxedema Neuro: AAO x3, Speech: normal, no facial droop, moving all 4 extremities Laboratory Tests 09/11/20 03/23/21 07/08/21 15:18 08:38 09:12 TSH 0.59 0.06 L 0.53 Free T4 Thyroglobulin 0.1 L 0.1 L Thyroglobulin Antibody <1 <1 <1 08/04/21 09/23/21 11/06/21 09:05 13:05 12:26 TSH 27.69 H 6.27 H 2.02 Free T4 1.23 Thyroglobulin 1.3 L 0.2 L <0.1 L Thyroglobulin Antibody <1 <1 <1 03/08/22 05/05/22 07/27/22 08:26 11:45 08:57 TSH 0.52 0.20 L 18.65 H Free T4 1.31 1.18 Thyroglobulin <0.1 L <0.1 0.1 H Thyroglobulin Antibody <1 <1 <1 08/03/22 11/02/22 02/08/23 09:17 Unknown 12:30 TSH 34.12 H 16.25 H 0.05 L Free T4 < 0.42 L 0.82 1.41 Thyroglobulin 0.1 H <0.1 Thyroglobulin Antibody <1 <1 07/27/23 08/16/23 09:30 08:45 TSH 7.34 H 1.38 Free T4 0.90 1.08 Thyroglobulin <0.1 Thyroglobulin Antibody <1 Laboratory Tests 02/23/24 15:12 TSH 43.32 H Free T4 < 0.42 L Thyroglobulin 0.2 L Thyroglobulin LC-MS/MS <0.4 Laboratory Tests 02/23/24 15:12 Thyroglobulin Antibody 3 H Imaging US SOFT TISSUE NECK 02/14 CLINICAL INFORMATION: Status post thyroidectomy for malignancy. COMPARISON: Prior ultrasound examinations, most recently 05/26/2022. TECHNIQUE: Ultrasound of the neck soft tissues is performed with high- frequency salter-scale imaging and color Doppler. FINDINGS: THYROID BED: Prior thyroidectomy. Within the left thyroid bed, a 1.0 x 0.3 x 0.3 cm soft tissue density is seen. This was seen on the ultrasound dated 10/22/2021, measuring 1.0 x 0.5 x 0.3 cm. No cystic or solid nodules demonstrated in the thyroid bed. RIGHT NECK SOFT TISSUES: Scattered architecturally normal nodes are present. The nodes show normal fatty hilus, normal cortical thickness, and no cystic change or calcification. No abnormal color flow. The largest nodes are as follows: Level 1B: 1.2 x 0.4 x 0.5 cm. Prior: 1.2 x 0.9 x 0.5 cm. Normal deonte architecture. Level 3: 1.1 x 0.4 x 0.4 cm. Prior: 2.7 x 1.6 x 0.7 cm. Normal deonte architecture. Level 4: 1.1 x 0.4 x 0.5 cm. Prior: Not seen. There are irregular margins. Level 5A: 0.7 x 0.2 x 0.2 cm. Prior: Not seen. Normal deonte architecture. Level 5A: 0.7 x 0.2 x 0.2 cm. Prior: Not seen. Normal deonte architecture. LEFT NECK SOFT TISSUES: Scattered architecturally normal nodes are present. The nodes show normal fatty hilus, normal cortical thickness, and no cystic change or calcification. No abnormal color flow. The largest nodes are as follows: Level 1B: 0.7 x 0.8 x 0.7 cm. Prior: 0.7 x 0.8 x 0.7 cm. Normal deonte architecture. Level 1B: 1.9 x 0.9 x 1.9 cm. Prior: Newly seen. There is focal cortical thickening. Level 2: 0.8 x 0.7 x 1.1 cm. Prior: 0.9 x 0.6 x 0.6 cm. Normal deonte architecture. Level 5A: 0.6 x 0.4 x 0.6 cm. Prior: Newly seen. Normal deonte architecture. Level 5B: 0.9 x 0.1 x 0.1 cm. Prior: Newly seen. Normal deonte architecture. US/US soft tiss head and/or neck IMPRESSION: 1. Question residual left thyroid tissue again seen measuring 1.0 x 0.3 x 0.3 cm. The interim stability from 10/22/2021 is reassuring. This could be further evaluated with contrast-enhanced CT, if clinically indicated. 2. Multiple bilateral cervical lymph nodes are seen, as detailed. The most concerning of these is a new 1.9 cm in transverse diameter lymph node with focal cortical thickening seen at left level 1B. Further work-up may be indicated. US Head and Neck: 05/26/2022 THYROID BED: Prior thyroidectomy. No residual thyroid tissue demonstrated in the thyroid bed. No cystic or solid nodules demonstrated in the thyroid bed. RIGHT NECK SOFT TISSUES: Scattered architecturally normal nodes are present. The nodes show normal fatty hilus, normal cortical thickness, and no cystic change or calcification. No abnormal color flow. The largest nodes are as follows: Level 1B: 0.5 x 0.6 x 0.6 cm. Prior: 0.4 x 0.4 x 0.4 cm. Normal deonte architecture. Level 1B: 0.9 x 0.5 x 1.3 cm. Prior: 1.0 x 1.2 x 0.4 cm. Normal deonte architecture. Level 3: 3.7 x 0.7 x 1.6 cm. Prior: Not seen. Normal deonte architecture. LEFT NECK SOFT TISSUES: Scattered architecturally normal nodes are present. The nodes show normal fatty hilus, normal cortical thickness, and no cystic change or calcification. No abnormal color flow. The largest nodes are as follows: Level 1B: 0.7 x 0.8 x 0.7 cm. Prior: 0.9 x 0.9 x 0.8 cm. Normal deonte architecture. Level 2: 0.8 x 0.7 x 1.1 cm. Prior: 0.9 x 0.9 x 0.8 cm. Normal deonte architecture. Level 2: 1.7 x 0.7 x 1.1 cm. Prior: 1.7 x 1.1 x 0.7 cm. There is focal cortical thickening to 4 mm. Level 2: 1.5 x 0.4 x 0.7 cm. Prior: 1.2 x 1.1 x 0.7 cm. Normal deonte architecture. Prior thyroidectomy. Within the left thyroid bed, a 1.0 x 0.3 x 0.3 cm soft tissue density is seen. This was seen on the ultrasound dated 10/22/2021, measuring 1.0 x 0.5 x 0.3 cm. No cystic or solid nodules demonstrated in the thyroid bed. 02/08/2023 RIGHT NECK SOFT TISSUES: Scattered architecturally normal nodes are present. The nodes show normal fatty hilus, normal cortical thickness, and no cystic change or calcification. No abnormal color flow. The largest nodes are as follows: Level 1B: 1.2 x 0.4 x 0.5 cm. Prior: 1.2 x 0.9 x 0.5 cm. Normal deonte architecture. Level 3: 1.1 x 0.4 x 0.4 cm. Prior: 2.7 x 1.6 x 0.7 cm. Normal deonte architecture. Level 4: 1.1 x 0.4 x 0.5 cm. Prior: Not seen. There are irregular margins. Level 5A: 0.7 x 0.2 x 0.2 cm. Prior: Not seen. Normal deonte architecture. Level 5A: 0.7 x 0.2 x 0.2 cm. Prior: Not seen. Normal deonte architecture. LEFT NECK SOFT TISSUES: Scattered architecturally normal nodes are present. The nodes show normal fatty hilus, normal cortical thickness, and no cystic change or calcification. No abnormal color flow. The largest nodes are as follows: Level 1B: 0.7 x 0.8 x 0.7 cm. Prior: 0.7 x 0.8 x 0.7 cm. Normal deonte architecture. Level 1B: 1.9 x 0.9 x 1.9 cm. Prior: Newly seen. There is focal cortical thickening. Level 2: 0.8 x 0.7 x 1.1 cm. Prior: 0.9 x 0.6 x 0.6 cm. Normal deonte architecture. Level 5A: 0.6 x 0.4 x 0.6 cm. Prior: Newly seen. Normal deonte architecture. Level 5B: 0.9 x 0.1 x 0.1 cm. Prior: Newly seen. Normal deonte architecture. US/US soft tiss head and/or neck IMPRESSION: 1. Question residual left thyroid tissue again seen measuring 1.0 x 0.3 x 0.3 cm. The interim stability from 10/22/2021 is reassuring. This could be further evaluated with contrast-enhanced CT, if clinically indicated. 2. Multiple bilateral cervical lymph nodes are seen, as detailed. The most concerning of these is a new 1.9 cm in transverse diameter lymph node with focal cortical thickening seen at left level 1B. Further work-up may be indicated. US SOFT TISSUE HEAD/ 10/14[facility] CLINICAL INFORMATION: Personal history of malignant neoplasm of thyroid. COMPARISON: US thyroid 07/07/2020 and 01/15/2014. TECHNIQUE: Ultrasound of the neck soft tissues is performed with high- frequency salter-scale imaging and color Doppler. FINDINGS: THYROID BED: Prior thyroidectomy. There is a hypoechoic area in left thyroid bed, question residual tissue. Measures 1.0 x 0.5 x 0.3 cm. RIGHT NECK SOFT TISSUES: Scattered architecturally normal nodes are present. The nodes show normal fatty hilus, normal cortical thickness, and no cystic change or calcification. No abnormal color flow. The largest nodes are as follows: Level IB: 0.4 x 0.4 x 0.4 cm. Normal deonte architecture. Level 1B: 1.0 x 1.2 x 0.4 cm. Normal deonte architecture. LEFT NECK SOFT TISSUES: Scattered architecturally normal nodes are present. The nodes show normal fatty hilus, normal cortical thickness, and no cystic change or calcification. No abnormal color flow. The largest nodes are as follows: Level 1B: 0.9 x 0.9 x 0.8 cm. Normal deonte architecture. Level 2: 1.7 x 1.1 x 0.7 cm. Abnormal deonte architecture. Level 2: 1.2 x 1.1 x 0.7 cm. Normal deonte architecture. Level 2: 1.0 x 0.9 x 0.8 cm. Normal deonte architecture. US/US soft tiss head and/or neck IMPRESSION: 1. There is residual thyroid tissue visualized in the left thyroid bed, measuring 1.0 cm. 2. There are bilateral neck lymph nodes which have normal architecture except for level 2 left lymph node measuring 1.7 cm and having abnormal architecture. If clinically indicated this can be biopsied with ultrasound. US SOFT TISSUE NECK 03/07/24 CLINICAL INFORMATION: Personal history of malignant neoplasm of thyroid COMPARISON: Ultrasound soft tissue head/neck thyroid dated 02/08/23 TECHNIQUE: Ultrasound of the neck soft tissues is performed with high- frequency salter-scale imaging and color Doppler. All measurements are given as sagittal X AP X transverse. FINDINGS: Within the left thyroid bed, a 0.7 X 0.5 X 0.7 cm soft tissue density seen. This was seen on the ultrasound dated 02/08/2023, measuring 1.0 X 0.3 X 0.3 cm. No cystic or solid nodules demonstrated in the thyroid bed. RIGHT NECK SOFT TISSUES: Scattered architecturally normal nodes are present. The nodes show normal fatty hilus, normal cortical thickness, and no cystic change or calcification. No abnormal color flow. The largest nodes are as follows: Level 1B: 1.8 X 0.3 X 1.2 cm. Prior: Not seen. Normal deonte architecture. LEFT NECK SOFT TISSUES: Scattered architecturally normal nodes are present. The nodes show normal fatty hilus, normal cortical thickness, and no cystic change or calcification. No abnormal color flow. The largest nodes are as follows: Level 1B: 1.3 X 0.5 X 0.8 cm, prior: Not seen. Normal deonte architecture. Level 5A: 1.6 X 0.7 X 1.1 cm, prior: Not seen. Normal deonte architecture. IMPRESSION: 1. Question residual left thyroid tissue again seen measuring 0.7 X 0.5 X 0.7 cm. The interim stability from 02/08/23 is reassuring. 2. Bilateral normal-appearing oval lymph nodes seen as detailed above. The concerning 1.9 cm in transverse diameter left level 1B lymph node with focal cortical thickening seen on ultrasound dated 02/08/2023 is not seen on my ultrasound today. Rahel Keys MD Endocrinology Attending [facility] Medical History Bleeding hemorrhoids hemorrhage History of thyroid cancer Vitamin D deficiency Postoperative hypothyroidism Abnormal thyroid biopsy Non-toxic multinodular goiter Diabetes Surgical History History of hemorrhoidectomy (~04/01/23) Hx of colonoscopy Hx of thyroidectomy History of hysterectomy Family History Father No problems noted. 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 Assessment & Plan Assessment & Plan (1) History of thyroid cancer: Code(s): Z85.850 - Personal history of malignant neoplasm of thyroid Category: Medical Plan: 48-year-old female seen today for follow up of thyroid cancer status post total thyroidectomy in January 2021 with 3 cm focus follicular carcinoma within the right lobe and 0.6 cm focus of follicular variant PTC within the left lobe with a no ETE/AI/LI, margins were negative, AJCC stage 1 (pT2 pNX), JAMA intermediate risk of recurrence based on type of thyroid cancer, status post QUINTERO I 131 remnant ablation with 29.9 mCi in July 2021. She has had ultrasounds over the last few years that have shown suspicious lymph nodes most recently her last ultrasound was from January 2023 which showed a left level 1B, 1.9 cm lymph node with cortical thickening. Previously she was noted to have a 1.7 cm level 2 lymph node that was of normal-appearing. Her non stimulated TG levels have remained less than 0.1, and stimulated TG levels has been 1.3 in July 2021 after remnant ablation dose, and then in July 2022 stimulated TG level came down to 0.1. These are very reassuring. However given prior suspicious looking lymph nodes, on 03/07/2024 I repeated an ultrasound myself he did not show any abnormal lymph nodes. Showed benign appearing lymph nodes. She was out of her refills of levothyroxine for the past couple of weeks so we also had her repeat labs on 02/23/2024: Labs TSH 43.32, free T4 less than 0.42, thyroglobulin 0.2, TG antibody 3. Both her stimulated and unstimulated thyroglobulin are very reassuring consistent with excellent response to therapy. The most recently we noted a TG antibody elevation of 3, the skin possibly point towards thyroglobulin being unreliable for monitoring, however I will have her repeat labs in another 6 months. We will plan for an yearly follow up. Given excellent response to therapy her TSH goal as 0.5-2. Currently on levothyroxine 137 mcg daily. Plan: -continue levothyroxine 137 mcg daily -check TSH, free T4, in 2 weeks which would be 6 weeks since she restarted taking the levothyroxine to ensure TSH is within goal range -plan to repeat thyroglobulin, TG antibody, TSH, free T4 in 6 months which would be in August 2024 -follow up in February 2025 (2) Postoperative hypothyroidism: Code(s): E89.0 - Postprocedural hypothyroidism Category: Medical Plan: Given excellent response to therapy her TSH goal as 0.5-2. Currently on levothyroxine 137 mcg daily. Plan: -continue levothyroxine 137 mcg daily -check TSH, free T4, in 2 weeks which would be 6 weeks since she restarted taking the levothyroxine to ensure TSH is within goal range Plan I spent 30 minutes in reviewing the record, seeing the patient and documenting in the medical record. Orders: Orders 2 Thyroid Stimulating Hormone 6 Months E89.0 - Postprocedural hypothyroidism, Z85.850 - Personal history of malignant neoplasm of thyroid Thyroglobulin Antibodies 6 Months E89.0 - Postprocedural hypothyroidism, Z85.850 - Personal history of malignant neoplasm of thyroid Thyroglobulin 6 Months E89.0 - Postprocedural hypothyroidism, Z85.850 - Personal history of malignant neoplasm of thyroid Thyroglobulin Tumor Marker 6 Months E89.0 - Postprocedural hypothyroidism, Z85.850 - Personal history of malignant neoplasm of thyroid Free T4 (Free Thyroxine) 6 Months E89.0 - Postprocedural hypothyroidism, Z85.850 - Personal history of malignant neoplasm of thyroid Patient Instructions: Do labs in 2 weeks Continue levothyroxine 137 mcg daily , we will reach out with blood work results to see if any adjustements need to be made Next set of tumor markers blood work ordered for August 2024 I will see you back in office in 1 year, we will also get blood work before that appointment Coding Level of Care Code Est Pt Level 4 (78693) Complex EM visit Add On G2211 Diagnoses History of thyroid cancer Z85.850 Postoperative hypothyroidism E89.0 Time Spent (min) 30
[2024-03-21 13:43] VITALS: BP 126/74; PULSE 64; BMI 32.0
== END ==
PROVIDERS: PCP Internal Medicine; Visit Provider Student in an Organized Health Care Education/Training Program
DX: Z85.850 Personal history of malignant neoplasm of thyroid (principal); E89.0 Postprocedural hypothyroidism
CPT/HCPCS: 99214; G2211

== ENCOUNTER → 2024-03-21 13:37 | Outpatient (BNVA) | payer OTHER, SELFPAY | PROVIDERS: PCP Internal Medicine; Visit Provider Student in an Organized Health Care Education/Training Program | DX: E89.0 Postprocedural hypothyroidism (principal); Z85.850 Personal history of malignant neoplasm of thyroid | CPT/HCPCS: 99212 ==

== ENCOUNTER 2024-04-23 10:42 | Outpatient (REF) | payer OTHER, SELFPAY ==
[2024-04-23 12:26] LABS: Free T4 (Free Thyroxine) 1.34 ng/dL (0.71-1.85); Thyroid Stimulating Hormone < 0.01 uIU/mL (0.32-4.0)
[2024-04-23 12:28] LABS: Vitamin B12 380 pg/mL (200-900)
== END 2024-04-23 10:43 | disposition home or self-care (01) ==
LOC: HO.LAB 10:42
PROVIDERS: PCP Internal Medicine; Referring Provider Student in an Organized Health Care Education/Training Program; Visit Provider Student in an Organized Health Care Education/Training Program
DX: Z85.850 Personal history of malignant neoplasm of thyroid (principal); E89.0 Postprocedural hypothyroidism; E11.65 Type 2 diabetes mellitus with hyperglycemia; E53.8 Deficiency of other specified B group vitamins
CPT/HCPCS: 36415; 82607; 84439; 84443

== ENCOUNTER 2024-06-19 10:32 | Outpatient (REF) | payer OTHER, SELFPAY ==
--- OUTSIDE RECORDS SUMMARY | 2024-06-19 12:32 | XMS_ITS | Encounter Summary ---
Author Organization [employer] Address [address] [facility] [address] [place] [address] Care Team Providers Care Cardiology Consultant Name Role Phone Yandy Perdomo MD Primary Care Provide r Encounter Details Date Type Department Care Team ([facility] Contact Info) Description 11/22/2023 Orders Only [facility] MEDICINE [address] [place] [address] Yandy Perdomo MD [address] [place] [address] Social History Tobacco Use Types Packs/Day Years Used Date Smoking Tobacco: Never Passive Smoke Exposure: Never Smokeless Tobacco: Never Alcohol Use Standard Drinks/Week Comments Never 0 (1 standard drink = 0.6 oz pur e alcohol) Depression Answer Date Recorded Patient Health Questionnaire-9 Score 0 02/15/2023 Patient Health Questionnaire-9 Score 0 02/15/2023 Last PHQ-9: Questionnaire Data Not on file 1 Housing Stability Answer Date Recorded What is your housing situation today? I have ruma lares 07/26/[address] you li ve. Do you have problems with any of the following? None of the above 07/26/2023 Food Insecurity Answer Date Recorded Within the past 12 months, y ou worried that your food would run out before you got money to buy more: Never True 07/26/2023 Within the past 12 months,th e food you bought just didn't last and you didn't have enough money to get more: Never True 05/2023 Transportation Answer Date Recorded In the past 12 months, has l ack of transportation kept you from medical appts, meetings, work or from getting things needed for daily living? No 07/26/2023 Utilities Answer Date Recorded In the past 12 months, has t he electric, gas, oil or water company threatened to shut off services in your home? No 07/26/2023 Depression Answer Date Recorded Patient Health Questionnaire-2 Score 0 02/15/2023 Comments Unknown Sex and Gender Information Value Date Recorded Sex Assigned at Female 02/22/2022 10:17 AM EDT Legal Sex Female 10:17 AM EDT Gender Identity Female 02/22/2022 10:17 AM EDT Sexual Orientation Straight 02/22/2022 10 :17 AM EDT documented as of this encounter Plan of Treatment Not on file documented as of this encounter Visit Diagnoses Not on filedocumented in this encounter Additional Health Concerns Assessment Noted Time PHQ-9 Depression Total Score: 0 02/16/20 23 2:03 PM EDT documented as of this encounter Care Teams Cardiology Consultant Relationship Specialty Start Date End Date Yandy Perdomo MD [address] [place] [id number] PCP - General Family Medicine 12/08/18 documented as of this encounter
--- OUTSIDE RECORDS SUMMARY | 2024-06-19 12:32 | XMS_ITS | Encounter Summary ---
Author Organization [employer] Address [address] [place] [address] [address] [place] [address] Care Team Providers Care Nurse Quality Name Role Phone Yandy Perdomo MD Primary Care Provide r Reason for Visit * Reason Comments Med Refill Encounter Details Date Type Department Care Team ([facility] st Contact Info) Description 12/14/2022 Refill [facility] [address] [place], [place] [phone] Ada Perera DO [address] [place] [address] Type 2 diabetes mellitus with other specified complication, unspecified whether terminal operator insulin use (CMS/HCC) Social History Tobacco Use Types Packs/Day Years Used Date Smoking Tobacco: Never Passive Smoke Exposure: Never Smokeless Tobacco: Never Alcohol Use Standard Drinks/Week Comments Never 0 (1 standard drink = 0.6 oz pur e alcohol) Comments Unknown Sex and Gender Information Value Date Recorded Sex Assigned at Female 02/22/2022 10:17 AM EDT Legal Sex Female 10:17 AM EDT Gender Identity Female 02/22/2022 10:17 AM EDT Sexual Orientation Straight 02/22/2022 10 :17 AM EDT documented as of this encounter Plan of Treatment Not on file documented as of this encounter Visit Diagnoses Diagnosis Type 2 diabetes mellitus with other specified complication, unspecified whether terminal operator insulin use (CMS/HCC) documented in this encounter Care Teams Nurse Quality Relationship Specialty Start Date End Date Yandy Perdomo MD [address] [place] [address] PCP - General Family Medicine 12/08/18 documented as of this encounter
--- OUTSIDE RECORDS SUMMARY | 2024-06-19 12:32 | XMS_ITS | Encounter Summary ---
Author Organization [employer] Address [address] [facility] [address] [place] [address] Care Team Providers Care Block Handler Name Role Phone Yandy Perdomo MD Primary Care Provide r Encounter Details Date Type Department Care Team ([facility] st Contact Info) Description 12/15/2022 Orders Only [facility] [address] [place] [address] Ada Wise LPN Social History Tobacco Use Types Packs/Day Years [...] Diagnoses Not on filedocumented in this encounter Care Teams Block Handler Relationship Specialty Start Date End Date Yandy Perdomo MD [address] [place] [id number] PCP - General Family Medicine 12/08/18 documented as of this encounter
--- OUTSIDE RECORDS SUMMARY | 2024-06-19 12:32 | XMS_ITS | Encounter Summary ---
Author Organization [employer] Address [address] [place] [address] [address] [place] [address] Care Team Providers Care Application Spec Name Role Phone Yandy Perdomo MD Primary Care Provide r Reason for Visit * Reason Comments Med Refill Encounter Details Date Type Department Care Team ([facility] st Contact Info) Description 10/19/2022 Refill [facility] DIABETES/NUTRITION [address] [place] [address] Yandy Perdomo MD [address] [place] [address] Social History Tobacco Use Types Packs/Day Years [...] Orientation Straight 02/22/2022 10 :17 AM EDT COVID-19 Exposure Response Date Recorded In the last 10 days, have yo u been in contact with someone who was confirmed or suspected to have Coronavirus/COVID-19? No / Unsure 10/15/2022 8:52 AM EDT documented as of this encounter Plan of Treatment Not on file documented as of this encounter Visit Diagnoses Not on filedocumented in this encounter Care Teams Application Spec Relationship Specialty Start Date End Date Yandy Perdomo MD [address] [place] [address] PCP - General Family Medicine 12/08/18 documented as of this encounter
--- OUTSIDE RECORDS SUMMARY | 2024-06-19 12:32 | XMS_ITS | Clinical Summary ---
Author Organization [employer] Address [address] [place] [address] [address] [place] [address] Care Team Providers Care Design Intern Name Role Phone Yandy Perdomo MD Primary Care Provide r Allergies No known active allergies Medications * This document contains information received from the source organization and may not represent a complete record from that organization. ASPIRIN 81 PO take 1 tablet (81MG) by oral route every day 012 Active lisinopril 2.5 MG tablet Take 1 tablet by mouth at bed time. 012 Active docusate sodium (Colace) 100 MG capsule Take 1 capsule by mouth every 12 (twelve) hours. 019 Active glucose blood (FREESTYLE LITE) test strip every 12 (twelve) hours. 019 Active glucose blood (FREESTYLE LITE) test strip 010 Active ibuprofen 800 MG tablet Take 1 tablet by mouth every 8 (eight) hours. 021 Active levothyroxine (Tirosint) 137 MCG capsule Take by mouth before breakfast. Active fluconazole (Diflucan) 150 MG tabletIndicati ons:Yeast infection Take one tablet then after 72 hrs take another tablet 2 tablet 023 Active fluconazole (Diflucan) 150 MG tabletIndicati ons:Yeast infection Take one tablet then after 72hrs take another tablet 2 tablet 024 Active insulin glargine (Lantus SoloStar) 100 UNIT/ML penIndications :Type 2 diabetes mellitus with other specified complication, unspecified whether senior living insulin use (CMS/[facility]) INJECT 10 UNITS SUBCUTANEOUSLY EVERY EVENING 15 mL 3 024 Active dulaglutide (Trulicity) 1.5 MG/0.5ML solution pen-injectorIn dications:Type 2 diabetes mellitus with hyperglycemia, with long-term current use of insulin ([facility]) Inject 1.5 mg under the skin 1 (one) time per week. 4 each 11 024 Active metFORMIN (Glucophage) 1000 MG tablet TAKE 1 TABLET BY MOUTH TWICE A DAY WITH BREAKFAST AND DINNER 180 tablet 1 025 Active pioglitazone (Actos) 15 MG tabletIndicati ons:Type 2 diabetes mellitus with other specified complication, unspecified whether senior living insulin use ([facility]) TAKE 1 TABLET BY MOUTH EVERY DAY 90 tablet 1 025 Active metFORMIN (Glucophage) 1000 MG tablet TAKE 1 TABLET BY MOUTH TWICE A DAY WITH BREAKFAST AND DINNER 180 tablet 1 024 2024 Discontinued pioglitazone (Actos) 15 MG tabletIndicati ons:Type 2 diabetes mellitus with other specified complication, unspecified whether senior living insulin use ([facility]) TAKE 1 TABLET BY MOUTH EVERY DAY 90 tablet 1 024 2024 Discontinued Active Problems Problem Noted Date Diagnosed Date Herpes zoster without complication 02/08/2024 Hemorrhoids 02/15/2023 Assessment & Plan (07/26/2023 1:36 PM EDT): S/p hemorrhoidectomy now getting better Encounter for preventative adult health care exa mination 07/14/2022 Assessment & Plan (07/14/2022 11:46 AM EDT): Concerns for today's visit: Occupation: disability Lives with: lives with her 2 kids Social Hx: denies drinking EtOH, smoking cigarettes and recreational drug use. Diet: diabetic diet, low Na diet for her thyroid studies, avoids sugar Exercise: sedentary LMP: hysterectomy (2 years ago) Pap Smear: not necessary Colonoscopy: Patient had a colonoscopy done a year ago and she is schedule for f/u soon DEXA Scan: not due yet Mammogram: order today Hospitalizations/Surgeries: Eye Care: she has an appointment for August 2022 Dental Care: also has upcoming appointment Immunizations: COVID booster recent Influenza Recently done Neuroma of hand 07/14/2022 Assessment & Plan (07/14/2022 12:06 PM EDT): I will order an XRAY and send patient to hand specialist for further evaluation Type 2 diabetes mellitus wit h hyperglycemia, with long-term current use of insulin 07/14/2022 Assessment & Plan (01/31/2024 3:44 PM EDT): Diabetes is: not controlled but improved - Lab Results Component Value Date HGBA1C 8.3 (A) 01/31/2024 HGBA1C 8.6 (A) 11/02/2023 HGBA1C 9.3 (A) 07/26/2023 - Lab Results Component Value Date MICROALBUR 18.0 11/25/2023 CREATININE 0.65 10/15/2022 -Changes: none - Diabetic eye exam:has upcoming appointment - Diabetic foot exam:pending - Continue lifestyle modifications - Continue current medications - Follow up: 3 months Assessment & Plan (11/03/2023 2:43 PM EDT): Diabetes is: not controlled but improved - Lab Results Component Value Date HGBA1C 8.6 (A) 11/02/2023 HGBA1C 9.3 (A) 07/26/2023 HGBA1C 11.3 (A) 02/15/2023 - Lab Results Component Value Date MICROALBUR 1.6 03/23/2021 CREATININE 0.65 10/15/2022 -Changes: Patient wishes to no longer follow with endocrinology, today I increase her Trulicity to 1.5mg weekly - Diabetic eye exam:pending - Diabetic foot exam:pending - Continue lifestyle modifications - Continue current medications - Follow up: 3 months Assessment & Plan (07/26/2023 1:17 PM EDT): Diabetes is: not controlled but improved - Lab Results Component Value Date HGBA1C 9.3 (A) 07/26/2023 HGBA1C 11.3 (A) 02/15/2023 HGBA1C 11.1 (A) 10/15/2022 - Lab Results Component Value Date MICROALBUR 1.6 03/23/2021 CREATININE 0.65 10/15/2022 -Changes: none - Diabetic eye exam: - Diabetic foot exam: - Continue lifestyle modifications - Continue current medications - Follow up: 3 months Assessment & Plan (04/26/2023 4:47 PM EST): Patient is now being follow by endocrinology, tells me she has being going through a rough time at home and is making her glucose go up - Lab Results Component Value Date HGBA1C 11.3 (A) 02/15/2023 HGBA1C 11.1 (A) 10/15/2022 HGBA1C 10.5 (A) 07/14/2022 - Lab Results Component Value Date MICROALBUR 1.6 03/23/2021 CREATININE 0.65 10/15/2022 - Continue lifestyle modifications - Continue current medications Assessment & Plan (02/15/2023 2:31 PM EDT): I will refer this case to endocrinology Patient with thyrid cancer with A1c 11.3 on lantus metformin and glipizide I trulicity is contraindicated, patient with recurrent yeast infections could not tolerate invokana, patient already refer to industrial equipment wirer Assessment & Plan (10/15/2022 10:11 AM EDT): Extensive counseling marlin A1c went up to 11.1 she reports her injection made her glucose go higher I will increase her lantus to 20U at bed time I will increase glipizide to 10mg BID Referral to industrial equipment wirer and possible referral to endocrinology after this (Patient is already a complicated case with h/o thyroid cancer not a candidate for GLP-1 agonist) Assessment & Plan (07/14/2022 12:20 PM EDT): - Lab Results Component Value Date HGBA1C 10.5 (A) 07/14/2022 HGBA1C 10.8 (H) 03/23/2021 - Lab Results Component Value Date CREATININE 0.82 02/17/2021 - Diabetic eye exam: Patient has upcoming appointment - Diabetic foot exam: done today - Continue lifestyle modifications - increase lantus to 17 U at bed time continue to increase every 4 days 2 units if above FS 140 AM (fasting) -endocrinology referral done today Breast cancer screening by mammogram 07/14/2022 Right hand pain 07/14/2022 Right knee pain 07/14/2022 Elevated LFTs 03/27/2022 Follicular thyroid carcinoma 03/27/2022 Assessment & Plan (11/03/2023 2:44 PM EDT): Patient continues to follow with specialist conversation done about patient to be referred to [place] for further management, arrangements with insurance are being done Assessment & Plan (04/26/2023 4:48 PM EST): Awaiting for new referral for second opinion to [place] Onychomycosis 09/25/2019 Depression with anxiety 09/16/2011 Assessment & Plan (07/26/2023 1:36 PM EDT): Controlled c/w same interventions Assessment & Plan (10/15/2022 10:12 AM EDT): Patient declines for now medications I will refer for therapist, she declines telephone appointments if she is seen she requests in person appointments Elevated blood pressure read ing without diagnosis of hypertension 09/16/2011 Assessment & Plan (10/15/2022 10:13 AM EDT): Patient reports her BP always goes up when she comes in person to her appointments otherwise at home is always good I advise low Na diet and weight reduction C/w lisinopril 2.5mg Obesity 09/16/2011 Type 2 diabetes mellitus without complication Resolved Problems Problem Noted Date Diagnosed Date Resolved Date Type 2 diabetes mellitus wit h hyperglycemia, without long-term current use of insulin 07/14/2022 07/14/2022 Assessment & Plan (07/14/2022 11:21 AM EDT): - Lab Results Component Value Date HGBA1C 10.8 (H) 03/23/2021 - Lab Results Component Value Date CREATININE 0.82 02/17/2021 - Diabetic eye exam: - Diabetic foot exam: - Continue lifestyle modifications - Continue current medications - Personal history of malignan t neoplasm of thyroid 06/23/2022 07/11/2022 Overview (06/23/2022): Followed by endo: last notes 06/23/2022: Postprocedural hypothyroidism Remains on levothyroxine 137 mcg PO daily. TSH is at goal of 0.1-0.5. Abnormal thyroid biopsy 03/27/202206/23 Acute otitis media 03/27/2022 Thyroid nodule 03/27/2022 07/11/2022 Vaginal discharge 03/27/2022 07/11/2022 Vaginitis and vulvovaginitis 09/16/2011 07/11/2022 Encounters Date Type Department Care Team Description 06/10/2024 Refill [facility] [address] [place] [address] [phone] Yandy Perdomo MD Type 2 diabetes mellitus with other specified complication, unspecified whether intermediate manager insulin use ([facility]) 04/23/2024 Orders Only GENERIC EXTERNAL DATA DEPARTMENT Provider, Generic External Data from Last 3 Months Immunizations Name Administration Dates Next Due Influenza injectable quadriv alent preservative free 02/15/2023,03/24/2021,03/18/2020 Influenza, IIV3, injectable 03/18/2020 Influenza, seasonal, injecta ble, preservative free 01/31/2024 Cesar SARS-CoV-2 Vaccination 07/16/2020 Pfizer Covid-19 Vaccine 12+ Bivalent 04/09/2022 Pneumococcal Conjugate PCV 20 11/02/2023 Td (adult), 5 Lf tetanus tox oid, preservative free, adsorbed 12/26/2013 Tdap 12/26/2013 Social History Tobacco Use Types Packs/Day Years Used Date Smoking Tobacco: Never Passive Smoke Exposure: Never Smokeless Tobacco: Never Tobacco Cessation:Counseling Given: Not Answered Alcohol Use Standard Drinks/Week Comments Never 0 (1 standard drink = 0.6 oz pur e alcohol) Depression Answer Date Recorded Patient Health Questionnaire-9 Score 0 01/31/2024 Patient Health Questionnaire-9 Score 0 01/31/2024 Last PHQ-9: Questionnaire Data Not on file [...] Date Recorded Patient Health Questionnaire-2 Score 0 01/31/2024 Comments No Sex and Gender Information Value Date Recorded Sex Assigned at Female 02/22/2022 10:17 AM EDT Legal Sex Female 10:17 AM EDT Gender Identity Female 02/22/2022 10:17 AM EDT Sexual Orientation Straight 02/22/2022 10 :17 AM EDT Last Filed Vital Signs Vital Sign Reading Time Taken Comments Blood Pressure 119/80 02/08/2024 3:09 PM EDT Pulse 76 02/08/2024 3:09 PM EDT Temperature 35.9 ??C (96.6 ??F) 02/08/2024 3:09 PM ED T Respiratory Rate 16 02/08/2024 3:09 PM EDT Oxygen Saturation 98% 02/08/2024 3:09 PM EDT Inhaled Oxygen Concentration - - Weight 89.1 kg (196 lb 6 oz) 02/08/2024 3:09 PM EDT Height 162.6 cm (5' 4 ) 02/08/2024 3:09 PM EDT Body Mass Index 33.71 02/08/2024 3:09 PM EDT Plan of Treatment Health Maintenance Due Date Last Done Comments CT Colonography 1974 FIT DNA/Cologuard 1974 FIT 1974 FOBT 1975 HIV Screening 1975 Sigmoidoscopy 1974 Eye Exam 1984 Alcohol/Substance Use Screening 1986 Family Planning (PISQ) 1989 Hepatitis B Vaccines (1 of 3 - 19+ 3-dose series) 1993 Colonoscopy 12/29/2022 Colorectal Cancer Screening 12/29/2022 Diabetes: Foot Exam 07/15/2023 07/14/2022, COVID-19 Vaccine (3 - 2023- season) 2023 04/09/2022, 07/16/2020 DTaP/Tdap/Td Vaccines (2 - Td or Tdap) 12/27/2023 12/26/2013, 12/26/2013 Diabetes: Hemoglobin A1C 05/02/2024 024, 11/02/2023, 07/26/2023, Additional history exists Mammogram 06/14/2024 06/14/2023, 05/27, 06/20/2020 SDOH Screening 07/25/2024 07/26/2023 Zoster Vaccines (1 of 2) 2024 Diabetes: Urine Protein Screening 11/24/2024 11/25/2023, 10/15/2022, 03/23/2021 Lipid Panel 11/24/2024 11/25/2023, 09/24, 03/23/2021 Depression Screening 01/30/2025 01/31/2024, 01/31/20 24 Tobacco Screening 02/07/2025 02/08/2024 RSV Patients and Patients Aged 60 years or older (1 - 1-dose 75+ series) 2049 Hepatitis C Screening Completed 06/27/2019 Pneumococcal Vaccine: Pediatrics (0 to 5 Years) and At-Risk Patients (6 to 49) Years) Completed 11/02/2023 Influenza Vaccine Completed 01/31/2024, , 03/24/2021, Additional history exists HIB Vaccines Aged Out No longer eligi ble based on patient's age to complete this topic HPV Vaccines Aged Out No longer eligi ble based on patient's age to complete this topic Hepatitis A Vaccines Aged Out No long er eligible based on patient's age to complete this topic IPV Vaccines Aged Out No longer eligi ble based on patient's age to complete this topic Meningococcal Vaccine Aged Out No edison [place] eligible based on patient's age to complete this topic RSV under 20 months Aged Out No longe r eligible based on patient's age to complete this topic Rotavirus Vaccines Aged Out No longer eligible based on patient's age to complete this topic Procedures Procedure Name Priority Date/Time Associated Diagnosis Comments TSH Routine 04/23/2024 11:08 AM EST T4, FREE Routine 04/23/2024 11:08 AM EST POCT GLYCATED HEMOGLOBIN, TOTAL Routine 01/31/2024 11:10 AM EDT Type 2 diabetes mellitus with hyperglycemia, with long-term current use of insulin (CMS/HCC) ALBUMIN, RANDOM URINE W/CREATININE Routine 11/25/2023 12:01 PM EDT Type 2 diabetes mellitus with hyperglycemia, with long-term current use of insulin (CMS/HCC) LIPID PANEL WITH REFLEX TO DIRECT LDL Routine 11/25/2023 12:01 PM EDT Type 2 diabetes mellitus with hyperglycemia, with long-term current use of insulin (CMS/HCC) BI MAMMOGRAM SCREENING TOMOSYNTHESIS BILATERAL Routine 06/14/2023 11:23 AM EST ZZZ HISTORICAL HEPATITIS C ANTIBODY RFLX Routine 06/27/2019 12:05 PM EST from Last 3 Months or Most Recently Relevant to Health Maintenance Results * (ABNORMAL) TSH (04/23/2024 11:08 AM EST) Thyroid Stimulating Hormone <0.01(L) 0.32 - 4.0 uIU/mL [facility] Comment:TSH 3rd Generation ( [facility]) 04/23/2024 11:0 8 AM EST 04/23/2024 11:08 AM EST us Generic External Data Provider LAB BLOOD ORDERAB LES Final Result [facility] [address] [place] [phone] * T4, Free (04/23/2024 11:08 AM EST) Free T4 (Free Thyroxine) 1.34 0.71 - 1.85 ng/dL [facility] 04/23/2024 11:0 8 AM EST 04/23/2024 11:08 AM EST us Generic External Data Provider LAB BLOOD ORDERAB LES Final Result [facility] [address] [place] [address] [phone] * (ABNORMAL) POCT HGB A1C (01/31/2024 11:10 AM EDT) Hemoglobin A1C 8.3(A) 4.0 - 6.0 % QC Media Lot # [id number] Lot# Expiration Date Blood 01/31/2024 11:1 0 AM EDT us Yandy Lopez MD POINT OF CARE TEST EN TER/EDIT ORDERABLES Final Result * (ABNORMAL) Lipid Panel with Reflex to Direct LDL (11/25/2023 12:01 PM EDT) Triglycerides 139 <150 mg/dL [facility] Comment:Desirable Triglyceri de: less than 150 mg/dLBorderline High Triglyceride 150-199 mg/dLHigh Triglyceride: 200-499 mg/dLVery High Triglyceride: greater than or equal to 5OO mg/dL Cholesterol 207(H) <200 mg/dL [facility] Comment:Desirable Cholestero l: less than 200 mg/dLBorderline High Cholesterol: 200-239 mg/dLHigh Cholesterol: greater than 239 mg/dL LDL Cholesterol Calculated 122(H) <100 mg/dL [facility] Comment:Desirable LDL: less than 100 mg/dLNear Optimal/Above Optimal LDL: 110- 129 mg/dLBorderline High LDL: 130-159 mg/dLHigh LDL: 160-189 mg/dLVery High LDL: greater than or equal to 190 mg/dL HDL Cholesterol 58 >40 mg/dL [facility] Comment:Desirable HDL: great er than 40 mg/dL Note: This HDL assay may give artificially low results in patients with liver disease. Blood 11/25/2023 12:0 1 PM EDT 11/25/2023 12:59 PM EDT Yandy Lopez MD LAB BLOOD ORDERABLES Final Result Performing Organization Address [facility] [place]/[facility] de Phone Number [facility] [address] [place] [address] [phone] * Albumin, Random Urine W/Creatinine (11/25/2023 12:01 PM EDT) Creatinine, Urine 160.13 mg/dL [facility] Microalbumin Urine 18.0 mg/L [facility] Microalbum Creatinine Ratio Ur 11.2 <30 ug/mg cr [facility] Comment:Albumin/Creatinine R atio Reference Ranges: Normal: < 30 ug/mg creatinine Microalbuminuria: 30 - 300 ug/mg creatinineClinical Albuminuria: > 300 ug/mg creatinine Urine (Urine, Random) 11/25/2023 12:01 PM EDT 11/25/2023 12:59 PM EDT us Yandy Lopez MD LAB URINE ORDERABLES Final Result Performing Organization Address [facility] [place]/[facility] Co de Phone Number [facility] [address] [place] [address] [phone] * BI Mammogram Screening Tomosynthesis Bilateral (06/14/2023 11:23 AM EST) Anatomical Region Laterality Modality Breast Bilateral Mammography 06/14/2023 11:2 3 AM EST Narrative 07/05/2023 12:48 PM EDT ? [facility] ? [address] ?[place] [address] ? Mammography Report ? Signed ? Patient: Heath,Smiley ?MR#: [id number] ? : 1975 ?Acct:[id number] ? Age/Sex: 47 / F ?ADM Date: 06/14/23 ? Loc: HO.MAMMO ? Attending Dr: Yandy Lopez MD ? Ordering Physician: Yandy Perdomo MD ?Results: ?? 1Negative ? Date of Service: 06/14/23 ?Follow Up: 1 Year From Orig ?? inal Mammogram ? Procedure(s): MM tomosynthesis screening BI ?? Accession Number(s): [id number] ? cc: Yandy Perdomo MD ? EXAMINATION: ?? MM SCREENING DIGITAL BREAST TOMOSYNTHESIS, BILATERAL ? CLINICAL INFORMATION: ? Screening. Asymptomatic. ? COMPARISON: ?? Mammography: This study is compared with prior exams dating back to ?? 2017. ? TECHNIQUE: ?? Digital breast tomosynthesis is performed in both the craniocaudal and ?? mediolateral oblique views along with computer-aided detection (CAD). ?? Synthesized 2D images are generated from the tomosynthesis. ? FINDINGS: ?? There are scattered areas of fibroglandular density (ACR BI-RADS breast ?? composition Category b). ? There are no significant masses, abnormal calcifications, or other ?? abnormalities. ? MM/MM tomosynthesis screening BI ?? IMPRESSION: ?? No mammographic evidence of malignancy. ? ASSESSMENT: ? BI-RADS BI-RADS 1 - Negative ? RECOMMENDATION: ?? Routine annual mammography screening. ? 1 year F/U ? This examination should not preclude the clinical evaluation of a ?? suspicious palpable abnormality. ? This patient's information was entered into a reminder system with a ?? target due date for their next mammogram. ? Dictated By: ?Libby Causey MD ? Signed By: ?<Electronically signed by Libby Causey MD in OV> ? 07/05/23 1244 ? DD/ 1123 ? TD/TT: ? Commercial Fisher: ? Procedure Note Donmarleylaarmandoter, Image - 07/05/2023 Becky [facility] [address] [place] [address] Mammography Report Signed Patient: Smiley JoeMR#: [id number] : 1975Acct:[id number] Age/Sex: 47 / FADM Date: 06/14/23 Loc: HO.MAMMO Attending Dr: Yandy Lopez MD Ordering Physician: Yandy Perdomo MDResults: 1Negative Date of Service: 06/14/23Follow Up: 1 Year From Orig ina Mammogram Procedure(s): MM tomosynthesis screening BI Accession Number(s): [id number] cc: Yandy Perdomo MD EXAMINATION: MM SCREENING DIGITAL BREAST TOMOSYNTHESIS, BILATERAL CLINICAL INFORMATION: Screening. Asymptomatic. COMPARISON: Mammography: This study is compared with prior exams dating back to 2017. TECHNIQUE: Digital breast tomosynthesis is performed in both the craniocaudal and mediolateral oblique views along with computer-aided detection (CAD). Synthesized 2D images are generated from the tomosynthesis. FINDINGS: There are scattered areas of fibroglandular density (ACR BI-RADS breast composition Category b). There are no significant masses, abnormal calcifications, or other abnormalities. MM/MM tomosynthesis screening BI IMPRESSION: No mammographic evidence of malignancy. ASSESSMENT: BI-RADS BI-RADS 1 - Negative RECOMMENDATION: Routine annual mammography screening. 1 year F/U This examination should not preclude the clinical evaluation of a suspicious palpable abnormality. This patient's information was entered into a reminder system with a target due date for their next mammogram. Dictated By: Libby Causey MD Signed By: <Electronically signed by Libby Causey MD in OV> 07/05/23 1244 DD/ 1123 TD/TT: Commercial Fisher: us Yandy Lopez MD IMG BI PROCEDURES Fin al Result * (ABNORMAL) HEPATITIS C ANTIBODY RFLX (06/27/2019 12:05 PM EST) HEPATITIS C ANTIBODY REACTIVE( AA) NONREACTIVE [facility] Comment:Presumptive evidence of antibodies to HCV. 06/27/2019 12:0 5 PM EST us Yandy Lopez MD HISTORICAL/NON ORDERA BLE LABS Final Result Performing Organization Address City/State/[facility] Co de Phone Number [facility] [address] from Last 3 Months or Most Recently Relevant to Health Maintenance Insurance [facility] Care Teams Design Intern Relationship Specialty Start Date End Date Yandy Perdomo MD [address] [place] [phone] PCP - General Family Medicine 12/08/18
--- OUTSIDE RECORDS SUMMARY | 2024-06-19 12:32 | XMS_ITS | Encounter Summary ---
Author Organization [employer] Address [address] [facility] 7 [place] [address] Care Team Providers Care Sketch Artist Name Role Phone Yandy Perdomo MD Primary Care Provide r Reason for Visit * Reason Comments Med Refill Encounter Details Date Type Department Care Team ([facility] st Contact Info) Description 01/11/2024 Refill [facility] [address] [place] [address] Yandy Perdomo MD [address] [place] [address] Social History Tobacco Use Types Packs/Day Years [...] documented as of this encounter Care Teams Sketch Artist Relationship Specialty Start Date End Date Yandy Perdomo MD [address] [place] [address] PCP - General Family Medicine 12/08/18 documented as of this encounter
--- OUTSIDE RECORDS SUMMARY | 2024-06-19 12:32 | XMS_ITS | Encounter Summary ---
Author Organization [employer] Address [address] [facility] 7 [place] [address] Care Team Providers Care Natural Resource Economist Name Role Phone Yandy Perdomo MD Primary Care Provide r Reason for Visit * Reason Comments Med Refill Encounter Details Date Type Department Care Team ([facility] st Contact Info) Description 06/10/2024 Refill [facility] MEDICINE [address] [place] [address] Yandy Perdomo MD [address] [place] [address] Type 2 diabetes mellitus with other specified complication, unspecified whether oil heaterman insulin use ([facility]) Social History Tobacco Use Types Packs/Day Years [...] mellitus with other specified complication, unspecified whether oil heaterman insulin use ([facility]) documented in this encounter Additional Health Concerns Assessment Noted Time PHQ-9 Depression Total Score: 0 01/31/20 24 11:09 AM EDT documented as of this encounter Care Teams Natural Resource Economist Relationship Specialty Start Date End Date Yandy Perdomo MD [address] [place] [address] PCP - General Family Medicine 12/08/18 documented as of this encounter
== END 2024-06-19 10:33 | disposition home or self-care (01) ==
LOC: HO.MAMMO 10:32
PROVIDERS: PCP Internal Medicine; Visit Provider Internal Medicine
DX: Z12.31 Encounter for screening mammogram for malignant neoplasm of breast (principal)
CPT/HCPCS: 77063; 77067

== ENCOUNTER → 2024-06-19 11:00 | Outpatient (BNV) | payer OTHER, SELFPAY | PROVIDERS: PCP Internal Medicine; Visit Provider Internal Medicine | DX: Z12.31 Encounter for screening mammogram for malignant neoplasm of breast (principal) | CPT/HCPCS: 77063; 77067 ==

== ENCOUNTER 2024-08-27 10:45 | Outpatient (REF) | payer OTHER, SELFPAY ==
--- OUTSIDE RECORDS SUMMARY | 2024-08-27 12:14 | XMS_ITS | Encounter Summary ---
Author Organization [employer] Address [address] [place] [address] 7 [place] [address] Care Team Providers Care Natural Gas Inspector Name Role Phone Yandy Perdomo MD Primary Care Provide r Reason for Visit * Reason Comments Med Refill Encounter Details Date Type Department Care Team ([facility] Contact Info) Description 10/19/2022 Refill [facility] DIABETES/NUTRITION 230 [place] [address] Yandy Perdomo MD [address] [place] [address] Social History Tobacco Use Types Packs/Day Years [...] as of this encounter Plan of Treatment Upcoming Encounters Date Type Department Care Team ([facility] Contact Info) Description 10/08/2024 11:30 AM EDT Office Visit [facility] MEDICINE [address] [place] [address] Yandy Perdomo MD [address] [place], [place] [phone] documented as of this encounter Visit Diagnoses Not on filedocumented in this encounter Care Teams Natural Gas Inspector Relationship Specialty Start Date End Date Yandy Perdomo MD [address] [place] [address] PCP - General Family Medicine 12/08/18 documented as of this encounter
--- OUTSIDE RECORDS SUMMARY | 2024-08-27 12:14 | XMS_ITS | Encounter Summary ---
Author Organization [employer] Address [address] [facility] 7t [place] [address] Care Team Providers Care Bread Wrapping Machine Feeder Name Role Phone Yandy Perdomo MD Primary Care Provide r Encounter Details Date Type Department Care Team ([facility] Contact Info) Description 11/22/2023 Orders Only [facility] MEDICINE [address] [place] [address] Yandy Perdomo MD 230 [place] [address] Social History Tobacco Use Types Packs/Day Years [...] Upcoming Encounters Date Type Department Care Team (Late st Contact Info) Description 10/08/2024 11:30 AM EDT Office Visit [facility] MEDICINE [address] [place] [address] Yandy Perdomo MD [address] [place] [address] documented as of this encounter Visit Diagnoses Not on filedocumented in this encounter Additional Health Concerns Assessment Noted Time PHQ-9 Depression Total Score: 0 02/16/20 23 2:03 PM EDT documented as of this encounter Care Teams Bread Wrapping Machine Feeder Relationship Specialty Start Date End Date Yandy Perdomo MD [address] [place] [phone] PCP - General Family Medicine 12/08/18 documented as of this encounter
--- OUTSIDE RECORDS SUMMARY | 2024-08-27 12:14 | XMS_ITS | Encounter Summary ---
Author Organization [email or web address] Address [address] [place] [address] 7 [place] [address] Care Team Providers Care Certified Control Systems Technician Name Role Phone Yandy Perdomo MD Primary Care Provide r Reason for Visit * Reason Comments Med Refill Encounter Details Date Type Department Care Team (Late Contact Info) Description 12/14/[address] [facility] CHC MED & PEDS [address] [place] [address] Ada Perera DO [address] [place] [address] Type 2 diabetes mellitus with other specified complication, unspecified whether shelter insulin use ([facility]) Social History Tobacco Use Types Packs/Day Years [...] Encounters Date Type Department Care Team (Late Contact Info) Description 10/08/2024 11:30 AM EDT Office Visit 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) documented in this encounter Care Teams Certified Control Systems Technician Relationship Specialty Start Date End Date Yandy Perdomo MD 230 [place], [place] [phone] PCP - General Family Medicine 12/08/18 documented as of this encounter
--- OUTSIDE RECORDS SUMMARY | 2024-08-27 12:14 | XMS_ITS | Encounter Summary ---
Author Organization [employer] Address [address] [facility] 7 [place] [address] Care Team Providers Care Home Office Representative Name Role Phone Yandy Perdomo MD Primary Care Provide r Reason for Visit * Reason Comments Med Refill Encounter Details Date Type Department Care Team ([facility] st Contact Info) Description 01/11/2024 Refill [facility] MEDICINE 230 [place] [address] Yandy Perdomo MD [address] [place] [address] Social History Tobacco Use Types Packs/Day Years [...] is your housing situation today? I have rumapatric lares 07/26/[address] you [...] Description 10/08/2024 11:30 AM EDT Office Visit [facility] MEDICINE [address] [place] [address] Yandy Perdomo MD [address] [place] [phone] documented as of this encounter Visit Diagnoses Not on filedocumented in this encounter Additional Health Concerns Assessment Noted Time PHQ-9 Depression Total Score: 0 02/16/20 23 2:03 PM EDT documented as of this encounter Care Teams Home Office Representative Relationship Specialty Start Date End Date Yandy Perdomo MD [address] [place] [phone] PCP - General Family Medicine 12/08/18 documented as of this encounter
--- OUTSIDE RECORDS SUMMARY | 2024-08-27 12:14 | XMS_ITS | Encounter Summary ---
Author Organization [employer] Address [address] [place] [address] 7t [place] [address] Care Team Providers Care Manager Retail Store Name Role Phone Yandy Perdomo MD Primary Care Provide r Encounter Details Date Type Department Care Team ([facility] Contact Info) Description 12/15/2022 Orders Only [facility] CHC MED & PEDS [address] [place] [address] Ada Wise LPN Social History Tobacco Use [...] Upcoming Encounters Date Type Department Care Team ([facility] Contact Info) Description 10/08/2024 11:30 AM EDT Office Visit [facility] MEDICINE 230 [place] [address] Yandy Perdomo MD 230 [place] [address] documented as of this encounter Visit Diagnoses Not on filedocumented in this encounter Care Teams Manager Retail Store Relationship Specialty Start Date End Date Yandy Perdomo MD [address] [place] [address] PCP - General Family Medicine 12/08/18 documented as of this encounter
--- OUTSIDE RECORDS SUMMARY | 2024-08-27 12:15 | XMS_ITS | Clinical Summary ---
Author Organization [employer] Address [address] [place] [address] 7t [place] [address] Care Team Providers Care Vocational Evaluator Name Role Phone Yandy Perdomo MD Primary Care Provide r Allergies No known active allergies Medications * This document contains information received from the source organization and may not represent a complete record from that organization. ASPIRIN 81 PO take 1 tablet (81MG) by oral route every day 08/11/19 12 Active lisinopril 2.5 MG tablet Take 1 tablet by mouth at bed time. 08/11/19 12 Active docusate sodium (Colace) 100 MG capsule Take 1 capsule by mouth every 12 (twelve) hours. 12/09/19 19 Active glucose blood (FREESTYLE LITE) test strip every 12 (twelve) hours. 12/20/19 19 Active glucose blood (FREESTYLE LITE) test strip 08/21/19 10 Active ibuprofen 800 MG tablet Take 1 tablet by mouth every 8 (eight) hours. 04/22/20 21 Active levothyroxine (Tirosint) 137 MCG capsule Take by mouth before breakfast. Active fluconazole (Diflucan) 150 MG tabletIndicatio ns:Yeast infection Take one tablet then after 72 hrs take another tablet 2 tablet 02/16/20 23 Active fluconazole (Diflucan) 150 MG tabletIndicatio ns:Yeast infection Take one tablet then after 72hrs take another tablet 2 tablet 05/03/19 24 Active dulaglutide (Trulicity) 1.5 MG/0.5ML solution pen-injectorInd ications:Type 2 diabetes mellitus with hyperglycemia, with long-term current use of insulin ([facility]) Inject 1.5 mg under the skin 1 (one) time per week. 4 each 11 11/02/19 24 Active metFORMIN (Glucophage) 1000 MG tablet TAKE 1 TABLET BY MOUTH TWICE A DAY WITH BREAKFAST AND DINNER 180 tablet 1 06/12/19 25 Active pioglitazone (Actos) 15 MG tabletIndicatio ns:Type 2 diabetes mellitus with other specified complication, unspecified whether longwall foreman insulin use ([facility]) TAKE 1 TABLET BY MOUTH EVERY DAY 90 tablet 1 06/12/19 25 Active salicylic acid 17 % gelIndications: [facility] Apply one drop to cover corn or callus. Let dry. Repeat once or twice daily until corn is removed for up to 14 days. 14 g 06/22/19 25 Active Lantus SoloStar 100 UNIT/ML penIndications: Type 2 diabetes mellitus with other specified complication, unspecified whether longwall foreman insulin use ([facility]) INJECT 10 UNITS SUBCUTANEOUSLY EVERY EVENING 15 mL 3 07/12/19 25 Active Active Problems Problem Noted Date Diagnosed Date Thyroid cancer 06/22/2024 Class 1 obesity 06/22/2024 Type 2 diabetes mellitus 06/22/2024 [facility] 06/22/2024 Assessment & Plan (06/22/2024 4:07 PM EST): DP and PT pulses 2+ bilaterally, sensation intact, no neuropathy present Lump on foot appears to be a corn Advised warm compresses and salicylic acid topical Herpes zoster without complication 02/08/2024 Hemorrhoids 02/15/2023 [...] not tolerate invokana, patient already refer to interpreter and translator Assessment & Plan (10/15/2022 10:11 AM EDT): Extensive counseling marlin A1c went up to 11.1 she reports her injection made her glucose go higher I will increase her lantus to 20U at bed time I will increase glipizide to 10mg BID Referral to interpreter and translator and possible referral to endocrinology after this [...] done about patient to be referred to [facility] for further management, arrangements with insurance are being done Assessment & Plan (04/26/2023 4:48 PM EST): Awaiting for new referral for second opinion to [facility] Onychomycosis 09/25/2019 Depression with anxiety 09/16/2011 Assessment [...] Encounters Date Type Department Care Team Description 07/09/2024 Refill [facility] CHC MED & PEDS [address] [place], [place] [phone] Yandy Perdomo MD Type 2 diabetes mellitus with other specified complication, unspecified whether prison insulin use (CMS/HCC) 06/22/2024 3:45 PM EST Office Visit [facility] MEDICINE [address] [place] [phone] Vahe Bradford CNP [facility] (Primary Dx) 06/22/2024 Telephone [facility] MEDICINE [address] [place] [phone] Yandy Perdomo MD Chart Prep 06/21/2024 Telephone [facility] MEDICINE [address] [place] [phone] Yandy Perdomo MD Nurse Triage 06/19/2024 Orders Only [facility] MEDICINE [address] [place] [phone] Yandy Perdomo MD 06/10/2024 Refill [facility] MEDICINE [address] [place] [phone] Yandy ePrdomo MD Type 2 diabetes mellitus with other specified complication, unspecified whether prison insulin use (CMS/HCC) from Last 3 Months Immunizations Name Administration [...] Sign Reading Time Taken Comments Blood Pressure 134/86 06/22/2024 3:39 PM EST Pulse 91 06/22/2024 3:39 PM EST Temperature 36.6 ??C (97.8 ??F) 06/22/2024 3:39 PM ES T Respiratory Rate 18 06/22/2024 3:39 PM EST Oxygen Saturation 98% 06/22/2024 3:39 PM EST Inhaled Oxygen Concentration - - Weight 84.6 kg (186 lb 6.4 oz) 06/22/2024 3:39 P M EST Height 162.6 cm (5' 4 ) 02/08/2024 3:09 PM EDT Body Mass Index 32 02/08/2024 3:09 PM EDT Plan of Treatment Upcoming Encounters Date Type Department Care Team (Late st Contact Info) Description 10/08/2024 11:30 AM EDT Office Visit [facility] MEDICINE [address] [place] [address] Yandy Perdomo MD 230 [place] [address] Health Maintenance Due Date Last Done Comments CT Colonography 1974 FIT DNA/Cologuard 1974 FIT 1974 FOBT 1974 HIV Screening 1974 Sigmoidoscopy 1974 Eye Exam 1984 Alcohol/Substance Use Screening 1986 Family Planning (PISQ) 1989 Hepatitis B Vaccines (1 of 3 - 19+ 3-dose series) 1993 Colonoscopy 12/29/2022 Colorectal Cancer Screening 12/29/2022 COVID-19 Vaccine ( season) 2023 04/09/2022, 07/16/2020 DTaP/Tdap/Td Vaccines (2 - Td or Tdap) 12/27/2023 12/26/2013, 12/26/2013 Diabetes: Hemoglobin A1C 05/02/2024 024, 11/02/2023, 07/26/2023, Additional history exists SDOH Screening 07/25/2024 07/26/2023 Zoster Vaccines (1 of 2) 2024 Diabetes: Urine Protein Screening 11/24/2024 11/25/2023, 10/15/2022, 03/23/2021 Lipid Panel 11/24/2024 11/25/2023, 09/24, 03/23/2021 Depression Screening 01/30/2025 01/31/2024, 01/31/20 Tobacco Screening 02/07/2025 02/08/2024 Mammogram 06/19/2025 06/19/2024, 05/27, 06/20/2020, Additional history exists Diabetes: Foot Exam 06/22/2025 06/22/2024, 06/22/2024, 06/22/2024, Additional history exists RSV Patients and Patients Aged 60 years or older (1 - 1-dose 75+ series) 2049 Hepatitis C Screening Completed 06/27/2019 Pneumococcal Vaccine: 50+ Years Completed 11/02/2023 Influenza Vaccine Completed 01/31/2024, , [...] Procedure Name Priority Date/Time Associated Diagnosis Comments BI MAMMOGRAM SCREENING TOMOSYNTHESIS BILATERAL Routine 06/19/2024 10:35 AM EST POCT GLYCATED HEMOGLOBIN, TOTAL Routine 01/31/2024 11:10 AM EDT Type 2 diabetes mellitus with hyperglycemia, with long-term current use of insulin ([facility]) ALBUMIN, RANDOM URINE W/CREATININE Routine 11/25/2023 12:01 PM EDT Type 2 diabetes mellitus with hyperglycemia, with long-term current use of insulin (CMS/HCC) LIPID PANEL WITH REFLEX TO DIRECT LDL Routine 11/25/2023 12:01 PM EDT Type 2 diabetes mellitus with hyperglycemia, with long-term current use of insulin (CMS/HCC) ZZZ HISTORICAL HEPATITIS C ANTIBODY RFLX Routine 06/27/2019 12:05 PM EST from Last 3 Months or Most Recently Relevant to Health Maintenance Results * BI Mammogram Screening Tomosynthesis Bilateral (06/19/2024 10:35 AM EST) Anatomical Region Laterality Modality Breast Bilateral Mammography 06/19/2024 10:3 5 AM EST Narrative 06/23/2024 4:15 PM EST ? [facility] ? [address] ?[place] [address] ? Mammography Report ? Signed ? Patient: Ronald Joeice ?MR#: [id number] ? : 1975 ?Acct:[id number] ? Age/Sex: 48 / F ?ADM Date: 02/25/25 ? Loc: HO.MAMMO ? Attending Dr: Yandy Lopez MD ? Ordering Physician: Yandy Perdomo MD ?Results: ?? 1Negative ? Date of Service: /25/25 ?Follow Up: 1 Year From Orig ?? inal Mammogram ? Procedure(s): MM tomosynthesis screening BI ?? Accession Number(s): [id number] ? cc: Yandy Perdomo MD ? EXAMINATION: ?? MM SCREENING DIGITAL BREAST TOMOSYNTHESIS, BILATERAL ? CLINICAL INFORMATION: ? Screening. Asymptomatic. ? COMPARISON: ?? Mammography: Comparison is made with available priors ? TECHNIQUE: ?? Digital breast mammography with tomosynthesis is performed in both the ?? craniocaudal and mediolateral oblique views along with computer-aided ?? detection (CAD). ? FINDINGS: ?? There are scattered areas [...] due date for their next mammogram. ? Electronically signed by: ??Eileen Johnson DO ??06/23/2024 04:12 PM EST ? Dictated By: ?Eileen Johnson DO ? Signed By: ?<Electronically signed by Eileen Johnson, DO in OV> ? 06/23/24 1612 ? DD/ 1035 ? TD/TT: 06/19/24 1107 ? Deicer Inspector Electric: ? Procedure Note Ric Monroe - 06/23/2024 [facility] [address] [place] [address] Dr. Pena, [place] [address] Mammography Report Signed Patient: Smiley JoeMR#: [id number] : 1975Acct:[id number] Age/Sex: 48 / FADM Date: 06/19/24 Loc: HO.MAMMO Attending Dr: Yandy Lopez MD Ordering Physician: Yandy Perdomo MDResults: 1Negative Date of Service: 06/19/24Follow Up: 1 Year From Orig inal Mammogram Procedure(s): MM tomosynthesis screening BI Accession Number(s): [id number] cc: Yandy Perdomo MD EXAMINATION: MM SCREENING DIGITAL BREAST TOMOSYNTHESIS, BILATERAL CLINICAL INFORMATION: Screening. Asymptomatic. COMPARISON: Mammography: Comparison is made with available priors TECHNIQUE: Digital breast mammography with tomosynthesis is performed in both the craniocaudal and mediolateral oblique views along with computer-aided detection (CAD). FINDINGS: There are scattered areas of fibroglandular [...] target due date for their next mammogram. Electronically signed by: Eileen Johnson DO 06/23/2024 04:12 PM [facility] Dictated By: Eileen Johnson DO Signed By: <Electronically signed by Eileen Johnson DO in OV> 06/23/24 1612 DD/ 1035 TD/TT: 06/19/24 1107 Deicer Inspector Electric: us Yandy Lopez MD IMG BI PROCEDURES Fin al Result * (ABNORMAL) POCT HGB A1C (01/31/2024 11:10 AM EDT) Hemoglobin A1C 8.3(A) 4.0 - 6.0 % QC Media Lot # [id number] Lot# Expiration Date Blood 01/31/2024 11:1 0 AM EDT us Yandy Lopez MD POINT OF CARE TEST EN TER/EDIT ORDERABLES Final Result * (ABNORMAL) Lipid Panel with Reflex to Direct LDL (11/25/2023 12:01 PM EDT) Triglycerides 139 <150 mg/dL [facility] Comment:Desirable Triglyceri de: less than 150 mg/dLBorderline High Triglyceride 150-199 mg/dLHigh Triglyceride: 200-499 mg/dLVery High Triglyceride: greater than or equal to 5OO mg/dL Cholesterol 207(H) <200 mg/dL [facility] Comment:Desirable Cholestero l: less than 200 mg/dLBorderline High Cholesterol: 200-239 mg/dLHigh Cholesterol: greater than 239 mg/dL LDL Cholesterol Calculated 122(H) <100 mg/dL [facility] Comment:Desirable LDL: less than 100 mg/dLNear Optimal/Above Optimal LDL: 110- 129 mg/dLBorderline High LDL: 130-159 mg/dLHigh LDL: 160-189 mg/dLVery High LDL: greater than or equal to 190 mg/dL HDL Cholesterol 58 >40 mg/dL [facility] Comment:Desirable HDL: great er than 40 mg/dL Note: This HDL assay may give artificially low results in patients with liver disease. Blood 11/25/2023 12:0 1 PM EDT 11/25/2023 12:59 PM EDT us Yandy Lopez MD LAB BLOOD ORDERABLES Final Result [facility] [address] [place] [phone] * Albumin, Random Urine W/Creatinine (11/25/2023 12:01 PM EDT) Creatinine, Urine 160.13 mg/dL [facility] Microalbumin Urine 18.0 mg/L [facility] Microalbum Creatinine Ratio Ur 11.2 <30 ug/mg cr [facility] Comment:Albumin/Creatinine R atio Reference Ranges: Normal: < 30 ug/mg creatinine Microalbuminuria: 30 - 300 ug/mg creatinineClinical Albuminuria: > 300 ug/mg creatinine Urine (Urine, Random) 11/25/2023 12:01 PM EDT 11/25/2023 12:59 PM EDT us Yandy Lopez MD LAB URINE ORDERABLES Final Result Performing Organization Address [facility]/ZIP Co de Phone Number [facility] [address] [place] [address] [phone] * (ABNORMAL) HEPATITIS C ANTIBODY RFLX (06/27/2019 12:05 PM EST) HEPATITIS C ANTIBODY REACTIVE( AA) NONREACTIVE [facility] Comment:Presumptive evidence of antibodies to HCV. 06/27/2019 12:0 5 PM EST us Yandy Lopez MD HISTORICAL/NON ORDERA BLE LABS Final Result Performing Organization Address City/State/[facility] Co de Phone Number [facility] [address] from Last 3 Months or Most Recently Relevant to Health Maintenance Insurance [facility]ARE < [address] [place] [id number] Care Teams Vocational Evaluator Relationship Specialty Start Date End Date Yandy Perdomo MD [address] [place] [phone] PCP - General Family Medicine 12/08/18
[2024-08-27 12:19] LABS: Thyroid Stimulating Hormone 3.32 uIU/mL (0.32-4.0)
[2024-08-28 19:09] LABS: Thyroglobulin 0.1 ng/mL; Thyroglobulin Antibodies <1 IU/mL (< or = 1)
[2024-08-30 05:29] LABS: Thyroglobulin Antibody <1 IU/mL (<=1); Thyroglobulin Level <0.1 ng/mL
== END 2024-08-27 10:46 | disposition home or self-care (01) ==
LOC: HO.LAB 10:45
PROVIDERS: PCP Internal Medicine; Visit Provider Student in an Organized Health Care Education/Training Program
DX: E89.0 Postprocedural hypothyroidism (principal); Z85.850 Personal history of malignant neoplasm of thyroid
CPT/HCPCS: 36415; 84432; 84439; 84443; 86800

== ENCOUNTER 2024-11-05 18:02 | Outpatient (REF) | payer OTHER, SELFPAY ==
[2024-11-06 10:48] LABS: Bacterial Vaginosis PCR NEGATIVE (Negative); Candida Group PCR DETECTED (Not Detect); Candida glab krusei PCR DETECTED (Not Detect); Trichomonas vaginalis PCR NOT DETECTED (Not Detect)
== END 2024-11-05 18:03 | disposition home or self-care (01) ==
LOC: HO.HHCLNP 18:02
PROVIDERS: Visit Provider Internal Medicine
DX: N89.8 Other specified noninflammatory disorders of vagina (principal)
CPT/HCPCS: 81515

== ENCOUNTER 2025-02-01 11:30 | Outpatient (REF) | payer OTHER, SELFPAY ==
[2025-02-01 13:24] LABS: Alanine Aminotransferase 29 U/L (0-31); Albumin Level 4.2 g/dL (3.5-5.0); Alkaline Phosphatase 67 U/L (39-117); Anion Gap 10 (12-20); Aspartate Amino Transferase 28 U/L (5-31); Blood Urea Nitrogen 8 mg/dL (9-16); Calcium 9.2 mg/dL (8.4-10.2); Carbon Dioxide 26 mmol/L (22-29); Chloride 106 mmol/L (96-108); Cholesterol 170 mg/dL (<200); Estimated Glomerular Filt Rate > 60; HDL Cholesterol 43 mg/dL (>40); Potassium 3.9 mmol/L (3.3-5.1); Sodium 138 mmol/L (135-145); Total Protein 7.3 g/dL (6.5-8.0); Triglycerides 184 mg/dL (<150)
[2025-02-01 13:44] LABS: Microalbum/Creatinine Ratio Ur 9.2 ug/mg cr (<30)
== END 2025-02-01 11:31 | disposition home or self-care (01) ==
LOC: HO.HHCL 11:30
PROVIDERS: PCP Internal Medicine; Referring Provider Student in an Organized Health Care Education/Training Program; Visit Provider Internal Medicine
DX: E11.65 Type 2 diabetes mellitus with hyperglycemia (principal); Z79.4 Long term (current) use of insulin
CPT/HCPCS: 36415; 80053; 80061; 82043; 82570

== ENCOUNTER 2025-04-10 13:57 | Emergency (ER) | payer OTHER, SELFPAY ==
--- OUTSIDE RECORDS SUMMARY | 2025-04-10 19:21 | XMS_ITS | Encounter Summary ---
Author Organization [employer] Address [address] [place] [address] 7t [place] [address] Care Team Providers Care Golf Ball Inspector Name Role Phone Yandy Perdomo MD Primary Care Provide r Reason for Visit * Reason Comments Med Refill Encounter Details Date Type Department Care Team ([facility] Contact Info) Description 10/19/2022 Refill [facility] DIABETES/NUTRITION [address] [place] [address] Yandy Perdomo MD [address] [place] [address] Social History Tobacco Use Types Packs/Day Years [...] on filedocumented in this encounter Care Teams Golf Ball Inspector Relationship Specialty Start Date End Date Yandy Perdomo MD [address] [place] [address] PCP - General Family Medicine 12/08/18 documented as of this encounter
--- OUTSIDE RECORDS SUMMARY | 2025-04-10 19:21 | XMS_ITS | Encounter Summary ---
Author Organization [employer] Address [address] 7[address] [place] [address] Care Team Providers Care Bi Tester Name Role Phone Yandy Perdomo MD Primary Care Provide r Encounter Details Date Type Department Care Team ([facility] st Contact Info) Description 11/22/2023 Orders Only [facility] MEDICINE [address] [place] [address] Yandy Perdomo MD [address] [place] [address] Social History Tobacco Use Types Packs/Day Years [...] documented as of this encounter Care Teams Bi Tester Relationship Specialty Start Date End Date Yandy Perdomo MD [address] [place] [phone] PCP - General Family Medicine 12/08/18 documented as of this encounter
--- OUTSIDE RECORDS SUMMARY | 2025-04-10 19:21 | XMS_ITS | Clinical Summary ---
Author Organization [employer] Address [address] [facility] [address] [place] [address] Care Team Providers Care Hog Feeder Name Role Phone Yandy Perdomo MD Primary Care Provide r Allergies No known active allergies Medications * This document contains information received from the source organization and may not represent a complete record from that organization. ASPIRIN 81 PO take 1 tablet (81MG) by oral route every day 08/11/19 12 Active glucose blood (FREESTYLE LITE) test strip every 12 (twelve) hours. 12/20/19 19 Active glucose blood (FREESTYLE LITE) test strip 08/21/19 10 Active ibuprofen 800 MG tablet Take 1 tablet by mouth every 8 (eight) hours. 04/22/20 21 Active levothyroxine (Tirosint) 137 MCG capsule Take by mouth before breakfast. Active fluconazole (Diflucan) 150 MG tabletIndication s:Yeast infection Take one tablet then after 72 hrs take another tablet 2 tablet 02/16/20 23 Active fluconazole (Diflucan) 150 MG tabletIndication s:Yeast infection Take one tablet then after 72hrs take another tablet 2 tablet 05/03/19 24 Active salicylic acid 17 % gelIndications:C orn of foot Apply one drop to cover corn or callus. Let dry. Repeat once or twice daily until corn is removed for up to 14 days. 14 g 06/22/19 25 Active fluconazole (Diflucan) 150 MG tabletIndication s:Vaginal discharge Take one and then after 72 hrs take another tablet 1 tablet 11/06/19 25 Active metFORMIN (Glucophage) 1000 MG tabletIndication s:Type 2 diabetes mellitus with hyperglycemia, with long-term current use of insulin (HCC) Take 1 tablet (1,000 mg) by mouth with breakfast. 180 tablet 1 11/06/19 25 Active pen needle 31G x 5 mm miscIndications: Type 2 diabetes mellitus with hyperglycemia, with long-term current use of insulin ([facility]) Use as instructed 100 each 12 11/06/19 25 026 Active Blood Pressure Monitoring (Blood Pressure Cuff) miscIndications: Primary hypertension 1 each in the morning. 1 each 11/06/19 25 Active fluconazole (Diflucan) 150 MG tabletIndication s:Vaginal discharge Take 1 tablet then after 72 hours take another tablet 2 tablet 11/07/19 25 Active pioglitazone (Actos) 15 MG tabletIndication s:Type 2 diabetes mellitus with other specified complication, unspecified whether intermediate frame tender insulin use (HCC) TAKE 1 TABLET BY MOUTH EVERY DAY 90 tablet 1 01/12/20 25 Active GaviLAX 17 GM/SCOOP powderIndication s:Constipation, unspecified constipation type TAKE 17 G BY MOUTH ONCE PER DAY. 510 g 2 01/31/20 25 Active lisinopril 5 MG tabletIndication s:Primary hypertension TAKE 1 TABLET (5 MG) BY MOUTH ONCE PER DAY. 90 tablet 02/01/20 25 Active Continuous Glucose Neurophysiologist (FreeStyle Kevon 3 [place]) deviceIndication s:Type 2 diabetes mellitus with hyperglycemia, with long-term current use of insulin ([facility]) 1 each Once per day. Use as directed for CGM 1 each 02/12/20 25 Active Continuous Glucose Sensor (FreeStyle Kevon 3 Plus Sensor) miscIndications: Type 2 diabetes mellitus with hyperglycemia, with long-term current use of insulin ([facility]) 1 each every 15 days. Apply 1 every 15 days as directed for CGM 2 each 02/12/20 25 Active glucose blood (FreeStyle Precision Mazin Test) test stripIndications :Type 2 diabetes mellitus with hyperglycemia, with long-term current use of insulin ([facility]) Use to test blood sugar 3 times daily in case of CGM failure or extremes of BG 100 each 11 02/12/20 25 026 Active insulin glargine (Lantus SoloStar) 100 UNIT/ML penIndications:T ype 2 diabetes mellitus with hyperglycemia, with long-term current use of insulin ([facility]) Inject 28 Units under the skin at bedtime. INJECT 20 UNITS SUBCUTANEOUSLY EVERY EVENING 15 mL 3 02/12/20 25 Active Tirzepatide (Mounjaro) 2.5 MG/0.5ML solution auto-injectorInd ications:Type 2 diabetes mellitus with hyperglycemia, with long-term current use of insulin ([facility]) Inject 2.5 mg under the skin 1 (one) time per week. 2 mL 2 5 11:05 AM EST 02/12/20 25 Active docusate sodium (Colace) 100 MG capsuleIndicatio ns:Constipation, unspecified constipation type TAKE 1 CAPSULE BY MOUTH TWICE A DAY 60 capsule 1 03/04/20 25 Active Active Problems Problem Noted Date Diagnosed Date Moderate episode of recurren t major depressive disorder ([facility]) 02/11/2025 Assessment & Plan (02/12/2025 11:47 AM EDT): Moderate depressive symptoms and anxiety related to family and social stressors. Not interested in therapy or psychiatric medications at this time. - Advised to continue discussing concerns with family. Offered referral to therapist and psychiatric medications if needed in future. Constipation 11/05/2024 Assessment & Plan (11/05/2024 5:31 PM EDT): Drink plenty of water and include more fiber on diet, increase physical activity Colace and miralax prescribed Primary hypertension 11/05/2024 Assessment & Plan (11/05/2024 5:30 PM EDT): I advised: I went up on her lisinopril to 5mg daily - Aerobic exercise to reduce BP. Initial goal of 30 min walk 3-5x/week. Increase as tolerated. - low-sodium diet (goal: <2g/day) and heart healthy diet such as DASH to reduce BP and prevent ASCVD. - Home BP monitoring 1-2 x day with goal of <140/90. - Seek immediate medical attention for chest pain, palpitations, SOB, syncope, or sudden changes in mental status. - Do not change or discontinue current prescriptions without first consulting health care provider Thyroid cancer ([facility]) 06/22/2024 Class 1 obesity 06/22/2024 Type 2 diabetes mellitus 06/22/2024 [place] of foot 06/22/2024 Assessment & Plan (06/22/2024 [...] use of insulin 07/14/2022 Assessment & Plan (02/12/2025 11:45 AM EDT): Poor glycemic control with persistent hyperglycemia despite increased insulin dosing and adherence to dietary modifications. A1c elevated at 12.7%. Trulicity discontinued. No evidence of weight gain; weight loss noted. - Prescribed Mounjaro to replace Trulicity. Prescribed Freestyle continuous glucose monitor with pre-authorization and referral to pharmacist for education and medication titration. Continue insulin and metformin. Monitor glucose levels closely. Follow-up consultation to be scheduled after device approval. Assessment & Plan (11/05/2024 5:33 PM EDT): Diabetes is: not controlled - Lab Results Component Value Date HGBA1C 9.9 (A) 11/05/2024 HGBA1C 8.3 (A) 01/31/2024 HGBA1C 8.6 (A) 11/02/2023 - Lab Results Component Value Date MICROALBUR 18.0 11/25/2023 CREATININE 0.65 10/15/2022 -Changes: lantus increase to 20 units at bed time, trulicity 3mg weekly c/w rest o medication - Diabetic eye exam: up to date - Diabetic foot exam: pending - Continue lifestyle modifications - Continue current medications - Follow up: 3 months Assessment & Plan (01/31/2024 3:44 PM EDT): [...] not tolerate invokana, patient already refer to embedded systems designer Assessment & Plan (10/15/2022 10:11 AM EDT): Extensive counseling marlin A1c went up to 11.1 she reports her injection made her glucose go higher I will increase her lantus to 20U at bed time I will increase glipizide to 10mg BID Referral to embedded systems designer and possible referral to endocrinology after this [...] 07/14/2022 Elevated LFTs 03/27/2022 Follicular thyroid carcinoma (CMS/HCC) Assessment & Plan (02/12/2025 11:48 AM EDT): - Follicular carcinoma of the thyroid managed with levothyroxine 137 mcg daily. Awaiting results of recent bloodwork to determine need for dose adjustment. - Continue current levothyroxine dose pending lab results. Will review thyroid function and adjust medication as indicated. Assessment & Plan (11/03/2023 2:44 PM EDT): Patient continues to follow with specialist conversation done about patient to be referred to [place] for further management, arrangements with insurance are being done Assessment & Plan (04/26/2023 4:48 PM EST): Awaiting for new referral for second opinion to [place] Vaginal discharge 03/27/2022 Onychomycosis 09/25/2019 Depression with anxiety 09/16/2011 Assessment [...] weight reduction C/w lisinopril 2.5mg Obesity 09/16/2011 Assessment & Plan (02/12/2025 11:47 AM EDT): Dietary modifications discussed; patient reports reduced intake of rice, bread, and juice. - Reinforced dietary counseling and adherence to current recommendations. Engaged in regular physical activity with gym attendance and use of exercise equipment; encouraged to increase frequency and variety of exercise. - Recommended increasing exercise frequency beyond weekends, including home- based activities such as dancing, aerobics, resistance training, and use of small weights and resistance bands. Obesity with BMI in Class 1 range; no current weight gain, weight loss noted. - Initiated Mounjaro for dual benefit of glycemic control and weight management. Reinforced exercise and dietary recommendations. Type 2 diabetes mellitus without complication Resolved [...] thyroid biopsy 03/27/202206/23 Acute otitis media 03/27/2022 3 Thyroid nodule 03/27/2022 07/11/2022 Vaginitis and vulvovaginitis 09/16/2011 07/11/2022 Encounters Date Type Department Care Team Description 04/10/2025 Telephone [facility] [address] [place] [phone] Yandy Perdomo MD Nurse Triage 04/03/2025 Telephone [facility] [address] [place] [phone] Yandy Perdomo MD 03/02/2025 Refill [facility] [address] [place] [phone] Yandy Perdomo MD Constipation, unspecified constipation type 02/22/2025 Telephone [facility] [address] [place] [phone] Yandy Perdomo MD BOO RECALL 02/12/2025 Telephone [facility] [address] [place] [phone] Ana Martinez, YULI CGM PA 02/11/2025 11:00 AM EDT Office Visit [address] [phone] Yandy Perdomo MD Moderate episode of recurrent major depressive disorder (CMS/HCC) (HCC) (Primary Dx); Type 2 diabetes mellitus with hyperglycemia, with long-term current use of insulin (HCC); Dietary counseling; Exercise counseling; Class 1 obesity due to excess calories with serious comorbidity and body mass index (BMI) of 31.0 to 31.9 in adult; Follicular thyroid carcinoma (CMS/HCC) (HCC); Screening for colon cancer 02/11/2025 Travel 02/08/2025 Telephone [facility] [address] [place] [phone] Yandy Perdomo MD Chart Prep 01/31/2025 Patient Outreach [facility] [address] [place] [phone] Yandy Perdomo MD Pre-visit Planning (SDOH screening completed on 09/28/2024) 01/31/2025 Refill [facility] [address] [place] [address] [phone] Yandy Perdomo MD Primary hypertension 01/30/2025 Refill [facility] [address] [place] [phone] Yandy Perdomo MD Constipation, unspecified constipation type 01/10/2025 Refill [facility] [address] [place] [address] Yandy Perdomo MD Type 2 diabetes mellitus with other specified complication, unspecified whether alf insulin use ([facility]) from Last 3 Months Immunizations Immunization Administration Dates Next Due Influenza injectable quadriv [...] housing situation today? I have ruma lares 09/28/[address] you li ve. Do you have problems with any of the following? None of the above 09/28/2024 Food Insecurity Answer Date Recorded Within the past 12 months, y ou worried that your food would run out before you got money to buy more: Never True 09/28/2024 Within the past 12 months,th e food you bought just didn't last and you didn't have enough money to get more: Never True 09/2024 Transportation Answer Date Recorded In the past 12 months, has l ack of transportation kept you from medical appts, meetings, work or from getting things needed for daily living? No 09/28/2024 Utilities Answer Date Recorded In the past 12 months, has t he electric, gas, oil or water company threatened to shut off services in your home? No 09/28/2024 Depression Answer Date Recorded Patient Health Questionnaire-2 Score 0 01/31/2024 Internet Access Answer Date Recorded Internet Access Q1 Yes 09/28/2024 Internet Access Q2 Not on file 09/28/2024 Comments No Sex and Gender Information Value Date Recorded Sex Assigned at Female 02/22/2022 10:17 AM EDT Legal Sex Female 10:17 AM EDT Gender Identity Female 02/22/2022 10:17 AM EDT Sexual Orientation Straight 02/22/2022 10 :17 AM EDT Last Filed Vital Signs Vital Sign Reading Time Taken Comments Blood Pressure 130/90 02/11/2025 11:24 AM EDT Pulse 86 02/11/2025 11:24 AM EDT Temperature 36.3 C (97.4 F) 02/11/2025 11:24 AM EDT Respiratory Rate 17 02/11/2025 11:2 4 AM EDT Oxygen Saturation 96% 02/11/2025 11: 24 AM EDT Inhaled Oxygen Concentration - - Weight 80.2 kg (176 lb 12.8 oz) 025 11:24 AM EDT Height 162.6 cm (5' 4 ) 02/11/2025 11:2 4 AM EDT Body Mass Index 30.35 02/11/2025 11:24 AM EDT Plan of Treatment Health Maintenance Due Date Last Done Comments CT Colonography 1974 FIT DNA/Cologuard 1974 FIT 1974 FOBT 1975 HIV Screening 1975 Sigmoidoscopy 1974 Eye Exam 1984 Alcohol/Substance Use Screening 1986 Family Planning (PISQ) 1989 Hepatitis B Vaccines (1 of 3 - 19+ 3-dose series) 1993 Colonoscopy 12/29/2022 Colorectal Cancer Screening 12/29/2022 DTaP/Tdap/Td Vaccines (2 - Td or Tdap) 12/27/2023 12/26/2013, 12/26/2013 RSV Patients and Patients Aged 60 years or older (1 - Risk 50-74 years 1-dose series) 2024 Zoster Vaccines (1 of 2) 2024 COVID-19 Vaccine (3 - season) 2024 04/09/2022, 07/16/2020 Influenza Vaccine (#1) 2024 , 02/15/2023, 03/24/2021, Additional history exists Depression Screening 01/30/2025 01/31/2024, 01/31/20 Diabetes: Hemoglobin A1C 05/14/2025 025, 11/05/2024, 01/31/2024, Additional history exists Mammogram 06/19/2025 06/19/2024, 05/27, 06/20/2020, Additional history exists Diabetes: Foot Exam 06/22/2025 06/22/2024, 06/22/2024, 06/22/2024, Additional history exists SDOH Screening 09/28/2025 09/28/2024 Disability Screening 11/05/2025 11/05/2024 Diabetes: Urine Protein Screening 02/01/2026 02/01/2025, 11/25/2023, 10/15/2022, Additional history exists Lipid Panel 02/01/2026 02/01/2025, 0805/2023, 10/15/2022, Additional history exists Tobacco Screening 02/11/2026 02/11/2025 Hepatitis C Screening Completed 06/27/2019 Pneumococcal Vaccine: 50+ Years Completed 11/02/2023 HIB Vaccines Aged Out No longer eligi [...] patient's age to complete this topic Meningococcal B Vaccine Aged Out No l onger eligible based on patient's age to complete this topic Meningococcal Vaccine Aged Out No edison gorge eligible based on patient's age to complete this topic RSV under 20 months Aged Out No longe r eligible based on patient's age to complete this topic Rotavirus Vaccines Aged Out No longer eligible based on patient's age to complete this topic Goals Goal Patient Goal Type Associated Problems Recent Progress Patient-Stated? Author Help patients manage their type 2 diabetes Care Plan Help patients manage their type 2 diabetes Farzad Cifuentes, PharmD Weekly blood pressure task Care Plan Weekly blood pressure task No Farzad Ledesma PharmD Help patients manage their type 2 diabetes Care Plan Help patients manage their type 2 diabetes No Farzad Ledesma, PharmAniya Patient has chronic kidney disease Care Plan Patient has chronic kidney disease No Farzad Ledesma PharmD Weekly blood pressure task Care Plan Weekly blood pressure task No Farzad Ledesma, PharmAniya Patient has chronic kidney disease Care Plan Patient has chronic kidney disease No Farzad Ledesma PharmD Weekly blood pressure task Care Plan Weekly blood pressure task No Shelby Garzangelie Weekly blood pressure task Care Plan Weekly blood pressure task No Greg Rosangelie Patient has chronic kidney disease Care Plan Patient has chronic kidney disease No Greg, Rosangelie Patient has chronic kidney disease Care Plan Patient has chronic kidney disease No Shelby Garzangelie Weekly blood pressure task Care Plan Weekly blood pressure task No Colon Dubon, Delores Weekly blood pressure task Care Plan Weekly blood pressure task No Colon Dubon, Delores Patient has chronic kidney disease Care Plan Patient has chronic kidney disease No Colon Dubon, Delores Patient has chronic kidney disease Care Plan Patient has chronic kidney disease No Colon Dubon, Delores Procedures Procedure Name Priority Date/Time Associated Diagnosis Comments POCT GLYCATED HEMOGLOBIN, TOTAL Routine 02/11/2025 11:29 AM EDT Type 2 diabetes mellitus with hyperglycemia, with long-term current use of insulin ([facility]) POCT GLUCOSE Routine 02/11/2025 11:29 AM EDT Type 2 diabetes mellitus with hyperglycemia, with long-term current use of insulin ([facility]) COMPREHENSIVE METABOLIC PANEL Routine 02/01/2025 11:35 AM EDT Type 2 diabetes mellitus with hyperglycemia, with long-term current use of insulin ([facility]) LIPID PANEL, STANDARD Routine 02/01/2025 11:35 AM EDT Type 2 diabetes mellitus with hyperglycemia, with long-term current use of insulin ([facility]) ALBUMIN, RANDOM URINE W/CREATININE Routine 02/01/2025 11:30 AM EDT Type 2 diabetes mellitus with hyperglycemia, with long-term current use of insulin ([facility]) BI MAMMOGRAM SCREENING TOMOSYNTHESIS BILATERAL Routine 06/19/2024 10:35 AM EST [facility] HISTORICAL HEPATITIS C ANTIBODY RFLX Routine 06/27/2019 12:05 PM EST from Last 3 Months or Most Recently Relevant to Health Maintenance Results * (ABNORMAL) POCT Hgb A1c (02/11/2025 11:29 AM EDT) Hemoglobin A1C 12.7(A) 4.0 - 5.7 % QC Media Lot # [id number] Lot# Expiration Date 51,227 Blood 02/11/2025 11:2 9 AM EDT Yandy Lopez MD POINT OF CARE TEST EN TER/EDIT ORDERABLES Final Result * (ABNORMAL) POCT Glucose (02/11/2025 11:29 AM EDT) Pathologist [facility] Glucose Blood, POC 500(A) 60 - 200 mg/dL Comment:[facility] QC Media Lot # [id number] Lot# Expiration Date 31,126 Blood Capillary blood specimen / Unknown 02/11/2025 11:29 AM EDT Yandy Lopez MD POINT OF CARE TEST EN TER/EDIT ORDERABLES Final Result * (ABNORMAL) Lipid Panel, Standard (02/01/2025 11:35 AM EDT) Triglycerides 184(H) <150 mg/dL [facility] Comment:Desirable Triglyceri de: less than 150 mg/dLBorderline High Triglyceride 150-199 mg/dLHigh Triglyceride: 200-499 mg/dLVery High Triglyceride: greater than or equal to 5OO mg/dL Cholesterol 170 <200 mg/dL [facility] Comment:Desirable Cholestero l: less than 200 mg/dLBorderline High Cholesterol: 200-239 mg/dLHigh Cholesterol: greater than 239 mg/dL LDL Cholesterol Calculated 91 <100 mg/dL [facility] Comment:Desirable LDL: less than 100 mg/dLNear Optimal/Above Optimal LDL: 110- 129 mg/dLBorderline High LDL: 130-159 mg/dLHigh LDL: 160-189 mg/dLVery High LDL: greater than or equal to 190 mg/dL HDL Cholesterol 43 >40 mg/dL [facility] Comment:Desirable HDL: great er than 40 mg/dL Note: This HDL assay may give artificially low results in patients with liver disease. Blood Venous blood specimen / Unknown 02/01/2025 11:35 AM EDT 02/01/2025 12:50 PM EDT us Yanyd Lopez MD LAB BLOOD ORDERABLES Final Result [facility] [address] [place] [phone] * (ABNORMAL) Comprehensive Metabolic Panel (02/01/2025 11:35 AM EDT) Sodium 138 135 - 145 mmol/L [facility] Potassium 3.9 3.3 - 5.1 mmol/L [facility] Chloride 106 96 - 108 mmol/L [facility] Carbon Dioxide 26 22 - 29 mmol/L [facility] Anion Gap 10(L) 12 - 20 [facility] Urea Nitrogen (BUN) 8(L) 9 - 16 mg/dL [facility] Creatinine, Serum 0.61 0.5 - 1.4 mg/dL [facility] Estimated Glomerular Filt Rate >60 [facility] Comment:Chronic Kidney Disea se: Estimated GFR < 60 mL/min/[id number] Kidney Disease: Estimated GFR < 15 mL/min/1.73m2 Glucose 222(H) 60 - 115 mg/dL [facility] Calcium 9.2 8.4 - 10.2 mg/dL [facility] Bilirubin, Total 1.1(H) 0.0 - 1.0 mg/dL [facility] Aspartate Amino Transferase 28 5 - 31 U/L [facility] Alanine Aminotransferase 29 0 - 31 U/L [facility] Total Protein 7.3 6.5 - 8.0 g/dL [facility] Albumin Level 4.2 3.5 - 5.0 g/dL [facility] Alkaline Phosphatase 67 39 - 117 U/L [facility] Blood Venous blood specimen / Unknown 02/01/2025 11:35 AM EDT 02/01/2025 12:50 PM EDT us Yandy Lopez MD LAB BLOOD ORDERABLES Final Result Performing Organization Address [facility] Co de Phone Number [facility] [address] [place] [phone] * Albumin, Random Urine W/Creatinine (02/01/2025 11:30 AM EDT) Creatinine, Urine 172.11 mg/dL [facility] Microalbumin Urine 16.0 mg/L [facility] Microalbum Creatinine Ratio Ur 9.2 <30 ug/mg cr [facility] Comment:Albumin/Creatinine R atio Reference Ranges: Normal: < 30 ug/mg creatinine Microalbuminuria: 30 - 300 ug/mg creatinineClinical Albuminuria: > 300 ug/mg creatinine Urine (Urine, Random) 02/01/2025 11:30 AM EDT 02/01/2025 12:52 PM EDT us Yandy Lopez MD LAB URINE ORDERABLES Final Result Performing Organization Address [facility] Co de Phone Number [facility] [address] [place] [phone] * BI Mammogram Screening Tomosynthesis Bilateral (06/19/2024 10:35 AM EST) Anatomical Region Laterality Modality Breast Bilateral Mammography 06/19/2024 10:3 5 AM EST Narrative 06/23/2024 4:15 PM EST [facility] [address] [place] [address] [place] [id number] Mammography Report Signed Patient: Smiley Joe MR#: [id number] : 1975 Acct:[id number] Age/Sex: 48 / F ADM Date: 06/19/24 Loc: MATTSagrarioFER Attending Dr: Yandy Lopez MD Ordering Physician: Yandy Perdomo MD Results: 1Negative Date of Service: 06/19/24 Follow Up: 1 Year From Orig inal Mammogram Procedure(s): MM tomosynthesis screening BI Accession Number(s): [id number] cc: Yandy Perdomo MD EXAMINATION: MM SCREENING [...] by: Eileen Johnson DO 06/23/2024 04:12 PM [facility] Dictated By: Eileen Johnson DO Signed By: <Electronically signed by Eileen Johnson DO in OV> 06/23/24 1612 DD/ 1035 TD/TT: 06/19/24 1107 Minute Clerk: Procedure Note Donotuseinterpreter, Image - 06/23/2024 [facility] [address] [place] [address] [place] [address] Mammography Report Signed Patient: Smiley JoeMR#: [id number] : 1975Acct:[id number] Age/Sex: 48 / FADM Date: 06/19/24 Loc: HO.MAMMO Attending Dr: Yandy Lopez MD Ordering Physician: Yandy Perdomo MDResults: 1Negative Date of Service: 06/19/24Follow Up: 1 Year From Orig ina Mammogram Procedure(s): MM tomosynthesis screening BI Accession Number(s): [id number] cc: Yandy Perdomo MD EXAMINATION: MM SCREENING [...] by: Eileen Johnson DO 06/23/2024 04:12 PM EST Dictated By: Eileen Johnson DO Signed By: <Electronically signed by Eileen Johnson DO in OV> 06/23/24 1612 DD/ 1035 TD/TT: 06/19/24 1107 Minute Clerk: us Yandy Lopez MD IMG BI PROCEDURES Fin al Result * (ABNORMAL) HEPATITIS C ANTIBODY RFLX (06/27/2019 12:05 PM EST) HEPATITIS C ANTIBODY REACTIVE( AA) NONREACTIVE [facility] Comment:Presumptive evidence of antibodies to HCV. 06/27/2019 12:0 5 PM EST us Yandy Lopez MD HISTORICAL/NON ORDERA BLE LABS Final Result [facility] [address] from Last 3 Months or Most Recently Relevant to Health Maintenance Additional Health Concerns Active Problems Noted Date Diagnosed Date Help patients manage their type 2 diabetes 03/25 Weekly blood pressure task 03/25/2025 Help patients manage their type 2 diabetes 03/25 Patient has chronic kidney disease 03/25/2025 Weekly blood pressure task 03/25/2025 Patient has chronic kidney disease 03/25/2025 Weekly blood pressure task 04/03/2025 Weekly blood pressure task 04/03/2025 Patient has chronic kidney disease 04/03/2025 Patient has chronic kidney disease 04/03/2025 Weekly blood pressure task 04/10/2025 Weekly blood pressure task 04/10/2025 Patient has chronic kidney disease 04/10/2025 Patient has chronic kidney disease 04/10/2025 Insurance [facility] < 65 [address] [place] [id number] Care Teams Hog Feeder Relationship Specialty Start Date End Date Yandy Perdomo MD [address] [place] [address] PCP - General Family Medicine 12/08/18
--- OUTSIDE RECORDS SUMMARY | 2025-04-10 19:21 | XMS_ITS | Encounter Summary ---
Author Organization [employer] Address [address] [facility] 7t [place] [address] Care Team Providers Care Drying Machine Operator Name Role Phone Yandy Perdomo MD Primary Care Provide r Reason for Visit * Reason Comments Med Refill Encounter Details Date Type Department Care Team ([facility] Contact Info) Description 10/14/2024 Refill [facility] MEDICINE [address] [place] [address] Yandy Perdomo MD [address] [place] [address] Type 2 diabetes mellitus with other specified complication, unspecified whether assisted insulin use ([facility]) Social History Tobacco Use Types Packs/Day Years [...] with other specified complication, unspecified whether 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
--- OUTSIDE RECORDS SUMMARY | 2025-04-10 19:21 | XMS_ITS | Encounter Summary ---
Author Organization [employer] Address [address] [facility] 7t [place] [address] Care Team Providers Care Beeswax Bleacher Name Role Phone Yandy Perdomo MD Primary Care Provide r Reason for Visit * Reason Onset Date Comments Appointment Request 11/09/2024 Encounter Details Date Type Department Care Team ([facility] Contact Info) Description 11/09/2024 Telephone [facility] MEDICINE [address] [place] [address] Yandy Perdomo MD [address] [place] [address] Appointment Request Social History Tobacco Use Types Packs/Day Years [...] AM EDT documented as of this encounter Miscellaneous Notes * Telephone Encounter - Reno Encinas - 11/09/2024 12:06 PM EDT Tc from pt requesting to r/s an apt for the injection. Contact pt at [phone] documented in this encounter Plan of Treatment Not on file documented as of this encounter Visit Diagnoses Not on filedocumented in this encounter Additional Health Concerns Assessment Noted Time PHQ-9 Depression Total Score: 0 01/31/20 24 11:09 AM EDT documented as of this encounter Care Teams Beeswax Bleacher Relationship Specialty Start Date End Date Yandy Perdomo MD [address] [place] [id number] PCP - General Family Medicine 12/08/18 documented as of this encounter
--- OUTSIDE RECORDS SUMMARY | 2025-04-10 19:21 | XMS_ITS | Encounter Summary ---
Author Organization [employer] Address [address] [facility] 7t [place] [address] Care Team Providers Care Clinical Medical Transcriptionist Name Role Phone Yandy Perdomo MD Primary Care Provide r Reason for Visit * Reason Onset Date Comments Nurse Triage 04/10/2025 Encounter Details Date Type Department Care Team ([facility] st Contact Info) Description 04/10/[address] [facility] MEDICINE [address] [place] [address] Yandy Perdomo MD [address] [place] [address] Nurse Triage Social History Tobacco Use Types Packs/Day Years [...] encounter Miscellaneous Notes * Telephone Encounter - Delores Dubon - 04/10/2025 9:50 AM EST Symptom: Rash or Redness on One Body Area Only Outcome: Schedule an urgent appointment (within 4 hours) or talk to a nurse or provider soon Reason: Skin is painful to touch The caller accepted this outcome. Contact pt [phone] documented in this encounter Plan of Treatment Not on file documented as of this encounter Goals Goal Patient Goal Type Associated Problems Recent Progress Patient-Stated? Author Help patients manage their type 2 diabetes Care Plan Help patients manage their type 2 diabetes No Farzad Ledesma PharmD Weekly blood pressure task Care Plan Weekly blood pressure task No Farzad Ledesma PharmD Help patients manage their type 2 diabetes Care Plan Help patients manage their type 2 diabetes No Farzad Ledesma PharmD Patient has chronic kidney disease Care Plan Patient has chronic kidney disease No Farzad Ledesma PharmD Weekly blood pressure task Care Plan Weekly blood pressure task No Farzad Ledesma PharmD Patient has chronic kidney disease Care Plan Patient has chronic kidney disease No Farzad Ledesma, Artie Weekly blood pressure task Care Plan Weekly blood pressure task No Anna Garza Weekly blood pressure task Care Plan Weekly blood pressure task No Anna Garza Patient has chronic kidney disease Care Plan Patient has chronic kidney disease No Anna Garza Patient has chronic kidney disease Care Plan Patient has chronic kidney disease No Anna Garza Weekly blood pressure task Care Plan Weekly blood pressure task No Colon Delores Dubon Weekly blood pressure task Care Plan Weekly blood pressure task No Colon Jagdish Delores Patient has chronic kidney disease Care Plan Patient has chronic kidney disease No Colon Jagdish Delores Patient has chronic kidney disease Care Plan Patient has chronic kidney disease No Colon Delores Dubon documented as of this encounter Visit Diagnoses Not on filedocumented in this encounter Additional Health Concerns Active Problems Noted Date [...] 04/10/2025 Patient has chronic kidney disease 04/10/2025 Assessment Noted Time PHQ-9 Depression Total Score: 0 01/31/20 24 11:09 AM EDT documented as of this encounter Care Teams Clinical Medical Transcriptionist Relationship Specialty Start Date End Date Yandy Perdomo MD [address] [place] [phone] PCP - General Family Medicine 12/08/18 documented as of this encounter
--- OUTSIDE RECORDS SUMMARY | 2025-04-10 19:21 | XMS_ITS | Encounter Summary ---
Author Organization [employer] Address [address] [facility] 7t [place] [address] Care Team Providers Care Quarter Doper Name Role Phone Yandy Perdomo MD Primary Care Provide r Reason for Visit * Reason Comments Med Refill Encounter Details Date Type Department Care Team ([facility] Contact Info) Description 01/11/2024 Refill [facility] MEDICINE [address] [place] [address] Yandy Perdomo MD [address] [place] [address] Social History Tobacco Use Types Packs/Day Years [...] documented as of this encounter Care Teams Quarter Doper Relationship Specialty Start Date End Date Yandy Perdomo MD [address] [place] [phone] PCP - General Family Medicine 12/08/18 documented as of this encounter
--- OUTSIDE RECORDS SUMMARY | 2025-04-10 19:21 | XMS_ITS | Encounter Summary ---
Author Organization [employer] Address [address] [place] [address] 7t [place] [address] Care Team Providers Care Marine Design Engineer Name Role Phone Yandy Perdomo MD Primary Care Provide r Reason for Visit * Reason Comments Med Refill Encounter Details Date Type Department Care Team ([facility] st Contact Info) Description 12/14/2022 Refill [facility] MED & PEDS [address] [place], [place] [phone] Ada Perera DO [address] [place] [address] Type 2 diabetes mellitus with other specified complication, unspecified whether halfway insulin use ([facility]) Social History Tobacco Use Types Packs/Day Years [...] with other specified complication, unspecified whether 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
--- OUTSIDE RECORDS SUMMARY | 2025-04-10 19:21 | XMS_ITS | Encounter Summary ---
Author Organization [employer] Address [address] [facility] 7t [place] [address] Care Team Providers Care Senior Manufacturing Test Engineer Name Role Phone Yandy Perdomo MD Primary Care Provide r Encounter Details Date Type Department Care Team (Late st Contact Info) Description 12/15/2022 Orders Only [facility] CHC MED & PEDS [address] [place] [address] Ada Wise LPN Social History Tobacco Use [...] on filedocumented in this encounter Care Teams Senior Manufacturing Test Engineer Relationship Specialty Start Date End Date Yandy Perdomo MD [address] [place] [id number] PCP - General Family Medicine 12/08/18 documented as of this encounter
== END 2025-04-10 14:45 | disposition left against medical advice (07) ==
PROVIDERS: Emergency Provider Emergency Medicine; PCP Internal Medicine
DX: R10.9 Unspecified abdominal pain (principal)